=== PATIENT | female | born 1950 | race Caucasian/White ===

== ENCOUNTER 2018-10-02 23:02 | Emergency (ER) | payer BC, OTHER ==
[2018-10-03] MEDS ORDERED: FENTANYL CITR 100 MCG/2 ML ONE (00:34)
[2018-10-03 00:38] LABS: Urine Appearance CLEAR; Urine Bilirubin NEGATIVE (NEG); Urine Blood TRACE (NEG); Urine Color ORANGE; Urine Glucose NEGATIVE (NEG); Urine Protein NEGATIVE (NEG); Urine Specific Gravity <=1.005 (1.005-1.030); Urine pH 6.5 (5.0-7.0)
[2018-10-03 00:53] LABS: Urine Bacteria <20 /HPF (<20); Urine Culture Reflex Order NOT NEEDED; Urine RBC <5 /HPF (NONE SEEN)
[2018-10-03 04:09] LABS: Albumin 4.2 g/dL (3.4-5.0); Bilirubin Direct 0.1 mg/dL (0-0.2); Bilirubin Total 0.4 mg/dL (0.2-1.0); Protein, Total 7.3 g/dL (6.4-8.2)
[2018-10-03] MEDS ORDERED: NA CHLORIDE 0.9% 1,000 ML ONE (04:16)
[2018-10-03 04:46] LABS: Absolute Monocytes 0.4 K/uL (0.1-1.3); Absolute Neutrophil 3.1 K/uL (1.8-8.0); Basophils % 0.6 % (0-1.3); Eosinophils % 1.8 % (0-4.4); Lymphocytes % 35.2 % (15.3-44.8); MCH 31.5 pg (27.0-35.0); MCV 92.2 fL (80-100); MPV 10.3 fL (7.6-11.3); Monocytes % 7.4 % (3.3-12.3); RBC Red Blood Cell Count 4.44 M/uL (3.86-4.86)
[2018-10-03 04:48] LABS: Potassium 3.7 mmol/L (3.5-5.1)
[2018-10-03 05:07] LABS: Blood Morphology Comment NOT SEEN (NOT SEEN); Platelet Estimate ADEQ
--- NOTE | 2018-10-03 05:50 | ER ---
Nurse's Notes [facility] Name: Andreina Brock Age: 68 yrs Sex: Female : 1950 Arrival Date: 10/02/2018 Time: 23:09 Bed 4 Private MD: Diagnosis: Abdominal pain Presentation: 10/02 23:24 Presenting complaint: Patient states: Reports urinary frequency and pelvic pressure tl2 since 1500 today. States she feels like she has to go all the time but only a small amount comes out. Reports pain radiating to back. Transition of care: patient was not received from another setting of care. Onset of symptoms was October 02, 2018 at 15:00. Risk Assessment: Do you want to hurt yourself or someone else? Patient reports no desire to harm self or others. Initial Sepsis Screen: Does the patient meet any 2 criteria? No. Patient's initial sepsis screen is negative. Does the patient have a suspected source of infection? No. Patient's initial sepsis screen is negative. Care prior to arrival: None. 23:24 Method Of Arrival: Ambulatory tl2 23:24 Acuity: SILVANA 3 tl2 Triage Assessment: 23:26 General: Appears in no apparent distress. uncomfortable, Behavior is calm, cooperative, tl2 appropriate for age. Pain: Complains of pain in suprapubic area Pain radiates to left low back and right low back Pain currently is 10 out of 10 on a pain scale. Neuro: Level of Consciousness is awake, alert, obeys commands, Oriented to person, place, time, situation. Cardiovascular: Denies chest pain. Respiratory: Airway is patent Respiratory effort is even, unlabored, Respiratory pattern is regular, symmetrical. GI: No signs and/or symptoms were reported involving the gastrointestinal system. : Reports urgency, urinary frequency, Denies burning with urination. Derm: Skin is pink, warm \T\ dry. Historical: - Allergies: 23:26 PENICILLINS; tl2 - Home Meds: 23:26 ibuprofen 800 mg Oral tab 1 tab 3 times per day [Active]; tl2 - PMHx: 23:26 Arthritis; tl2 - PSHx: 23:26 Hysterectomy; tl2 - Immunization history:: Adult Immunizations up to date. - Social history:: Smoking status: Patient/guardian denies using tobacco, the patient reports quitting approximately 5 years ago. - Ebola Screening: : No symptoms or risks identified at this time. Screenin:29 Abuse screen: Denies threats or abuse. Nutritional screening: No deficits noted. tl2 Tuberculosis screening: No symptoms or risk factors identified. Fall Risk None identified. Assessment: 23:26 General: see triage assessment. tl2 10/03 01:30 Reassessment: Patient appears in no apparent distress at this time. Patient and/or rr5 family updated on plan of care and expected duration. Pain level reassessed. feeling relieved no complaints made. Patient states feeling better. Patient states symptoms have improved. 04:00 Reassessment: awaiting for CT report and review. rr5 06:00 Reassessment: Patient appears in no apparent distress at this time. Patient and/or rr5 family updated on plan of care and expected duration. Pain level reassessed. Patient is alert, oriented x 3, equal unlabored respirations, skin warm/dry/pink. discharged instruction explained and no complaint made. vitally stable. Patient states feeling better. Patient states symptoms have improved. Vital Signs: 10/02 23:26 BP 182 / 100; Pulse 76; Resp 18; Temp 97.8; Pulse Ox 98% on R/A; Weight 61.23 kg; tl2 Height 4 ft. 11 in. (149.86 cm); Pain 10; 10/03 00:02 BP 162 / 74; Pulse 63; Resp 18; Pulse Ox 100% on R/A; tl2 00:54 BP 141 / 72; Pulse 58; Resp 18; Pulse Ox 98% on R/A; tl2 01:46 BP 123 / 78; Pulse 52; Resp 18; Pulse Ox 98% on R/A; Pain 5/10; tl2 02:32 BP 162 / 67; Pulse 62; Resp 18; Pulse Ox 100% on R/A; tl2 04:22 BP 139 / 79; Pulse 54; Resp 18; Pulse Ox 97% on R/A; tl2 05:55 BP 135 / 75; Pulse 60; Resp 16; Pulse Ox 99% on R/A; Pain 0/10; rr5 10/02 23:26 Body Mass Index 27.27 (61.23 kg, 149.86 cm) tl2 ED Course: 10/02 23:09 Patient arrived in ED. ds1 23:24 Tena Ring, RN is Primary Nurse. tl2 23:24 Cat Shaw F[facility]-C [facility]. snw 23:24 Herman Acuña MD is Attending Physician. snw 23:25 Triage completed. tl2 23:26 Arm band placed on right wrist. tl2 23:26 Speci-cath kit inserted, using sterile technique, 12 Fr., specimen obtained. returned tl2 yakov urine. Patient tolerated well. 23:29 Patient has correct armband on for positive identification. Bed in low position. Call tl2 light in reach. Side rails up X 1. Adult w/ patient. 10/03 01:[address] via wheelchair. kw1 01:55 CT Stone Protocol In Process Unspecified. EDMS 01:57 CT completed. Patient tolerated procedure well. Patient moved back from CT. kw1 03:33 Inserted saline lock: 22 gauge in right upper arm, using aseptic technique. Blood tl2 collected. placed by alfredito Le. 05:52 Edison Stein MD is Referral Physician. pkl 05:55 No provider procedures requiring assistance completed. IV discontinued, intact, rr5 bleeding controlled, No redness/swelling at site. Pressure dressing applied. Administered Medications: Discontinued: NS 0.9% 1000 ml IV at 125 ml/hr continuous 00:28 Drug: fentaNYL (PF) 50 mcg Route: IM; Site: right deltoid; tl2 00:55 Follow up: Response: No adverse reaction; Pain is decreased tl2 04:12 Drug: NS 0.9% 1000 ml Route: IV; Rate: 125 ml/hr; Site: right upper arm; tl2 06:00 Follow up: Response: No adverse reaction; IV Status: Order to discontinue infusion; IV rr5 Intake: 250ml Intake: 06:00 IV: 250ml; Total: 250ml. rr5 Outcome: 05:49 Discharge ordered by . pkl 05:55 Discharged to home rr5 05:55 Condition: stable 05:55 Discharge instructions given to patient, Instructed on discharge instructions, follow up and referral plans. medication usage, Demonstrated understanding of instructions, follow-up care, medications, Prescriptions given X 1. 06:09 Patient left the ED. rr5 Signatures: Dispatcher [employer] EDNM Herman Acuña MD MD pkCat Hare FNP-C FNP-Angi Gurrola1 Tena Ring, RN RN tl2 Shira Salguero kw1 Ernesto Loaiza, RN RN rr5
--- NOTE | 2018-10-03 05:50 | EDPHYS ---
Physician Documentation [facility] Name: Andreina Brock Age: 68 yrs Sex: Female : 1950 Arrival Date: 10/02/2018 Time: 23:09 Bed 4 Private MD: ED Physician Herman Acuña HPI: 10/03 00:15 This 68 yrs old Female presents to ER via Ambulatory with complaints of snw Urinary Frequency, Urinary Problem. 00:15 The patient presents with urinary symptoms, dysuria, frequency, hesitancy, urgency. snw Onset: The symptoms/episode began/occurred suddenly, today. Modifying factors: The symptoms are alleviated by nothing. Associated signs and symptoms: Pertinent positives: dysuria, headache. Severity of symptoms: At their worst the symptoms were moderate. The patient has experienced similar episodes in the past. The patient has not recently seen a physician, the patient's primary care provider is Dr. Dr. Stein. Historical: - Allergies: 10/02 23:26 PENICILLINS; tl2 - Home Meds: 23:26 ibuprofen 800 mg Oral tab 1 tab 3 times per day [Active]; tl2 - PMHx: 23:26 Arthritis; tl2 - PSHx: 23:26 Hysterectomy; tl2 - Immunization history:: Adult Immunizations up to date. - Social history:: Smoking status: Patient/guardian denies using tobacco, the patient reports quitting approximately 5 years ago. - Ebola Screening: : No symptoms or risks identified at this time. ROS: 10/03 00:13 Constitutional: Negative for fever, chills, and weight loss, + fatigue x 2 days Eyes: snw Negative for injury, pain, redness, and discharge, ENT: Negative for injury, pain, and discharge, Neck: Negative for injury, pain, and swelling, Cardiovascular: Negative for chest pain, palpitations, and edema, Respiratory: Negative for shortness of breath, cough, wheezing, and pleuritic chest pain, MS/Extremity: Negative for injury and deformity, Skin: Negative for injury, rash, and discoloration, Neuro: Negative for weakness, numbness, tingling, and seizure, intermittent headache Abdomen/GI: Positive for abdominal pain, of the right lower quadrant and left lower quadrant. Back: Positive for radiated pain, of the low back area. : Positive for urinary symptoms, small amounts, burning with urination, difficulty urinating. Exam: 00:13 Constitutional: This is a well developed, well nourished patient who is awake, alert, snw and in no acute distress. Head/Face: Normocephalic, atraumatic. Eyes: Pupils equal round and reactive to light, extra-ocular motions intact. Lids and lashes normal. Conjunctiva and sclera are non-icteric and not injected. Cornea within normal limits. Periorbital areas with no swelling, redness, or edema. ENT: Nares patent. No nasal discharge, no septal abnormalities noted. Tympanic membranes are normal and external auditory canals are clear. Oropharynx with no redness, swelling, or masses, exudates, or evidence of obstruction, uvula midline. Mucous membranes moist. Neck: Trachea midline, no thyromegaly or masses palpated, and no cervical lymphadenopathy. Supple, full range of motion without nuchal rigidity, or vertebral point tenderness. No Meningismus. Chest/axilla: Normal chest wall appearance and motion. Nontender with no deformity. No lesions are appreciated. Cardiovascular: Regular rate and rhythm with a normal S1 and S2. No gallops, murmurs, or rubs. Normal PMI, no JVD. No pulse deficits. Respiratory: Lungs have equal breath sounds bilaterally, clear to auscultation and percussion. No rales, rhonchi or wheezes noted. No increased work of breathing, no retractions or nasal flaring. Skin: Warm, dry with normal turgor. Normal color with no rashes, no lesions, and no evidence of cellulitis. MS/ Extremity: Pulses equal, no cyanosis. Neurovascular intact. Full, normal range of motion. Neuro: Awake and alert, GCS 15, oriented to person, place, time, and situation. Cranial nerves II-XII grossly intact. Motor strength 5/5 in all extremities. Sensory grossly intact. Cerebellar exam normal. Normal gait. Psych: Awake, alert, with orientation to person, place and time. Behavior, mood, and affect are within normal limits. 00:13 Abdomen/GI: Inspection: abdomen appears normal, Bowel sounds: normal, Palpation: mild abdominal tenderness, in the right lower quadrant and left lower quadrant. 00:13 Back: pain, that is moderate, of the low back area, ROM is normal, normal spinal alignment noted. Vital Signs: 10/02 23:26 BP 182 / 100; Pulse 76; Resp 18; Temp 97.8; Pulse Ox 98% on R/A; Weight 61.23 kg; tl2 Height 4 ft. 11 in. (149.86 cm); Pain 10; 10/03 00:02 BP 162 / 74; Pulse 63; Resp 18; Pulse Ox 100% on R/A; tl2 00:54 BP 141 / 72; Pulse 58; Resp 18; Pulse Ox 98% on R/A; tl2 01:46 BP 123 / 78; Pulse 52; Resp 18; Pulse Ox 98% on R/A; Pain 5/10; tl2 02:32 BP 162 / 67; Pulse 62; Resp 18; Pulse Ox 100% on R/A; tl2 04:22 BP 139 / 79; Pulse 54; Resp 18; Pulse Ox 97% on R/A; tl2 05:55 BP 135 / 75; Pulse 60; Resp 16; Pulse Ox 99% on R/A; Pain 0/10; rr5 10/02 23:26 Body Mass Index 27.27 (61.23 kg, 149.86 cm) tl2 MDM: 10/02 23:28 Patient medically screened. snw 10/03 02:56 Data reviewed: vital signs, nurses notes. Data interpreted: Pulse oximetry: on room air snw is 100 %. Interpretation: normal. Counseling: I had a detailed discussion with the patient and/or guardian regarding: the historical points, exam findings, and any diagnostic results supporting the discharge/admit diagnosis, the presence of at least one elevated blood pressure reading (>120/80) during this emergency department visit, radiology results. Medication response: pain improved, pt states pressure remains, reassessment of abd with mild tenderness to left lower quad, moderate to severe tenderness to right lower quad. . 03:05 Transition of care: After a detail discussion of the patient's case, care is snw transferred to Herman Acuña MD. 10/02 23:27 Order name: Urine Culture [facility] 10/02 23:27 Order name: Urine Microscopic Only [facility] 10/02 23:28 Order name: Urine Culture EDCT 10/03 00:18 Order name: Urinalysis W/Microscopic; Complete Time: 00:59 EDCT 10/03 02:55 Order name: Creatinine for Radiology; Complete Time: 04:37 sn 10/03 01:00 Order name: CT Stone Protocol [facility] 10/03 02:55 Order name: Hepatic Function; Complete Time: 05:05 sn 10/03 02:55 Order name: Lipase; Complete Time: 05:05 sn 10/03 02:55 Order name: Blood Culture* [facility] 10/03 04:37 Order name: CBC with Manual Differential; Complete Time: 05:16 bb 10/03 04:39 Order name: Basic Metabolic Panel; Complete Time: 05:05 EDCT 10/02 23:27 Order name: Urine Dipstick-Ancillary (obtain specimen); Complete Time: 23:58 sn 10/02 23:27 Order name: Cath; Complete Time: 23:58 [facility] 10/03 02:55 Order name: IV Saline Lock; Complete Time: 03:33 snw 10/03 02:55 Order name: Labs collected and sent; Complete Time: 03:33 sn 10/03 02:55 Order name: NPO; Complete Time: 02:59 snw Administered Medications: Discontinued: NS 0.9% 1000 ml IV at 125 ml/hr continuous 00:28 Drug: fentaNYL (PF) 50 mcg Route: IM; Site: right deltoid; tl2 00:55 Follow up: Response: No adverse reaction; Pain is decreased tl2 04:12 Drug: NS 0.9% 1000 ml Route: IV; Rate: 125 ml/hr; Site: right upper arm; tl2 06:00 Follow up: Response: No adverse reaction; IV Status: Order to discontinue infusion; IV rr5 Intake: 250ml Disposition: 05:48 Co-signature as Attending Physician, Herman Acuña MD. [email or web address] Disposition: 10/03/18 05:49 Discharged to Home. Impression: Abdominal pain. - Condition is Stable. - Prescriptions for Ultram 50 mg Oral Tablet - take 1 tablet by ORAL route every 8 hours As needed; 20 tablet. - Medication Reconciliation Form, Thank You Letter, Antibiotic Education, Prescription Opioid Use form. - Follow up: Edison Stein MD; When: 1 - 2 days; Reason: Re-evaluation by your physician. - Problem is new. - Symptoms have improved. Signatures: Dispatcher [employer] Herman Hurst MD MD pkCat Hare, FI[employer]PARTMENT MARINE ENGINEER-C FI[employer] DEPARTMENT MARINE ENGINEER-Csnw Ring, Tena, RN RN tl2 Ernesto Loaiza, RN RN rr5 Corrections: (The following items were deleted from the chart) 00:18 10/02 23:28 Urine Microscopic Only ordered. EDCT EDMS 10/03 04:39 04:38 BASIC METABOLIC PANEL+[id number].LAB.BRZ ordered. [facility] EDMS 05:52 05:49 10/03/2018 05:49 Discharged to Home. Impression: Abdominal pain. Condition is pkl Stable. Forms are Medication Reconciliation Form, Thank You Letter, Antibiotic Education, Prescription Opioid Use. Problem is new. Symptoms have improved. pkl 06:09 05:52 10/03/2018 05:49 Discharged to Home. Impression: Abdominal pain. Condition is rr5 Stable. Prescriptions for Ultram 50 mg Oral Tablet - take 1 tablet by ORAL route every 8 hours As needed; 20 tablet. and Forms are Medication Reconciliation Form, Thank You Letter, Antibiotic Education, Prescription Opioid Use. Follow up: Edison Stein; When: 1 - 2 days; Reason: Re-evaluation by your physician. Problem is new. Symptoms have improved. pkl
[2018-10-03 06:22] VITALS: TEMP 97.8
[2018-10-03 06:28] VITALS: BP 139/79; O2SAT 97
--- NOTE | 2018-10-03 08:35 | RAD REPORT ---
EXAM DESCRIPTION: CT - Stone Protocol - 10/03/2018 5:53 am CLINICAL HISTORY: Flank pain. FLANK PAIN COMPARISON: CT ABD PELVIS W CONTRAST dated 04/04/2008 TECHNIQUE: Axial images were obtained without oral or IV contrast. Lack of contrast limits solid org an and vascular assessment. The [id number] spans the entirety of the system partially obscuring uppermost abdomen and lung bases. Coronal reformatted images were obtained and reviewed. All CT scans are performed using dose optimization technique as appropriate and may include automated exposure control or mA/KV adjustment according to patient size. FINDINGS: The lower lung dacosta are clear. Small axial hiatal hernia. No splenic abnormality seen.Small low-density liver lesions likely cysts. The pancreas and adrenal gl ands are normal. No pathologic lymphadenopathy in the abdomen or pelvis. 1 mm right UVJ stone is present without significant hydronephrosis. Punctate left nephrolithiasis is seen with minimal left hydronephrosis. No bowel obstruction, free air, free fluid or abscess. Mildly prominent appendiceal size without evid ence of acute appendicitis.Prominent sigmoid diverticulosis without diverticulitis. Moderate L4-5 spondylosis. IMPRESSION: Punctate calculus right UVJ without right-sided hydronephrosis. Left nephrolithiasis. L4-5 spondylosis. Prominent sigmoid diverticulosis without diverticulitis.
== END 2018-10-03 06:09 | disposition home or self-care (01) ==
LOC: ER 23:02
DX: R10.30 Lower abdominal pain, unspecified (principal); Z88.0 Allergy status to penicillin
CPT/HCPCS: 36415; 74176; 76377; 80048; 80076; 81001; 83690; 85025; 87040 ×2; 87088; 96360; 96361; 96372; 99284; J3010; J7030; 87086

== ENCOUNTER 2024-02-18 12:01 | Emergency (ER) | payer MEDICARE ==
--- OUTSIDE RECORDS SUMMARY | 2024-02-18 12:05 | XMS REPORT | Continuity of Care Document ---
Author Name Unknown Address [address] [facility] [place] [address] [facility] Address [address] [facility] [address] [place] [address] Care Team Providers Care Tower Equipment Repairer Name Role Phone David Parra Attending Clinician Unavailable Manjinder Chow Attending Clinician Unavailable [place] Attending Clinician Unavailable [place] Admitting Clinician Unavailable Payers Payer Name Policy Type Policy Number Effective Date Expirati on Date Source [facility] (MEDICARE REPLACEMENT HMO) [id number] 2023 00:00:00 Problems Condition Name Condition Details Condition Category Status Onset Date Resolution Date Last Treatment Date Treating Clinician Comments Source [id number] Gastro-eso phageal reflux disease with esophagiti s, without bleeding Problem [facility] [id number] Paresthesi a of skin Problem [facility] [id number] Pain, joint, knee, right Problem [facility] [id number] Ulcerative colitis with other complicati on, unspecifie d location Problem [facility] [id number] Gastric ulcer without hemorrhage or perforatio n, unspecifie d chronicity Problem [facility] [id number] Osteoarthr itis of multiple joints, unspecifie d osteoarthr itis type Problem [facility] Crohn's disease of large bowel Crohn's disease of colon with rectal bleeding Problem [facility] [id number] Gastro-eso phageal reflux disease without esophagiti s Problem [facility] [id number] 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 Problem [facility] [id number] Hypertrigl yceridemia Problem [facility] [id number] Unspecifie d internal derangemen t of right knee Problem [facility] [id number] Body mass index [BMI] 33.0-33.9, adult Problem [facility] [id number] Sleep apnea in adult Problem [facility] [id number] Other obesity due to excess calories Problem [facility] Allergies, Adverse Reactions, Alerts Allergy Name Allergy Type Status Severity Reaction(s) Onset Date Inactive Date Treating Clinician Comments Source codeine codeine Active Unknown [facility] 0 Drug allergy Active Unknown [facility] Social History Social Habit Start Date Stop Date Quantity Comments Source History of Tobacco Use [facility] Sex Assigned At [facility] Smoking Status Start Date Stop Date Source Former Smoker 2024-02-08 00:00:00 2024-02-08 00:00:00 [facility] Never Smoker [facility] Medications Ordered Medication Name Filled Medication Name Start Date Stop Date Current Medication? Ordering Clinician Indication Dosage Frequency Signature (SIG) Comments Components Source Ibuprofen Ibuprofen Yes [place] not defined [facility] PredniSONE PredniSONE Yes [place] not defined [facility] Azithromyci n Azithromyci n Yes [place] not defined [facility] Toprol XL 50 MG Toprol XL 50 MG No QD Toprol XL 50 MG Skyrizi 360 MG/2.4ML Skyrizi 360 MG/2.4ML No Skyrizi 360 MG/2.4ML Toprol XL 50 MG Toprol XL 50 MG No QD Toprol XL 50 MG Skyrizi 360 MG/2.4ML Skyrizi 360 MG/2.4ML No Skyrizi 360 MG/2.4ML Toprol XL 50 MG Toprol XL 50 MG No QD Toprol XL 50 MG Skyrizi 360 MG/2.4ML Skyrizi 360 MG/2.4ML No Skyrizi 360 MG/2.4ML Toprol XL 50 MG Toprol XL 50 MG No QD Toprol XL 50 MG Skyrizi 360 MG/2.4ML Skyrizi 360 MG/2.4ML No Skyrizi 360 MG/2.4ML Toprol XL 50 MG Toprol XL 50 MG No QD Toprol XL 50 MG Skyrizi 360 MG/2.4ML Skyrizi 360 MG/2.4ML No Skyrizi 360 MG/2.4ML Toprol XL 50 MG Toprol XL 50 MG No QD Toprol XL 50 MG Skyrizi 360 MG/2.4ML Skyrizi 360 MG/2.4ML No Skyrizi 360 MG/2.4ML Toprol XL 50 MG Toprol XL 50 MG No QD Toprol XL 50 MG Skyrizi 360 MG/2.4ML Skyrizi 360 MG/2.4ML No Skyrizi 360 MG/2.4ML Toprol XL 50 MG Toprol XL 50 MG No QD Toprol XL 50 MG Skyrizi 360 MG/2.4ML Skyrizi 360 MG/2.4ML No Skyrizi 360 MG/2.4ML Toprol XL 50 MG Toprol XL 50 MG No QD Toprol XL 50 MG Skyrizi 360 MG/2.4ML Skyrizi 360 MG/2.4ML No Skyrizi 360 MG/2.4ML Toprol XL 50 MG Toprol XL 50 MG No QD Toprol XL 50 MG Skyrizi 360 MG/2.4ML Skyrizi 360 MG/2.4ML No Skyrizi 360 MG/2.4ML Toprol XL 50 MG Toprol XL 50 MG No QD Toprol XL 50 MG Skyrizi 360 MG/2.4ML Skyrizi 360 MG/2.4ML No Skyrizi 360 MG/2.4ML Pantoprazol e Sodium 40 MG Pantoprazol e Sodium 40 MG No 1{table t} QD Pantoprazo le Sodium 40 MG Toprol XL 50 MG Toprol XL 50 MG No QD Toprol XL 50 MG Pantoprazol e Sodium 40 MG Pantoprazol e Sodium 40 MG No 1{table t} QD Pantoprazo le Sodium 40 MG Toprol XL 50 MG Toprol XL 50 MG No QD Toprol XL 50 MG Pantoprazol e Sodium 40 MG Pantoprazol e Sodium 40 MG No 1{table t} QD Pantoprazo le Sodium 40 MG Toprol XL 50 MG Toprol XL 50 MG No QD Toprol XL 50 MG Skyrizi 360 MG/2.4ML Skyrizi 360 MG/2.4ML No Skyrizi 360 MG/2.4ML Toprol XL 50 MG Toprol XL 50 MG No QD Toprol XL 50 MG Skyrizi 360 MG/2.4ML Skyrizi 360 MG/2.4ML No Skyrizi 360 MG/2.4ML Toprol XL 50 MG Toprol XL 50 MG No QD Toprol XL 50 MG Skyrizi 360 MG/2.4ML Skyrizi 360 MG/2.4ML No Skyrizi 360 MG/2.4ML Toprol XL 50 MG Toprol XL 50 MG No QD Toprol XL 50 MG Skyrizi 360 MG/2.4ML Skyrizi 360 MG/2.4ML No Skyrizi 360 MG/2.4ML Toprol XL 50 MG Toprol XL 50 MG No QD Toprol XL 50 MG Skyrizi 360 MG/2.4ML Skyrizi 360 MG/2.4ML No Skyrizi 360 MG/2.4ML Vital Signs Vital Name Observation Time Observation Value Comments S ource height 2024-02-08 09:40:00 58 [in_i] Commo n [facility] weight 2024-02-08 09:40:00 159.0 [lb_av] Co mmon [facility] temperature 2024-02-08 09:40:00 97.3 [degF] Com mon [facility] bmi 2024-02-08 09:40:00 33.23 kg/m2 Comm on [facility] oximetry 2024-02-08 09:40:00 96 % Commo n [facility] respiratory rate 2024-02-08 09:40:00 18 /min Common [facility] blood pressure systolic 2024-02-08 09:40:00 120 mm[Hg] [facility] blood pressure diastolic 2024-02-08 09:40:00 74 mm[Hg] [facility] height 2024-02-08 09:30:00 58 [in_i] Commo n [facility] weight 2024-02-08 09:30:00 159.0 [lb_av] Co mmon [facility] temperature 2024-02-08 09:30:00 97.3 [degF] Com mon [facility] bmi 2024-02-08 09:30:00 33.23 kg/m2 Comm on [facility] oximetry 2024-02-08 09:30:00 96 % Commo n [facility] respiratory rate 2024-02-08 09:30:00 18 /min Common [facility] blood pressure systolic 2024-02-08 09:30:00 120 mm[Hg] [facility] blood pressure diastolic 2024-02-08 09:30:00 74 mm[Hg] Common [facility] height 2023-10-14 16:00:00 58 [in_i] Commo n [facility] weight 2023-10-14 16:00:00 161.6 [lb_av] Co mmon [facility] temperature 2023-10-14 16:00:00 97.4 [degF] Com mon [facility] bmi 2023-10-14 16:00:00 33.77 kg/m2 Comm on [facility] oximetry 2023-10-14 16:00:00 98 % Commo n [facility] blood pressure systolic 2023-10-14 16:00:00 138 mm[Hg] [facility] blood pressure diastolic 2023-10-14 16:00:00 80 mm[Hg] Common [facility] height 2023-08-10 08:50:00 58 [in_i] Commo n [facility] weight 2023-08-10 08:50:00 162.6 [lb_av] Co [facility] temperature 2023-08-10 08:50:00 97.3 [degF] Com [facility] bmi 2023-08-10 08:50:00 33.98 kg/m2 Comm on [facility] oximetry 2023-08-10 08:50:00 97 % Commo n [facility] respiratory rate 2023-08-10 08:50:00 18 /min Common [facility] blood pressure systolic 2023-08-10 08:50:00 123 mm[Hg] Common [facility] blood pressure diastolic 2023-08-10 08:50:00 64 mm[Hg] Common [facility] height 2023-07-06 15:10:00 58 [in_i] Commo n [facility] weight 2023-07-06 15:10:00 160.0 [lb_av] Co [facility] temperature 2023-07-06 15:10:00 97.9 [degF] Com [facility] bmi 2023-07-06 15:10:00 33.44 kg/m2 Comm on [facility] oximetry 2023-07-06 15:10:00 97 % Commo n [facility] respiratory rate 2023-07-06 15:10:00 17 /min Common [facility] blood pressure systolic 2023-07-06 15:10:00 130 mm[Hg] Common [facility] blood pressure diastolic 2023-07-06 15:10:00 71 mm[Hg] Common [facility] height 2023-07-06 15:10:00 58 [in_i] Commo n [facility] weight 2023-07-06 15:10:00 160.0 [lb_av] Co mmon [facility] temperature 2023-07-06 15:10:00 97.9 [degF] Com mon [facility] bmi 2023-07-06 15:10:00 33.44 kg/m2 Comm on [facility] oximetry 2023-07-06 15:10:00 97 % Commo n [facility] respiratory rate 2023-07-06 15:10:00 17 /min Common [facility] blood pressure systolic 2023-07-06 15:10:00 130 mm[Hg] Common [facility] blood pressure diastolic 2023-07-06 15:10:00 71 mm[Hg] [facility] height 2023-06-14 08:40:00 58 [in_i] Commo n [facility] weight 2023-06-14 08:40:00 161.8 [lb_av] Co on [facility] temperature 2023-06-14 08:40:00 97.9 [degF] Com mon [facility] bmi 2023-06-14 08:40:00 33.81 kg/m2 Comm on [facility] oximetry 2023-06-14 08:40:00 98 % Commo n [facility] respiratory rate 2023-06-14 08:40:00 18 /min Common [facility] blood pressure systolic 2023-06-14 08:40:00 135 mm[Hg] [facility] blood pressure diastolic 2023-06-14 08:40:00 63 mm[Hg] Common [facility] height 2023-05-25 15:10:00 58 [in_i] Commo n [facility] weight 2023-05-25 15:10:00 157 [lb_av] Comm on [facility] bmi 2023-05-25 15:10:00 32.81 kg/m2 Comm on [facility] height 2023-04-01 08:40:00 58 [in_i] Commo n [facility] weight 2023-04-01 08:40:00 156.8 [lb_av] Co mmon [facility] temperature 2023-04-01 08:40:00 97.5 [degF] Com mon [facility] bmi 2023-04-01 08:40:00 32.77 kg/m2 Comm on [facility] oximetry 2023-04-01 08:40:00 96 % Commo n [facility] respiratory rate 2023-04-01 08:40:00 17 /min [facility] blood pressure systolic 2023-04-01 08:40:00 118 mm[Hg] [facility] blood pressure diastolic 2023-04-01 08:40:00 65 mm[Hg] [facility] Encounters Start Date/Time End Date/Time Encounter Type Admission Type Attending Clinicians Care Facility Care Department Encounter ID Source 2024-02-07 08:29:00 Outpatient Parra, David STLMLC ST[facility] [id number] [facility] 2023-08-06 08:55:00 Outpatient Parra, David STLMLC ST[facility] [id number] [facility] 2023-07-02 10:11:00 Outpatient Parra, David STLMLC ST[facility] [id number] [facility] 2023-06-29 16:22:00 Outpatient Parra, David STLMLC ST[facility] [id number] [facility] 2023-04-01 07:38:00 Outpatient ChowManjinder STLMLC STL[facility] [id number] [facility] 2023-03-09 13:55:00 Outpatient Manjinder Chow STLMLC STLML[facility] [id number] [facility] 2023-02-11 15:48:00 Outpatient STLMLC STLMLC [id number] [facility] 2023-02-09 13:29:00 Outpatient STLMLC STLMLC [id number] [facility] 2023-01-19 11:47:00 Outpatient STLMLC STLMLC [id number] [facility] 2024-02-08 00:00:00 2024-02-08 00:00:00 SUB ANNUAL [facility] VISIT STLMLC STLMLC [id number] [facility] 2024-02-08 00:00:00 2024-02-08 00:00:00 OFFICE VISIT ESTAB PT LEVEL 4 STLMLC STLMLC [id number] [facility] 2024-02-08 00:00:00 2024-02-08 00:00:00 (TEL) STLMLC STLMLC [id number] [facility] 2023-10-21 00:00:00 2023-10-21 00:00:00 (TEL) STLMLC STLMLC [id number] [facility] 2023-10-18 00:00:00 2023-10-18 00:00:00 (TEL) STLMLC STLMLC [id number] [facility] 2023-10-14 00:00:00 2023-10-14 00:00:00 OFFICE VISIT ESTAB PT LEVEL 3 STLMLC STLMLC [id number] [facility] 2023-10-14 00:00:00 2023-10-14 00:00:00 (TEL) STLMLC STLMLC [id number] [facility] 2023-08-24 00:00:00 2023-08-24 00:00:00 (TEL) STLMLC STLMLC [id number] [facility] 2023-08-10 00:00:00 2023-08-10 00:00:00 OFFICE VISIT ESTAB PT LEVEL 4 STLMLC STLMLC [id number] [facility] 2023-08-10 00:00:00 2023-08-10 00:00:00 (TEL) STLMLC STLMLC [id number] [facility] 2023-08-06 00:00:00 2023-08-06 00:00:00 (TEL) STLMLC STLMLC [id number] [facility] 2023-07-06 00:00:00 2023-07-06 00:00:00 SUB ANNUAL [facility] VISIT STLMLC STLMLC [id number] [facility] 2023-07-06 00:00:00 2023-07-06 00:00:00 OFFICE VISIT ESTAB PT LEVEL 4 STLMLC STLMLC [id number] [facility] 2023-06-14 00:00:00 2023-06-14 00:00:00 OFFICE VISIT ESTAB PT LEVEL 3 STLMLC STLMLC [id number] [facility] 2023-06-09 00:00:00 2023-06-09 00:00:00 (TEL) STLMLC STLMLC [id number] [facility] 2023-05-28 00:00:00 2023-05-28 00:00:00 (TEL) STLMLC STLMLC [id number] [facility] 2023-05-25 00:00:00 2023-05-25 00:00:00 OFFICE VISIT ESTAB PT LEVEL 3 STLMLC STLMLC [id number] [facility] 2023-05-25 00:00:00 2023-05-25 00:00:00 (TEL) STLMLC STLMLC [id number] [facility] 2023-05-19 00:00:00 2023-05-19 00:00:00 (TEL) STLMLC STLMLC [id number] [facility] 2023-04-01 00:00:00 2023-04-01 00:00:00 OFFICE VISIT NEW PT LEVEL 3 STLMLC STLMLC [id number] [facility] 2023-03-12 00:00:00 2023-03-12 00:00:00 [facility] [id number] [facility] 2023-02-12 00:00:00 2023-02-12 00:00:00 [facility] [id number] [facility] 2022-12-31 00:00:00 2022-12-31 00:00:00 Outpatient [facility] [id number] [facility] 2019-04-25 14:30:00 2019-04-25 14:30:00 Outpatient [facility] [id number] [facility] Results Test Description Test Time Test Comments Results Result Co mments Source HEMOGLOBIN [id number] 00:00:00* Test Item Value Reference Range Interpretation Comme nts HEMOGLOBIN A1c (test code = 4548-4) 6.1 % See_Comment H [Automated Project [employer]] The system which generated this result transmitted reference range: 4.2-5.6 %. The reference range was not used to interpret this result as normal/abnormal. TSH REFLEX TO FREE [id number] 00:00:00* Test Item Value Reference Range Interpretation Comme nts TSH REFLEX TO FREE T4 (test code = 24642-1) 2.580 UIU/ML See_Comment [Automated messa ge] The system which generated this result transmitted reference range: 0.400-4.100 UIU/ML. The reference range was not used to interpret this result as normal/abnormal. URINALYSIS (CULTURE IF INDICATED)2023-07-06 00:00:00* Test Item Value Reference Range Interpretation Comme nts APPEARANCE (test code = 5767-9) CLEAR CLEAR BILIRUBIN (test code = 5770-3) NEGATIVE NEGATIVE COLOR (test code = 5778-6) YELLOW YELLOW-STRAW GLUCOSE (test code = 5792-7) NEGATIVE NEGATIVE KETONES (test code = 5797-6) NEGATIVE NEGATIVE LEUKOCYTE ESTERASE (test code = 5799-2) NEGATIVE NEGATIVE NITRITE (test code = 5802-4) NEGATIVE NEGATIVE OCCULT BLOOD (test code = 08441-0) NEGATIVE NEGATIVE pH (test code = 5803-2) 5.0 5.0-9.0 PROTEIN (test code = 64900-5) NEGATIVE NEGATIVE SPECIFIC GRAVITY (test code = 5811-5) 1.030 1.005-1.035 UROBILINOGEN (test code = 30176-8) 0.2 MG/DL See_Comment [Automated messa ge] The system which generated this result transmitted reference range: <=2.0 MG/DL. The reference range was not used to interpret this result as normal/abnormal. LIPID PANEL WITH REFLEX DIRECT [id number] 00:00:00* Test Item Value Reference Range Interpretation Comme nts CALC LDL CHOL (test code = 36807-1) 77 MG/DL See_Comment [Automated messa ge] The system which generated this result transmitted reference range: <100 MG/DL. The reference range was not used to interpret this result as normal/abnormal. CHOLESTEROL (test code = 2093-3) 162 MG/DL See_Comment [Automated messa ge] The system which generated this result transmitted reference range: <200 MG/DL. The reference range was not used to interpret this result as normal/abnormal. HDL CHOLESTEROL (test code = 2085-9) 57 MG/DL See_Comment [Automated messa ge] The system which generated this result transmitted reference range: >39 MG/DL. The reference range was not used to interpret this result as normal/abnormal. RISK RATIO LDL/HDL (test code = 08199-3) 1.35 RATIO See_Comment [Automated message] The system which generated this result transmitted reference range: <3.22 RATIO. The reference range was not used to interpret this result as normal/abnormal. TRIGLYCERIDES (test code = 2571-8) 187 MG/DL See_Comment H [Automated messa ge] The system which generated this result transmitted reference range: <150 MG/DL. The reference range was not used to interpret this result as normal/abnormal. COMPREHENSIVE METABOLIC [id number] 00:00:00* Test Item Value Reference Range Interpretation Comme nts ALBUMIN (test code = 1751-7) 4.6 G/DL See_Comment [Automated messa ge] The system which generated this result transmitted reference range: 3.5-5.2 G/DL. The reference range was not used to interpret this result as normal/abnormal. ALKALINE PHOSPHATASE (test code = 6768-6) 61 U/L See_Comment [Automated message] The system which generated this result transmitted reference range: 40-142 U/L. The reference range was not used to interpret this result as normal/abnormal. BILIRUBIN, TOTAL (test code = 1975-2) 0.2 MG/DL See_Comment [Automated message] The system which generated this result transmitted reference range: <=1.2 MG/DL. The reference range was not used to interpret this result as normal/abnormal. BUN (test code = 3094-0) 14 MG/DL See_Comment [Automated messa ge] The system which generated this result transmitted reference range: 8-23 MG/DL. The reference range was not used to interpret this result as normal/abnormal. CALCIUM (test code = 10796-3) 9.2 MG/DL See_Comment [Automated messa ge] The system which generated this result transmitted reference range: 8.5-10.5 MG/DL. The reference range was not used to interpret this result as normal/abnormal. CALC A/G RATIO (test code = 1759-0) 2.4 RATIO See_Comment [Automated messa ge] The system which generated this result transmitted reference range: 1.0-2.6 RATIO. The reference range was not used to interpret this result as normal/abnormal. CALC BUN/CREAT (test code = 3097-3) 18 RATIO See_Comment [Automated messa ge] The system which generated this result transmitted reference range: 6-28 RATIO. The reference range was not used to interpret this result as normal/abnormal. CALC GLOBULIN (test code = 62725-3) 1.9 G/DL See_Comment [Automated messa ge] The system which generated this result transmitted reference range: 1.9-3.7 G/DL. The reference range was not used to interpret this result as normal/abnormal. CARBON DIOXIDE (test code = 1963-8) 26 MEQ/L See_Comment [Automated messa ge] The system which generated this result transmitted reference range: 19-31 MEQ/L. The reference range was not used to interpret this result as normal/abnormal. CHLORIDE (test code = 2075-0) 105 MEQ/L See_Comment [Automated messa ge] The system which generated this result transmitted reference range: 95-107 MEQ/L. The reference range was not used to interpret this result as normal/abnormal. CREATININE (test code = 2160-0) 0.77 MG/DL See_Comment [Automated messa ge] The system which generated this result transmitted reference range: 0.60-1.30 MG/DL. The reference range was not used to interpret this result as normal/abnormal. eGFR (2020 CKD-EPI) (test code = 26903-0) 82 ML/MIN/1.73 See_Comment [Automated messa ge] The system which generated this result transmitted reference range: >60 ML/MIN/1.73. The reference range was not used to interpret this result as normal/abnormal. GLUCOSE (test code = 1558-6) 121 MG/DL See_Comment H [Automated messa ge] The system which generated this result transmitted reference range: 70-99 MG/DL. The reference range was not used to interpret this result as normal/abnormal. POTASSIUM (test code = 2823-3) 3.9 MEQ/L See_Comment [Automated messa ge] The system which generated this result transmitted reference range: 3.5-5.4 MEQ/L. The reference range was not used to interpret this result as normal/abnormal. PROTEIN, TOTAL (test code = 2885-2) 6.5 G/DL See_Comment [Automated messa ge] The system which generated this result transmitted reference range: 6.1-8.3 G/DL. The reference range was not used to interpret this result as normal/abnormal. AST (test code = 1920-8) 23 U/L See_Comment [Automated messa ge] The system which generated this result transmitted reference range: 9-40 U/L. The reference range was not used to interpret this result as normal/abnormal. ALT (test code = 1742-6) 25 U/L See_Comment [Automated messa ge] The system which generated this result transmitted reference range: 5-40 U/L. The reference range was not used to interpret this result as normal/abnormal. SODIUM (test code = 2951-2) 144 MEQ/L See_Comment [Automated messa ge] The system which generated this result transmitted reference range: 133-146 MEQ/L. The reference range was not used to interpret this result as normal/abnormal.
[2024-02-18 12:56] LABS: Hemoglobin 12.8 g/dL (12.0-15.0); MCH 30.4 pg (27.0-35.0); MCHC 32.9 g/dL (32.0-36.0); MCV 92.4 fL (80-100); MPV 8.7 fL (7.6-11.3); Neutrophils % 72.4 % (41.7-73.7); Platelets 333 thou/uL (152-406); RBC Red Blood Cell Count 4.23 M/uL (3.86-4.86); Red Cell Distribution Width 14.8 % (12.1-15.2)
[2024-02-18 12:57] LABS: Absolute Basophils 0.1 K/uL (0-0.5); Absolute Eosinophils 0.1 K/uL (0-0.5); Absolute Monocytes 0.7 K/uL (0.1-1.3); Basophils % 0.7 % (0-1.3); Eosinophils % 1.2 % (0-4.4); Lymphocytes % 15.1 % (15.3-44.8); Monocytes % 10.6 % (3.3-12.3)
[2024-02-18 13:15] LABS: Albumin 3.1 g/dL (3.4-5.0); Albumin/Globulin Ratio 0.8 (1.1-1.8); Anion Gap 10.3 mEq/L (5.0-15.0); Bilirubin Total 0.4 mg/dL (0.2-1.0); Globulin 3.8 g/dL (2.3-3.5); Potassium 3.3 mEq/L (3.5-5.1); Protein, Total 6.9 g/dL (6.4-8.2)
[2024-02-18 13:19] LABS: Specific Gravity 1.024 (1.005-1.030); Urine Bacteria None Seen /HPF (<20); Urine Bilirubin NEGATIVE (Negative); Urine Blood 1+ (Negative); Urine Clarity Extremely Turbid (Clear); Urine Color Yellow (Yellow); Urine Culture Reflex Order NOT NEEDED; Urine Glucose TRACE (Negative); Urine Ketones 1+ (Negative); Urine Microscopic Reflex YN ORDER UMIC; Urine Mucus 2+ /HPF (None Seen); Urine Nitrite NEGATIVE (Negative); Urine Protein TRACE (Negative); Urine Urobilinogen Normal (Normal); Urine WBC <5 /HPF (<5); Urine WBC Clump Rare /HPF (None Seen)
[2024-02-18] MEDS ORDERED: CIPROFLOXACIN 400mg IV 400 MG/200 ML BAG IV ONE (14:54)
--- NOTE | 2024-02-18 15:01 | RAD REPORT ---
EXAM DESCRIPTION: CT - Abdomen Pelvis W Contrast - 02/18/2024 1:32 pm CLINICAL HISTORY: urinary retention COMPARISON: Abdomen Pelvis W Contrast dated 10/25/2023; CT ABD PELVIS W CONTRAST dated 04/04/2008 TECHNIQUE: Thin cut axial CT imaging of the abdomen and pelvis was performed following intravenous a dministration of 100 mL Isovue 300. Multiplanar reformats were generated and reviewed. All CT scans are performed using dose optimization technique as appropriate and may include automated exposure control or mA/KV adjustment according to patient size. FINDINGS: No suspicious findings in the lung bases. The liver shows diffuse parenchymal hypoattenuation suggesting steatosis. Numerous small hypoattenuat ing lesions, Edit largest along the right lobe anteriorly measuring 1.1 cm, not well characterized, b ut may represent small cysts Spleen, and adrenal glands, and pancreas show no suspicious findings. Ga llbladder and biliary tree are also without suspicious finding. Symmetric renal function is seen with no hydronephrosis or suspicious renal mass. No dilated bowel loops. Colonic diverticulosis. Mid sigmoid segment of mild wall thickening, improved since the prior exam, suggesting sequelae of prior diverticulitis. No evidence of acute diverticulit is. Left pelvic sidewall lobulated cystic lesions largest measuring 3.3 x 3.4 cm, likely of adnexal o rigin. No free air, free fluid or inflammatory stranding. No hernia, mass or bulky lymphadenopathy. T he urinary bladder is without significant finding. No suspicious bony findings. IMPRESSION: No acute intra-abdominal process. Short segment of mild mid sigmoid wall thickening, improved exam, suggesting sequelae of prior divert iculitis. Left adnexal complex cyst measuring 3.4 cm. If felt to relate to the patient's symptoms, this can be further evaluated by dedicated pelvic ultrasound. Colonic diverticulosis and numerous hepatic hypoattenuating lesions suggesting cysts, stable.
[2024-02-18] MEDS ORDERED: Levofloxacin500mg IV 500 MG/100 ML BAG IV ONE (15:19)
--- NOTE | 2024-02-18 15:54 | EDPHYS ---
Physician Documentation [facility] Name: Andreina Brock Age: 73 yrs Sex: Female : 1950 Arrival Date: 02/18/2024 Time: 12:01 Bed 11 Private MD: ED Physician Vijay Hills HPI: 02/17 13:35 This 73 yrs old Female presents to ER via Ambulatory with complaints of Urinary rn Problem, Vomiting. 13:35 The patient presents with urinary symptoms, urinary retention. Onset: The rn symptoms/episode began/occurred this morning. Modifying factors: The symptoms are alleviated by nothing, the symptoms are aggravated by nothing. Associated signs and symptoms: Pertinent positives: nausea, Pertinent negatives: fever, hematuria, vaginal bleeding, vaginal discharge. Severity of symptoms: At their worst the symptoms were mild, in the emergency department the symptoms are unchanged. The patient has not experienced similar symptoms in the past. The patient has not recently seen a physician. Patient reports difficulty urinating that began this morning. Patient reports has the urge to urinate but then just drips. No hematuria. Does report urine appeared darker today. No history of liver problems. No trauma. Has never had urinary problems before.. Historical: - Allergies: 12:29 Codeine; ap3 12:29 PENICILLINS; ap3 - Home Meds: 12:29 Skyrizi subcutaneous [Active]; ap3 - PMHx: 12:29 Arthritis; Diverticulitis; Crohn's disease; ap3 - Immunization history:: Client reports having NOT received the Covid vaccine. Flu vaccine is not up to date. - Infectious Disease History:: Denies. - Social history:: Smoking status: Patient denies any tobacco usage or history of. - Family history:: not pertinent. - Hospitalizations: : No recent hospitalization is reported. ROS: 13:35 Constitutional: Negative for fever, chills, and weight loss, Eyes: Negative for injury, rn pain, redness, and discharge, Neck: Negative for injury, pain, and swelling, Cardiovascular: Negative for chest pain, palpitations, and edema, Respiratory: Negative for shortness of breath, cough, wheezing, and pleuritic chest pain, Abdomen/GI: Negative for abdominal pain, nausea, vomiting, diarrhea, and constipation, Back: Negative for injury and pain, : Positive for difficulty urinating MS/Extremity: Negative for injury and deformity, Skin: Negative for injury, rash, and discoloration, Neuro: Negative for headache, weakness, numbness, tingling, and seizure, Exam: 13:35 Constitutional: This is a well developed, well nourished patient who is awake, alert, rn and in no acute distress. Head/Face: Normocephalic, atraumatic. Cardiovascular: Regular rate and rhythm. No pulse deficits. Respiratory: No increased work of breathing, no retractions or nasal flaring. Abdomen/GI: Soft, non-tender Back: No spinal tenderness. No costovertebral tenderness. Full range of motion. Skin: Warm, dry with normal turgor. Normal color with no rashes, no lesions, and no evidence of cellulitis. MS/ Extremity: Pulses equal, no cyanosis. Neuro: Awake and alert, GCS 15 Vital Signs: 12:27 BP 175 / 97; Pulse 74; Resp 17; Temp 98.6(O); Pulse Ox 100% ; Weight 71.21 kg; Height 4 ap3 ft. 11 in. ; 14:36 BP 143 / 77; Pulse 62; Resp 18; Pulse Ox 99% ; ap3 16:30 BP 140 / 71; Pulse 60; Resp 17; Temp 98.5; Pulse Ox 100% ; ap3 12:27 Body Mass Index 31.71 (71.21 kg, 149.86 cm) ap3 MDM: 12:08 Patient medically screened. rn 15:53 Differential diagnosis: urinary tract infection, Urinary tract infection, urinary rn retention. Data reviewed: vital signs, nurses notes, lab test result(s), radiologic studies, CT scan, and as a result, I will discharge patient. Counseling: I had a detailed discussion with the patient and/or guardian regarding the historical points, exam findings, and any diagnostic results supporting the discharge/admit diagnosis, lab results, radiology results, the need for outpatient follow up, to return to the emergency department if symptoms worsen or persist or if there are any questions or concerns that arise at home. Special discussion: I discussed with the patient/guardian in detail that at this point there is no indication for admission to the hospital. It is understood, however, that if the symptoms persist or worsen the patient needs to return immediately for re-evaluation. ED course: Postvoid residual very minimal. No evidence of bladder outlet obstruction or hydronephrosis. No stone. Given symptoms of dysuria and dribbling will treat as urinary tract infection and have patient follow-up with PCP.. 02/17 12:29 Order name: CBC with Diff; Complete Time: 13:29 rn 02/17 12:29 Order name: CMP; Complete Time: 13:29 rn 02/17 12:29 Order name: Lipase; Complete Time: 13:29 rn 02/17 12:29 Order name: Urinalysis w/ reflexes; Complete Time: 13:29 rn 02/17 12:29 Order name: CT Abd/Pelvis - IV Contrast Only; Complete Time: 15:03 rn 02/17 12:29 Order name: IV Saline Lock; Complete Time: 12:49 rn 02/17 12:29 Order name: Labs collected and sent; Complete Time: 12:49 rn 02/17 12:29 Order name: Bladder Scanner; Complete Time: 12:59 rn Administered Medications: 15:00 Not Given (Patient Refused): [id number] mg 200 ml IVPB once over 60 mins rn 15:20 Drug: levofloxacin IVPB 500 mg 100 ml IVPB once over 60 mins Volume: 100 ml; Route: ap3 IVPB; Infused Over: 60 mins; Site: right antecubital; 16:22 Follow up: IV Status: Completed infusion ap3 16:31 Drug: Ondansetron PO 4 mg PO once Route: PO; ap3 16:31 Follow up: Response: Medication administered at discharge. ap3 Disposition Summary: 02/18/24 15:54 Discharge Ordered Notes: Location: Home rn Problem: new rn Symptoms: have improved rn Condition: Stable rn Diagnosis - UTI/ Urinary tract infection, site not specified rn Followup: rn - With: Private Physician - When: As needed - Reason: Recheck today's complaints, Re-evaluation by your physician Discharge Instructions: - Discharge Summary Sheet rn - Urinary Tract Infection, Adult rn Forms: - Medication Reconciliation Form rn - Thank You Letter rn - Antibiotic morning news producer - Prescription Opioid Use rn - Patient Portal Instructions rn - Leadership Thank You Letter rn Prescriptions: - ondansetron 4 mg Oral Tablet,disintegrating - take 1 tablet ORAL route every 8 hours As needed; 10 tablet; Refills: 0, rn Product Selection Permitted - levofloxacin 500 mg Oral tablet - take 1 tablet ORAL route once daily for 7 days; 7 tablet; Refills: 0, Product rn Selection Permitted Signatures: Dispatcher [employer] EDMS Vijay Hills MD MD rn Prokisch, Amanda, RN RN ap3 Corrections: (The following items were deleted from the chart) 12: 12:29 CBC+H.LAB.BRZ ordered. EDMS EDMS 12: 12:29 COMPREHENSIVE METABOLIC PANEL+C.LAB.BRZ ordered. EDMS EDMS : 12:29 LIPASE+C.LAB.BRZ ordered. EDMS EDMS : 12:29 Urinalysis+U.LAB.BRZ ordered. EDMS EDMS 12: 12:29 Abdomen Pelvis W Con+CT.RAD.BRZ ordered. EDMS EDMS
--- NOTE | 2024-02-18 15:54 | ER ---
Nurse's Notes [facility] Name: Andreina Brock Age: 73 yrs Sex: Female : 1950 Arrival Date: 02/18/2024 Time: 12:01 Bed 11 Private MD: Diagnosis: UTI/ Urinary tract infection, site not specified Presentation: 02/17 12:27 Chief complaint: Patient states: she woke up this morning urinating brown urine and ap3 difficulty urinating. patient also reports nausea on ambulating that began this morning as well. Coronavirus screen: At this time, the client does not indicate any symptoms associated with coronavirus-19. Ebola Screen: No symptoms or risks identified at this time. Initial Sepsis Screen: Does the patient meet any 2 criteria? No. Patient's initial sepsis screen is negative. Does the patient have a suspected source of infection? No. Patient's initial sepsis screen is negative. Risk Assessment: Do you want to hurt yourself or someone else? Patient reports no desire to harm self or others. Onset of symptoms was February 18, 2024. 12:27 Method Of Arrival: Ambulatory ap3 12:27 Acuity: SILVANA 3 ap3 Triage Assessment: 12:30 General: Appears in no apparent distress. Behavior is calm, cooperative, appropriate ap3 for age. Pain: Denies pain. Neuro: Level of Consciousness is awake, alert, obeys commands, Oriented to person, place, time, situation. Cardiovascular: Patient's skin is warm and dry. Respiratory: Airway is patent Respiratory effort is even, unlabored, Respiratory pattern is regular, symmetrical. GI: Reports nausea. : Reports inability to void, brown urine. Historical: - Allergies: 12:29 Codeine; ap3 12:29 PENICILLINS; ap3 - Home Meds: 12:29 Skyrizi subcutaneous [Active]; ap3 - PMHx: 12:29 Arthritis; Diverticulitis; Crohn's disease; ap3 - Immunization history:: Client reports having NOT received the Covid vaccine. Flu vaccine is not up to date. - Infectious Disease History:: Denies. - Social history:: Smoking status: Patient denies any tobacco usage or history of. - Family history:: not pertinent. - Hospitalizations: : No recent hospitalization is reported. Screenin:30 Abuse screen: Denies threats or abuse. Nutritional screening: No deficits noted. ap3 Tuberculosis screening: No symptoms or risk factors identified. 16:14 [facility] ED Fall Risk Assessment (Adult) History of falling in the last 3 months, ap3 including since admission No falls in past 3 months (0 pts) Confusion or Disorientation No (0 pts) Intoxicated or Sedated No (0 pts) Impaired Gait No (0 pts) Mobility Assist Device Used No (0 pt) Altered Elimination No (0 pt) Score/Fall Risk Level 0 - 2 = Low Risk Oriented to surroundings, Maintained a safe environment, Educated pt \T\ family on fall prevention, incl call for assistance when getting out of bed, Assessed \T\ reinforced patient's understanding of fall precautions, Provided non-skid footwear, Hourly rounding (assess needs \T\ fall precautionary measures) done, Used ambulatory aids as needed (educated on \T\ assisted with), Used gait belt as appropriate. Assessment: 16:13 Reassessment: awaiting completion of antibiotics prior to discharge. ap3 Vital Signs: 12:27 BP 175 / 97; Pulse 74; Resp 17; Temp 98.6(O); Pulse Ox 100% ; Weight 71.21 kg; Height 4 ap3 ft. 11 in. ; 14:36 BP 143 / 77; Pulse 62; Resp 18; Pulse Ox 99% ; ap3 16:30 BP 140 / 71; Pulse 60; Resp 17; Temp 98.5; Pulse Ox 100% ; ap3 12:27 Body Mass Index 31.71 (71.21 kg, 149.86 cm) ap3 ED Course: 12:05 Patient arrived in ED. mg5 12:08 Vijay Hills MD is Attending Physician. rn 12:27 Kiana Villafana RN is Primary Nurse. ap3 12:29 Triage completed. ap3 12:31 Arm band placed on right wrist. ap3 12:31 Patient has correct armband on for positive identification. Bed in low position. Call ap3 light in reach. Side rails up X 1. Pulse ox on. NIBP on. 12:49 CBC with Diff Sent. bc6 12:49 CMP Sent. bc6 12:49 Lipase Sent. bc6 12:49 Urinalysis w/ reflexes Sent. bc6 12:50 Initial lab(s) drawn, by nm, sent to lab. Urine collected: clean catch specimen. bc6 Inserted saline lock: 22 gauge in right antecubital area, using aseptic technique. Blood collected. 13:00 Bladder scan completed. 22ml. Provider notified. ap3 13:33 CT Abd/Pelvis - IV Contrast Only In Process Unspecified. EDMS 16:13 No provider procedures requiring assistance completed. ap3 16:30 Provided Education on: discharge instructions. ap3 16:30 IV discontinued, intact, bleeding controlled, No redness/swelling at site. ap3 Administered Medications: 15:00 Not Given (Patient Refused): [id number] mg 200 ml IVPB once over 60 mins rn 15:20 Drug: levofloxacin IVPB 500 mg 100 ml IVPB once over 60 mins Volume: 100 ml; Route: ap3 IVPB; Infused Over: 60 mins; Site: right antecubital; 16:22 Follow up: IV Status: Completed infusion ap3 16:31 Drug: Ondansetron PO 4 mg PO once Route: PO; ap3 16:31 Follow up: Response: Medication administered at discharge. ap3 Medication: 16:14 VIS not applicable for this client. ap3 Outcome: 15:54 Discharge ordered by . rn 16:30 Discharged to home ambulatory, with family, ap3 16:30 Condition: good 16:30 Discharge instructions given to patient, Instructed on discharge instructions, follow up and referral plans. medication usage, Demonstrated understanding of instructions, follow-up care, medications, Prescriptions given X 2, 16:35 Patient left the ED. ap3 Signatures: Dispatcher [employer] EDMS Vijay Hills MD MD rn Prokisch, Amanda, RN RN ap3 [facility] Mims mg5
[2024-02-18] MEDS ORDERED: ONDANSETRON 4 MG (ODT) TAB ONE (16:25)
[2024-02-18 19:37] VITALS: BP 140/71; TEMP 98.5; O2SAT 100
== END 2024-02-18 16:35 | disposition home or self-care (01) ==
LOC: ER 12:01
DX: N39.0 Urinary tract infection, site not specified (principal); Z88.0 Allergy status to penicillin; Z88.5 Allergy status to narcotic agent; Z28.310 Unvaccinated for COVID-19
CPT/HCPCS: 96365; 85025; 81001; 36415; 83690; 80053; 74177; 99284; Q9967; Q0162; J0744

== ENCOUNTER 2024-04-07 18:47 | Emergency (ER) | payer MEDICARE ==
--- OUTSIDE RECORDS SUMMARY | 2024-04-07 18:53 | XMS REPORT | Continuity of Care Document ---
Author Name Unknown Address [address] [facility] [place] [address] [facility] Address [address] [facility] [place] [address] Care Team Providers Care Law Examiner Name Role Phone David Parra Attending Clinician Unavailable Manjinder Chow Attending Clinician Unavailable Basia Santillan Attending Clinician Jamil Johns Attending Clinician [place] Attending Clinician Unavailable Milagros Cintron Attending Clinician [phone] [place] Admitting Clinician Unavailable Payers Payer Name Policy Type Policy Number Effective Date Expirati on Date Source FORMERLY [facility] (MEDICARE REPLACEMENT HMO) [id number] 2023 00:00:00 Problems Condition Name Condition Details Condition Category Status Onset Date Resolution Date Last Treatment Date Treating Clinician Comments Source [id number] Gastro-eso phageal reflux disease with esophagiti s, without bleeding Problem [facility] [id number] Paresthesi a of skin Problem [facility] [id number] Pain, joint, knee, right Problem [facility] [id number] Ulcerative colitis with other complicati on, unspecifie d location Problem [facility] [id number] Gastric ulcer without hemorrhage or perforatio n, unspecifie d chronicity Problem [facility] [id number] Osteoarthr itis of multiple joints, unspecifie d osteoarthr itis type Problem [facility] Crohn's disease of large bowel Crohn's disease of colon with rectal bleeding Problem [facility] [id number] Gastro-eso phageal reflux disease without esophagiti s Problem [facility] [id number] 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 Problem [facility] [id number] Hypertrigl yceridemia Problem [facility] [id number] Unspecifie d internal derangemen t of right knee Problem [facility] [id number] Adnexal cyst Problem [facility] [id number] Body mass index [BMI] 33.0-33.9, adult Problem [facility] [id number] Sleep apnea in adult Problem [facility] [id number] Other obesity due to excess calories Problem [facility] Allergies, Adverse Reactions, Alerts Allergy Name Allergy Type Status Severity Reaction(s) Onset Date Inactive Date Treating Clinician Comments Source codeine codeine Active hives [facility] [id number] Drug allergy Active anaphylaxis [facility] Social History Social Habit Start Date Stop Date Quantity Comments Source History of Tobacco Use [facility] Sex Assigned At [facility] Smoking Status Start Date Stop Date Source Former Smoker 2024-02-28 00:00:00 2024-02-28 00:00:00 [facility] Never Smoker [facility] Medications Ordered Medication Name Filled Medication Name Start Date Stop Date Current Medication? Ordering Clinician Indication Dosage Frequency Signature (SIG) Comments Components Source Fluconazole 150 MG Fluconazole 150 MG 02-27 00:00: 00 No 2{table ts} Fluconazol e 150 MG Ibuprofen Ibuprofen Yes [place] not defined [facility] PredniSONE PredniSONE Yes [place] not defined [facility] Azithromyci n Azithromyci n Yes [place] not defined [facility] Toprol XL 50 MG Toprol XL [...] t} QD Pantoprazo le Sodium 40 MG levoFLOXaci n 500 MG levoFLOXaci n 500 MG No 1{table t} QD levoFLOXac in 500 MG Ondansetron 4 MG Ondansetron 4 MG No 1{table t_on_ e_tongu e_and_a llow_to _dissol ve} QD Ondansetro n 4 MG traMADol HCl 50 MG traMADol HCl 50 MG No 1{table t_as_ne eded} QD traMADol HCl 50 MG Toprol XL 50 MG Toprol XL [...] Name Observation Time Observation Value Comments S casie height 2024-02-28 13:00:00 58 [in_i] Commo n [facility] weight 2024-02-28 13:00:00 157.4 [lb_av] Co mmon [facility] temperature 2024-02-28 13:00:00 97.2 [degF] Com [facility] bmi 2024-02-28 13:00:00 32.89 kg/m2 Comm on [facility] oximetry 2024-02-28 13:00:00 97 % Commo n [facility] respiratory rate 2024-02-28 13:00:00 18 /min [facility] blood pressure systolic 2024-02-28 13:00:00 125 mm[Hg] [facility] blood pressure diastolic 2024-02-28 13:00:00 67 mm[Hg] [facility] height 2024-02-08 09:40:00 58 [in_i] Commo n [facility] weight 2024-02-08 09:40:00 159.0 [lb_av] Co mmon [facility] temperature 2024-02-08 09:40:00 97.3 [degF] Com [facility] bmi 2024-02-08 09:40:00 33.23 kg/m2 Comm on [facility] oximetry 2024-02-08 09:40:00 96 % Commo n [facility] respiratory rate 2024-02-08 09:40:00 18 /min [facility] blood pressure systolic 2024-02-08 09:40:00 120 mm[Hg] [facility] diastolic 2024-02-08 09:40:00 74 mm[Hg] Common [facility] height 2024-02-08 09:30:00 58 [in_i] Commo n [facility] weight 2024-02-08 09:30:00 159.0 [lb_av] Co on [facility] temperature 2024-02-08 09:30:00 97.3 [degF] Com [facility] bmi 2024-02-08 09:30:00 33.23 kg/m2 Comm on [facility] oximetry 2024-02-08 09:30:00 96 % Commo n [facility] respiratory rate 2024-02-08 09:30:00 18 /min Common [facility] blood pressure systolic 2024-02-08 09:30:00 120 mm[Hg] Common [facility] blood pressure diastolic 2024-02-08 09:30:00 74 mm[Hg] Common [facility] height 2023-10-14 16:00:00 58 [in_i] Commo n [facility] weight 2023-10-14 16:00:00 161.6 [lb_av] Co [facility] temperature 2023-10-14 16:00:00 97.4 [degF] Com [facility] bmi 2023-10-14 16:00:00 33.77 kg/m2 Comm on [facility] oximetry 2023-10-14 16:00:00 98 % Commo n [facility] blood pressure systolic 2023-10-14 16:00:00 138 mm[Hg] [facility] blood pressure diastolic 2023-10-14 16:00:00 80 mm[Hg] Common [facility] height 2023-08-10 08:50:00 58 [in_i] Commo n [facility] weight 2023-08-10 08:50:00 162.6 [lb_av] Co [facility] temperature 2023-08-10 08:50:00 97.3 [degF] Com mon [facility] bmi 2023-08-10 08:50:00 33.98 kg/m2 Comm on [facility] oximetry 2023-08-10 08:50:00 97 % Commo n [facility] respiratory rate 2023-08-10 08:50:00 18 /min Common [facility] blood pressure systolic 2023-08-10 08:50:00 123 mm[Hg] [facility] blood pressure diastolic 2023-08-10 08:50:00 64 mm[Hg] [facility] height 2023-07-06 15:10:00 58 [in_i] Commo n [facility] weight 2023-07-06 15:10:00 160.0 [lb_av] Co mmon [facility] temperature 2023-07-06 15:10:00 97.9 [degF] Com [facility] bmi 2023-07-06 15:10:00 33.44 kg/m2 Comm on [facility] oximetry 2023-07-06 15:10:00 97 % Commo n [facility] respiratory rate 2023-07-06 15:10:00 17 /min [facility] blood pressure systolic 2023-07-06 15:10:00 130 mm[Hg] [facility] blood pressure diastolic 2023-07-06 15:10:00 71 mm[Hg] [facility] height 2023-07-06 15:10:00 58 [in_i] Commo n [facility] weight 2023-07-06 15:10:00 160.0 [lb_av] Co mmon [facility] temperature 2023-07-06 15:10:00 97.9 [degF] Com [facility] bmi 2023-07-06 15:10:00 33.44 kg/m2 Comm on [facility] oximetry 2023-07-06 15:10:00 97 % Commo n [facility] respiratory rate 2023-07-06 15:10:00 17 /min [facility] blood pressure systolic 2023-07-06 15:10:00 130 mm[Hg] [facility] blood pressure diastolic 2023-07-06 15:10:00 71 mm[Hg] [facility] height 2023-06-14 08:40:00 58 [in_i] Commo n [facility] weight 2023-06-14 08:40:00 161.8 [lb_av] Co [facility] temperature 2023-06-14 08:40:00 97.9 [degF] Com mon [facility] bmi 2023-06-14 08:40:00 33.81 kg/m2 Comm on [facility] oximetry 2023-06-14 08:40:00 98 % Commo n [facility] respiratory rate 2023-06-14 08:40:00 18 /min [facility] blood pressure systolic 2023-06-14 08:40:00 135 mm[Hg] Common [facility] blood pressure diastolic 2023-06-14 08:40:00 63 mm[Hg] Common [facility] height 2023-05-25 15:10:00 58 [in_i] Commo n [facility] weight 2023-05-25 15:10:00 157 [lb_av] Comm on [facility] bmi 2023-05-25 15:10:00 32.81 kg/m2 Comm on [facility] height 2023-04-01 08:40:00 58 [in_i] Commo n [facility] weight 2023-04-01 08:40:00 156.8 [lb_av] Co mmon [facility] temperature 2023-04-01 08:40:00 97.5 [degF] Com mon [facility] bmi 2023-04-01 08:40:00 32.77 kg/m2 Comm on [facility] oximetry 2023-04-01 08:40:00 96 % Commo n [facility] respiratory rate 2023-04-01 08:40:00 17 /min [facility] blood pressure systolic 2023-04-01 08:40:00 118 mm[Hg] [facility] blood pressure diastolic 2023-04-01 08:40:00 65 mm[Hg] [facility] Encounters Start Date/Time End Date/Time Encounter Type Admission Type Attending [facility] Facility Care Department Encounter ID Source 2024-04-07 11:20:00 Outpatient Parra, David STLC STLC [id number] [facility] 2024-02-24 15:58:00 Outpatient Parra, David STLC STLMLC [id number] [facility] 2024-02-07 08:29:00 Outpatient Parra, David STLC STLMLC [id number] [facility] 2023-08-06 08:55:00 Outpatient Parra, David STLC STLMLC [id number] [facility] 2023-07-02 10:11:00 Outpatient Parra, David STLC STLMLC [id number] [facility] 2023-06-29 16:22:00 Outpatient Parra, David STLMLC STLMLC [id number] [facility] 2023-04-01 07:38:00 Outpatient Chow Avwillise STLC STLC [id number] [facility] 2023-03-09 13:55:00 Outpatient ChowWooe STLC STLC [id number] [facility] 2023-02-11 15:48:00 Outpatient STLMLC STLMLC [id number] [facility] 2023-02-09 13:29:00 Outpatient STLMLC STLMLC [id number] [facility] 2023-01-19 11:47:00 Outpatient STLMLC STLMLC [id number] [facility] 2024-03-03 14:00:00 2024-03-03 14:30:00 Annual D2Me Basia Tyrell [id number] [facility] 2024-02-29 00:00:00 2024-02-29 00:00:00 (TEL) STLMLC STLMLC [id number] [facility] 2024-02-28 00:00:00 2024-02-28 00:00:00 (TEL) STLMLC STLMLC [id number] [facility] 2024-02-28 00:00:00 2024-02-28 00:00:00 OFFICE VISIT ESTAB PT LEVEL 4 STLMLC STLMLC [id number] [facility] 2024-02-22 00:00:00 2024-02-22 00:00:00 (TEL) STLMLC STLMLC [id number] [facility] 2024-02-08 00:00:00 2024-02-08 00:00:00 SUB ANNUAL [facility] VISIT STLMLC STLMLC [id number] [facility] 2024-02-08 00:00:00 2024-02-08 00:00:00 OFFICE VISIT ESTAB PT LEVEL 4 STLMLC STLMLC [id number] [facility] 2024-02-08 00:00:00 2024-02-08 00:00:00 (TEL) STLMLC STLMLC [id number] [facility] 2023-10-21 00:00:00 2023-10-21 00:00:00 (TEL) STLMLC STLMLC [id number] [facility] 2023-10-18 00:00:00 2023-10-18 00:00:00 (TEL) STLMLC STLMLC [id number] [facility] 2023-10-14 00:00:00 2023-10-14 00:00:00 OFFICE VISIT ESTAB PT LEVEL 3 STLMLC STLMLC [id number] [facility] 2023-10-14 00:00:00 2023-10-14 00:00:00 (TEL) STLMLC STLMLC [id number] [facility] 2023-08-24 00:00:00 2023-08-24 00:00:00 (TEL) STLMLC STLMLC [id number] [facility] 2023-08-10 00:00:00 2023-08-10 00:00:00 OFFICE VISIT ESTAB PT LEVEL 4 STLMLC STLMLC [id number] [facility] 2023-08-10 00:00:00 2023-08-10 00:00:00 (TEL) STLMLC STLMLC [id number] [facility] 2023-08-06 00:00:00 2023-08-06 00:00:00 (TEL) STLMLC STLMLC [id number] [facility] 2023-07-06 00:00:00 2023-07-06 00:00:00 SUB ANNUAL [facility] VISIT STLMLC STLMLC [id number] [facility] 2023-07-06 00:00:00 2023-07-06 00:00:00 OFFICE VISIT ESTAB PT LEVEL 4 STLMLC STLMLC [id number] [facility] 2023-06-14 00:00:00 2023-06-14 00:00:00 OFFICE VISIT ESTAB PT LEVEL 3 STLMLC STLMLC [id number] [facility] 2023-06-09 00:00:00 2023-06-09 00:00:00 (TEL) STLMLC STLMLC [id number] [facility] 2023-05-28 00:00:00 2023-05-28 00:00:00 (TEL) STLMLC STLMLC [id number] [facility] 2023-05-25 00:00:00 2023-05-25 00:00:00 OFFICE VISIT ESTAB PT LEVEL 3 STLMLC STLMLC [id number] [facility] 2023-05-25 00:00:00 2023-05-25 00:00:00 (TEL) STLMLC STLMLC [id number] [facility] 2023-05-19 00:00:00 2023-05-19 00:00:00 (TEL) STLMLC STLMLC [id number] [facility] 2023-04-01 00:00:00 2023-04-01 00:00:00 OFFICE VISIT NEW PT LEVEL 3 STLMLC STLMLC [id number] [facility] 2023-03-19 11:30:00 2023-03-19 12:00:00 Care Coordinati on Non Billable Jamil Nat [id number]. [id number]. [id number] CAF [facility] 2023-03-12 00:00:00 2023-03-12 00:00:00 Outpatient V_Abdulaziz [facility] [id number] [facility] 2023-02-12 20:00:00 2023-02-12 21:00:00 CAV Milagros Cintron 2.16.840. [id number]. [id number] HYZ [facility] 2023-02-12 00:00:00 2023-02-12 00:00:00 Outpatient V_Valzulma [facility] [id number] [facility] 2022-12-31 00:00:00 2022-12-31 00:00:00 Outpatient DMG DMG [id number] [facility] 2019-04-25 14:30:00 2019-04-25 14:30:00 Outpatient [facility] [id number] [facility] Results Test Description Test Time Test Comments Results Result Co mments Source HEMOGLOBIN [id number] 00:00:00* Test Item Value Reference Range Interpretation Comme nts HEMOGLOBIN A1c (test code = 4548-4) 6.1 % See_Comment H [Automated [employer]] The system which generated this result transmitted reference range: 4.2-5.6 %. The reference range was not used to interpret this result as normal/abnormal. TSH REFLEX TO FREE [id number] 00:00:00* Test Item Value Reference Range Interpretation Comme nts TSH REFLEX TO FREE T4 (test code = 82100-1) 2.580 UIU/ML See_Comment [Automated [employer]] The system which generated this result transmitted [...] NEGATIVE NEGATIVE OCCULT BLOOD (test code = 28114-7) NEGATIVE NEGATIVE pH (test code = 5803-2) 5.0 5.0-9.0 PROTEIN (test code = 72412-4) NEGATIVE NEGATIVE SPECIFIC GRAVITY (test code = 5811-5) 1.030 1.005-1.035 UROBILINOGEN (test code = 68533-0) 0.2 MG/DL See_Comment [Automated [employer]] The system which generated this result transmitted reference range: <=2.0 MG/DL. The reference range was not used to interpret this result as normal/abnormal. LIPID PANEL WITH REFLEX DIRECT [id number] 00:00:00* Test Item Value Reference Range Interpretation Comme nts CALC LDL CHOL (test code = 18516-9) 77 MG/DL See_Comment [Automated messa ge] The [...] normal/abnormal. RISK RATIO LDL/HDL (test code = 54892-9) 1.35 RATIO See_Comment [Automated message] The system [...] interpret this result as normal/abnormal. COMPREHENSIVE METABOLIC [id number] 00:00:00* Test Item Value Reference Range Interpretation [...] result as normal/abnormal. CALCIUM (test code = 83868-8) 9.2 MG/DL See_Comment [Automated messa ge] The [...] as normal/abnormal. CALC GLOBULIN (test code = 33335-4) 1.9 G/DL See_Comment [Automated messa ge] The [...] normal/abnormal. eGFR (2020 CKD-EPI) (test code = 69150-6) 82 ML/MIN/1.73 See_Comment [Automated messa ge] The [...]
[2024-04-07 19:56] LABS: Absolute Eosinophils 0.2 K/uL (0-0.5); Absolute Monocytes 0.8 K/uL (0.1-1.3); Absolute Neutrophil 6.9 K/uL (1.8-8.0); Basophils % 0.5 % (0-1.3); Eosinophils % 1.9 % (0-4.4); Hematocrit 37.8 % (36.0-45.0); Hemoglobin 12.4 g/dL (12.0-15.0); Lymphocytes % 10.7 % (15.3-44.8); MCH 29.8 pg (27.0-35.0); MCHC 32.9 g/dL (32.0-36.0); MCV 90.7 fL (80-100); MPV 8.5 fL (7.6-11.3); Monocytes % 9.1 % (3.3-12.3); Neutrophils % 77.8 % (41.7-73.7); Platelets 248 thou/uL (152-406); RBC Red Blood Cell Count 4.17 M/uL (3.86-4.86); Red Cell Distribution Width 14.2 % (12.1-15.2)
[2024-04-07] MEDS ORDERED: ONDANSETRON 4 MG/2 ML VIAL ONE (20:06)
[2024-04-07] MEDS ORDERED: KETOROLAC 30 MG/ML INJ ONE (20:07)
[2024-04-07] MEDS ORDERED: NA CHLORIDE 0.9% 500 ML ONE (20:07)
[2024-04-07 20:17] LABS: Albumin 2.7 g/dL (3.4-5.0); Albumin/Globulin Ratio 0.7 (1.1-1.8); Anion Gap 7.8 mEq/L (5.0-15.0); Bilirubin Total 0.9 mg/dL (0.2-1.0); Globulin 4.1 g/dL (2.3-3.5); Potassium 3.8 mEq/L (3.5-5.1); Protein, Total 6.8 g/dL (6.4-8.2)
--- NOTE | 2024-04-07 21:27 | RAD REPORT ---
EXAM DESCRIPTION: CT - [facility] Protocol - 04/07/2024 8:47 pm CLINICAL HISTORY: back pain COMPARISON: Abdomen Pelvis W Contrast dated 02/18/2024; Abdomen Pelvis W Contrast dated 3; [facility] Protocol dated 10/03/2018; CT ABD PELVIS W CONTRAST dated 04/04/2008bdomen Pelvis W Contra st dated 02/18/2024; Abdomen Pelvis W Contrast dated 10/25/2023; [facility] Protocol dated 10/03/2018; CT ABD PELVIS W CONTRAST dated 04/04/2008 TECHNIQUE: Thin cut axial CT imaging of the abdomen and pelvis was performed without IV contrast. Mu ltiplanar reformats were generated and reviewed. All CT scans are performed using dose optimization technique as appropriate and may include automated exposure control or mA/KV adjustment according to patient size. FINDINGS: No suspicious findings in the lung bases. The liver, spleen, adrenal glands, and pancreas show no suspicious findings. Gallbladder and biliary tree are also without suspicious finding. Mildly hyperdense layering sludge in the gallbladder. Symmetric renal contour, without suspicious parenchymal findings within limits of noncontrast techniq ue. No evidence of radiopaque calculi or hydroureteronephrosis. No dilated bowel loops. Distal colonic diverticulosis. Progressive inflammatory fat stranding and davina rt segment wall thickening along the mid sigmoid colon, with trace fluid along the left pelvic sidewa ll. The fat stranding extends to the prominent left adnexal region which contains a dominant 3.6 cm c yst patient, likely stable limits of noncontrast evaluation. No appreciable extra colonic collection. Status post hysterectomy. Small umbilical hernia containing fat No suspicious mass or bulky lymphade nopathy. The urinary bladder is without significant finding. No suspicious bony findings. IMPRESSION: Progressive inflammatory fat stranding and short segment wall thickening of the mid sigm oid colon, progressive since the prior exam, suggesting worsening or current diverticulitis. No extra luminal gas or fluid collections to suggest an abscess. Fat stranding extends to the left adnexal structures, with a stable sized dominant cyst, that could p otentially be complicated.
[2024-04-07 22:02] LABS: Specific Gravity 1.024 (1.005-1.030); Sqamous Epithelial <5 /HPF (None Seen); Urine Bacteria <20 /HPF (<20); Urine Bilirubin NEGATIVE (Negative); Urine Blood 1+ (Negative); Urine Clarity Turbid (Clear); Urine Color Yellow (Yellow); Urine Culture Reflex Order NOT NEEDED; Urine Glucose NEGATIVE (Negative); Urine Ketones NEGATIVE (Negative); Urine Micro Reflex YN NO BILL MICROSCOPIC; Urine Mucus 3+ /HPF (None Seen); Urine Nitrite NEGATIVE (Negative); Urine Protein TRACE (Negative); Urine RBC <5 /HPF (None Seen); Urine Urobilinogen 1+ (Normal); Urine WBC <5 /HPF (<5); Urine pH 5.5 (5.0-7.0)
[2024-04-07] MEDS ORDERED: METRONIDAZOLE 500mg IVPB 500 MG/100 ML BAG IV ONE (22:03)
[2024-04-07] MEDS ORDERED: CEFTRIAXONE 2000 MG/VIAL ONE (22:39)
--- NOTE | 2024-04-07 22:44 | ER ---
Nurse's Notes [facility] Name: Andreina Brock Age: 73 yrs Sex: Female : 1950 Arrival Date: 04/07/2024 Time: 18:47 Bed 13 Private MD: David Parra Diagnosis: Diverticulitis of large intestine without perforation or abscess without bleeding Presentation: 04/07 18:57 Chief complaint: Patient states: lower back pain and burning/difficulty urinating. as6 Coronavirus screen: At this time, the client does not indicate any symptoms associated with coronavirus-19. Ebola Screen: No symptoms or risks identified at this time. Initial Sepsis Screen: Does the patient meet any 2 criteria? No. Patient's initial sepsis screen is negative. Does the patient have a suspected source of infection? No. Patient's initial sepsis screen is negative. Risk Assessment: Do you want to hurt yourself or someone else? Patient reports no desire to harm self or others. Onset of symptoms was April 04, 2024. 18:57 Method Of Arrival: Ambulatory as6 18:57 Acuity: SILVANA 3 as6 Historical: - Allergies: 19:00 Codeine; as6 19:00 PENICILLINS; as6 19:00 Cipro; as6 19:00 Metoprolol Tartrate; as6 - PMHx: 19:00 Arthritis; Crohn's Disease; Diverticulitis; as6 - PSHx: 19:00 Lithotripsy; Total abdominal hysterectomy; as6 - Immunization history:: Adult Immunizations up to date. - Infectious Disease History:: Denies. - Social history:: Smoking status: Patient/guardian denies using tobacco, the patient reports quitting approximately 13 years ago. Screenin:10 [facility] ED Fall Risk Assessment (Adult) History of falling in the last 3 months, lg3 including since admission No falls in past 3 months (0 pts) Confusion or Disorientation No (0 pts) Intoxicated or Sedated No (0 pts) Impaired Gait No (0 pts) Mobility Assist Device Used No (0 pt) Altered Elimination No (0 pt) Score/Fall Risk Level 0 - 2 = Low Risk Oriented to surroundings, Maintained a safe environment, Educated pt \T\ family on fall prevention, incl call for assistance when getting out of bed, Assessed \T\ reinforced patient's understanding of fall precautions. Abuse screen: Denies threats or abuse. Denies injuries from another. Nutritional screening: No deficits noted. Tuberculosis screening: No symptoms or risk factors identified. Assessment: 19:10 General: Appears in no apparent distress. uncomfortable, Behavior is calm, cooperative. lg3 Pain: Complains of pain in low back area. Neuro: No deficits noted. Chou Agitation-Sedation Scale (RASS): 0 - Alert and Calm Level of Consciousness is awake, alert, obeys commands, Oriented to person, place, time, situation. Cardiovascular: No deficits noted. Denies chest pain, shortness of breath, Capillary refill < 3 seconds Clubbing of nail beds is absent JVD is absent Patient's skin is warm and dry. Respiratory: No deficits noted. Airway is patent Respiratory effort is even, unlabored, Respiratory pattern is regular, symmetrical. GI: No deficits noted. Abdomen is round non-distended, obese, Bowel sounds present X 4 quads. Abd is soft and non tender X 4 quads. : Reports burning with urination, inability to void. EENT: No deficits noted. No signs and/or symptoms were reported regarding the EENT system. Derm: No deficits noted. No signs and/or symptoms reported regarding the dermatologic system. Skin is intact, is healthy with good turgor, Skin is dry, Skin is normal, Skin temperature is warm. Musculoskeletal: No deficits noted. Circulation, motion, and sensation intact. Range of motion: intact in all extremities, Reports pain in low back area. 21:53 Reassessment: Patient appears in no apparent distress at this time. No changes from lg3 previously documented assessment. Patient and/or family updated on plan of care and expected duration. Pain level reassessed. Patient is alert, oriented x 3, equal unlabored respirations, skin warm/dry/pink. Vital Signs: 18:57 BP 136 / 90; Pulse 88; Resp 18 S; Temp 99.3(TE); Pulse Ox 99% on R/A; Weight 68.95 kg as6 (R); Height 4 ft. 11 in. (R); Pain 10/10; 21:54 BP 134 / 86; Pulse 82; Resp 18 S; Pulse Ox 99% on R/A; lg3 18:57 Body Mass Index 30.70 (68.95 kg, 149.86 cm) as6 18:57 Pain Scale: Adult as6 ED Course: 18:51 Patient arrived in ED. rg4 18:51 David Parra DO is Private Physician. rg4 18:52 [facility] cp 18:52 Yuniel Jean MD is Attending Physician. cp 19:00 Triage completed. as6 19:01 Arm band placed on. as6 19:10 Patient has correct armband on for positive identification. Placed in gown. Bed in low lg3 position. Call light in reach. Side rails up X 1. Client placed on continuous cardiac and pulse oximetry monitoring. NIBP monitoring applied. Door closed. Noise minimized. Warm blanket given. Pillow given. Family accompanied patient. 19:23 Ebony Lau, RN is Primary Nurse. lg3 19:51 Inserted saline lock: 22 gauge in left wrist, using aseptic technique. Blood collected. lg3 19:51 Lipase Sent. lg3 19:51 CMP Sent. lg3 19:51 CBC with Diff Sent. lg3 19:51 Lactate w/ 2H reflex if indic. Sent. lg3 20:49 CT Stone Protocol In Process Unspecified. EDMS 21:54 Urinalysis W/Microscopic Sent. rv1 22:42 Gustavo Vega MD is Referral Physician. cp 22:59 No provider procedures requiring assistance completed. IV discontinued, intact, lg3 bleeding controlled, No redness/swelling at site. Pressure dressing applied. Administered Medications: 20:11 Drug: TORadol - Ketorolac IVP 15 mg IVP once Route: IVP; Site: left wrist; lg3 22:59 Follow up: Response: No adverse reaction lg3 20:11 Drug: Ondansetron IVP 4 mg IVP once; over 2 minutes Route: IVP; Site: left wrist; lg3 22:59 Follow up: Response: No adverse reaction lg3 20:11 Drug: NS 0.9% IV 500 ml IV at 500 ml/hr continuous Route: IV; Rate: 500 ml/hr; Site: lg3 left wrist; 22:59 Follow up: Response: No adverse reaction; IV Status: Completed infusion; IV Intake: lg3 500ml 22:19 Drug: metroNIDAZOLE IVPB 500 mg 100 ml IVPB once over 30 mins Volume: 100 ml; Route: lg3 IVPB; Infused Over: 30 mins; Site: left wrist; 22:58 Follow up: Response: No adverse reaction; IV Status: Completed infusion; IV Intake: lg3 100ml 22:48 Drug: Rocephin - Rocephin (cefTRIAXone) IVPB 2 grams IVPB once over 30 mins; (mix in lg3 100 mL NS) Route: IVPB; Infused Over: 30 mins; Site: left wrist; 22:58 Follow up: Response: No adverse reaction; IV Status: Completed infusion; IV Intake: [id number] Medication: 22:59 VIS not applicable for this client. lg3 Intake: 22:58 IV: 50ml; Total: 50ml. lg3 22:58 IV: 100ml; Total: 150ml. lg3 22:59 IV: 500ml; Total: 650ml. lg3 Outcome: 22:43 Discharge ordered by MD. cp 22:59 Discharged to home ambulatory, lg3 22:59 Condition: stable 22:59 Discharge instructions given to patient, Instructed on discharge instructions, follow up and referral plans. medication usage, Demonstrated understanding of instructions, follow-up care, medications, Prescriptions given X 1, 23:00 Patient left the ED. lg3 Signatures: Dispatcher [employer] EDMS Yuniel Edmond PA PA cp Garcia, Rubi rg4 Ebony Lau, RN RN lg3 Billy Bosch RN RN as6 Basia Abdi rv1
--- NOTE | 2024-04-07 22:44 | EDPHYS ---
Physician Documentation [facility] Name: Andreina Brock Age: 73 yrs Sex: Female : 1950 Arrival Date: 04/07/2024 Time: 18:47 Bed 13 Private MD: Fidel [facility] ED Physician Yuniel Jean HPI: 04/07 19:30 This 73 yrs old Female presents to ER via Ambulatory with complaints of Back Pain, cp Urinary Problem. 19:30 The patient presents with pain that is acute, with no known mechanism of injury. The cp symptoms are located in the low back. 19:30 Onset: The symptoms/episode began/occurred 3 day(s) ago. cp 19:30 Associated signs and symptoms: Pertinent positives: dysuria, urinary frequency, small cp amount urine. Severity of symptoms: in the emergency department the symptoms are unchanged, despite home interventions. Historical: - Allergies: 19:00 Codeine; as6 19:00 PENICILLINS; as6 19:00 Cipro; as6 19:00 Metoprolol Tartrate; as6 - PMHx: 19:00 Arthritis; Crohn's Disease; Diverticulitis; as6 - PSHx: 19:00 Lithotripsy; Total abdominal hysterectomy; as6 - Immunization history:: Adult Immunizations up to date. - Infectious Disease History:: Denies. - Social history:: Smoking status: Patient/guardian denies using tobacco, the patient reports quitting approximately 13 years ago. ROS: 19:35 Constitutional: Negative for body aches, chills, fever, poor PO intake, cp 19:35 Eyes: Negative for injury, pain, redness, and discharge, cp 19:35 Cardiovascular: Negative for chest pain, palpitations, 19:35 Respiratory: Negative for cough, shortness of breath, wheezing, 19:35 Abdomen/GI: Negative for vomiting, diarrhea, constipation, 19:35 Back: Positive for pain at rest, pain with movement, 19:35 : Positive for urinary symptoms, 19:35 Neuro: Positive for weakness, Negative for altered mental status, dizziness, headache, 19:35 All other systems are negative, Exam: 19:40 Constitutional: The patient appears in no acute distress, alert, awake, non-toxic, well cp developed, well nourished, uncomfortable, 19:40 Head/Face: Normocephalic, atraumatic. cp 19:40 Eyes: Periorbital structures: appear normal, Conjunctiva: normal, no exudate, no injection, Sclera: no appreciated abnormality, Lids and lashes: appear normal, bilaterally, 19:40 ENT: External ear(s): are unremarkable, Nose: is normal, Mouth: Lips: moist, Oral mucosa: pink and intact, moist, Posterior pharynx: is normal, airway is patent, no erythema, no exudate, 19:40 Chest/axilla: Inspection: normal, 19:40 Cardiovascular: Rate: normal, Rhythm: regular, 19:40 Respiratory: the patient does not display signs of respiratory distress, Respirations: normal, no use of accessory muscles, no retractions, Breath sounds: are clear throughout, no decreased breath sounds, no stridor, no wheezing, 19:40 Abdomen/GI: Inspection: abdomen appears normal, Bowel sounds: active, all quadrants, Palpation: soft, in all quadrants, mild abdominal tenderness, in the right lower quadrant and left lower quadrant, 19:40 Back: pain, that is moderate, of the low back area and mid back area, ROM is painful, with all movement, 19:40 Neuro: Orientation: to person, place \T\ time. Mentation: is normal, Motor: moves all fours, strength is normal, Sensation: is normal, Vital Signs: 18:57 BP 136 / 90; Pulse 88; Resp 18 S; Temp 99.3(TE); Pulse Ox 99% on R/A; Weight 68.95 kg as6 (R); Height 4 ft. 11 in. (R); Pain 10/10; 21:54 BP 134 / 86; Pulse 82; Resp 18 S; Pulse Ox 99% on R/A; lg3 18:57 Body Mass Index 30.70 (68.95 kg, 149.86 cm) as6 18:57 Pain Scale: Adult as6 MDM: 19:03 Patient medically screened. 22:42 Data reviewed: vital signs, nurses notes, lab test result(s), radiologic studies, CT cp scan, and as a result, I will discharge patient. 22:42 I considered the following discharge prescriptions or medication management in the emergency department Medications were administered in the Emergency Department. See MAR. Counseling: I had a detailed discussion with the patient and/or guardian regarding the historical points, exam findings, and any diagnostic results supporting the discharge/admit diagnosis, lab results, radiology results, the need for outpatient follow up, a general surgeon, a training specialist, to return to the emergency department if symptoms worsen or persist or if there are any questions or concerns that arise at home. Response to treatment: the patient's symptoms have markedly improved after treatment. ED course: VSS. Patient reports HX of persistent diverticulitis, has RX for Levaquin she wants to resume taking and to f/u with DR Jhaveri. 04/07 19:04 Order name: Urinalysis W/Microscopic; Complete Time: 22:10 cp 04/07 19:17 Order name: CBC with Diff; Complete Time: 20:16 cp 04/07 20:17 Interpretation: Normal except: SHYLA% 77.8; LYM% 10.7. cp 04/07 19:17 Order name: CMP; Complete Time: 20:29 cp 04/07 19:17 Order name: Lipase; Complete Time: 20:29 cp 04/07 19:17 Order name: Lactate w/ 2H reflex if indic.; Complete Time: 20:16 cp 04/07 20:30 Order name: CT Stone Protocol; Complete Time: 21:58 cp 04/07 19:17 Order name: IV Saline Lock; Complete Time: 19:51 cp 04/07 19:17 Order name: Labs collected and sent; Complete Time: 19:51 cp Administered Medications: 20:11 Drug: TORadol - Ketorolac IVP 15 mg IVP once Route: IVP; Site: left wrist; lg3 22:59 Follow up: Response: No adverse reaction lg3 20:11 Drug: Ondansetron IVP 4 mg IVP once; over 2 minutes Route: IVP; Site: left wrist; lg3 22:59 Follow up: Response: No adverse reaction lg3 20:11 Drug: NS 0.9% IV 500 ml IV at 500 ml/hr continuous Route: IV; Rate: 500 ml/hr; Site: lg3 left wrist; 22:59 Follow up: Response: No adverse reaction; IV Status: Completed infusion; IV Intake: lg3 500ml 22:19 Drug: metroNIDAZOLE IVPB 500 mg 100 ml IVPB once over 30 mins Volume: 100 ml; Route: lg3 IVPB; Infused Over: 30 mins; Site: left wrist; 22:58 Follow up: Response: No adverse reaction; IV Status: Completed infusion; IV Intake: lg3 100ml 22:48 Drug: Rocephin - Rocephin (cefTRIAXone) IVPB 2 grams IVPB once over 30 mins; (mix in lg3 100 mL NS) Route: IVPB; Infused Over: 30 mins; Site: left wrist; 22:58 Follow up: Response: No adverse reaction; IV Status: Completed infusion; IV Intake: [id number] Disposition Summary: 04/07/24 22:43 Discharge Ordered Notes: Location: Home cp Problem: an acute exacerbation cp Symptoms: have improved cp Condition: Stable cp Diagnosis - Diverticulitis of large intestine without perforation or abscess without bleeding cp Followup: cp - With: Gustavo Vega MD - When: 2 - 3 days - Reason: Recheck today's complaints Discharge Instructions: - Discharge Summary Sheet cp - High-Fiber Eating Plan cp - Diverticulitis cp Forms: - Medication Reconciliation Form cp - Antibiotic Education cp - Prescription Opioid Use cp - Patient Portal Instructions cp - Leadership Thank You Letter cp Prescriptions: - dicyclomine 20 mg Oral tablet - take 1 tablet ORAL route 4 times per day; 30 tablet; Refills: 0, Product cp Selection Permitted Signatures: Dispatcher [employer] EDNC Yuniel Edmond PA PA cp Able, Lacie RN RN lg3 Billy Bosch RN RN as6 Corrections: (The following items were deleted from the chart) 19:04 19:04 Urinalysis W/Microscopic+U.LAB.BRZ ordered. EDNC EDNC 04/08 22:59 22:57 Constitutional: The patient appears in no acute distress, alert, awake, cp non-toxic, well developed, well nourished, uncomfortable, cp
[2024-04-07 23:16] VITALS: BP 134/86; TEMP 99.3; O2SAT 99
== END 2024-04-07 23:00 | disposition home or self-care (01) ==
LOC: ER 18:47
DX: K57.32 Diverticulitis of large intestine without perforation or abscess without bleeding (principal)
CPT/HCPCS: 96365; 96361; 85025; 81001; 36415; 83605; 83690; 80053; 76377; 74176; 96375; 99284; J2405; J0696; J7040

== ENCOUNTER 2024-04-10 02:58 | Inpatient (IN) | payer MEDICARE ==
--- OUTSIDE RECORDS SUMMARY | 2024-04-10 03:02 | XMS REPORT | Continuity of Care Document ---
Author Name Unknown Address [address] [facility] [address] [place] [address] [facility] Address [address] [facility] [address] [place] [address] Care Team Providers Care Dolly Driver Name Role Phone David Parra Attending Clinician Unavailable Manjinder Chow Attending Clinician Unavailable Basia Santillan Attending Clinician Jamil Johns Attending Clinician [place] Attending Clinician Unavailable Milagros Cintron Attending Clinician [place] Admitting Clinician Unavailable Payers Payer Name Policy Type Policy Number Effective Date Expirati on Date Source [facility] (MEDICARE REPLACEMENT HMO) [id number] 2023 00:00:00 Problems Condition Name Condition Details Condition Category Status Onset Date Resolution Date Last Treatment Date Treating Clinician Comments Source [id number] Gastro-eso phageal reflux disease with esophagiti s, without bleeding Problem [facility] [id number] Paresthesi a of skin Problem [facility] [id number] Pain, joint, knee, right Problem [facility] [id number] Ulcerative colitis with other complicati on, unspecifie d location Problem [facility] [id number] Gastric ulcer without hemorrhage or perforatio n, unspecifie d chronicity Problem [facility] [id number] Osteoarthr itis of multiple joints, unspecifie d osteoarthr itis type Problem [facility] Crohn's disease of large bowel Crohn's disease of colon with rectal bleeding Problem [facility] [id number] Gastro-eso phageal reflux disease without esophagiti s Problem [facility] [id number] 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 Problem [facility] [id number] Hypertrigl yceridemia Problem [facility] [id number] Unspecifie d internal derangemen t of right knee Problem [facility] [id number] Adnexal cyst Problem [facility] [id number] Body mass index [BMI] 33.0-33.9, adult Problem [facility] [id number] Sleep apnea in adult Problem [facility] [id number] Other obesity due to excess calories Problem [facility] Allergies, Adverse Reactions, Alerts Allergy Name Allergy Type Status Severity Reaction(s) Onset Date Inactive Date Treating Clinician Comments Source codeine codeine Active hives [facility] [id number] Drug allergy Active anaphylaxis [facility] Social History Social Habit Start Date Stop Date Quantity Comments Source History of Tobacco Use [facility] Sex Assigned At [facility] Smoking Status Start Date Stop Date Source Former Smoker 2024-02-28 00:00:00 2024-02-28 00:00:00 [facility] Never Smoker [facility] Medications Ordered Medication Name Filled Medication Name Start Date Stop Date Current Medication? Ordering Clinician Indication Dosage Frequency Signature (SIG) Comments Components Source Fluconazole 150 MG Fluconazole 150 MG 02-27 00:00: 00 No 2{table ts} Fluconazol e 150 MG Toprol XL 50 MG Toprol XL [...] 4 MG Ondansetron 4 MG No 1{table t_ e_davidu e_and_a llow_to _dissol ve} QD Ondansetro n 4 MG traMADol HCl 50 MG traMADol HCl 50 MG No 1{table t_as_ne eded} QD traMADol HCl 50 MG Vital Signs Vital Name Observation Time Observation Value Comments S casie height 2024-02-28 13:00:00 58 [in_i] Commo n [facility] weight 2024-02-28 13:00:00 157.4 [lb_av] Co [facility] temperature 2024-02-28 13:00:00 97.2 [degF] Com [facility] bmi 2024-02-28 13:00:00 32.89 kg/m2 Comm on [facility] oximetry 2024-02-28 13:00:00 97 % Commo n [facility] respiratory rate 2024-02-28 13:00:00 18 /min [facility] blood pressure systolic 2024-02-28 13:00:00 125 mm[Hg] [facility] blood pressure diastolic 2024-02-28 13:00:00 67 mm[Hg] [facility] height 2024-02-08 09:40:00 58 [in_i] Commo n [facility] weight 2024-02-08 09:40:00 159.0 [lb_av] Co [facility] temperature 2024-02-08 09:40:00 97.3 [degF] Com [facility] bmi 2024-02-08 09:40:00 33.23 kg/m2 Comm on [facility] oximetry 2024-02-08 09:40:00 96 % Commo n [facility] respiratory rate 2024-02-08 09:40:00 18 /min Common [facility] blood pressure systolic 2024-02-08 09:40:00 120 mm[Hg[facility] blood pressure diastolic 2024-02-08 09:40:00 74 mm[Hg] [facility] height 2024-02-08 09:30:00 58 [in_i] Commo n [facility] weight 2024-02-08 09:30:00 159.0 [lb_av] Co [facility] temperature 2024-02-08 09:30:00 97.3 [degF] Com [facility] bmi 2024-02-08 09:30:00 33.23 kg/m2 Comm on [facility] oximetry 2024-02-08 09:30:00 96 % Commo n [facility] respiratory rate 2024-02-08 09:30:00 18 /min [facility] blood pressure systolic 2024-02-08 09:30:00 120 mm[Hg] [facility] blood pressure diastolic 2024-02-08 09:30:00 74 mm[Hg] Common [facility] height 2023-10-14 16:00:00 58 [in_i] Commo n [facility] weight 2023-10-14 16:00:00 161.6 [lb_av] Co on [facility] temperature 2023-10-14 16:00:00 97.4 [degF] Com mon [facility] bmi 2023-10-14 16:00:00 33.77 kg/m2 Comm on [facility] oximetry 2023-10-14 16:00:00 98 % Commo n [facility] blood pressure systolic 2023-10-14 16:00:00 138 mm[Hg] [facility] blood pressure diastolic 2023-10-14 16:00:00 80 mm[Hg] Common [facility] height 2023-08-10 08:50:00 58 [in_i] Commo n [facility] weight 2023-08-10 08:50:00 162.6 [lb_av] Co [facility] temperature 2023-08-10 08:50:00 97.3 [degF] Com [facility] bmi 2023-08-10 08:50:00 33.98 kg/m2 Comm on [facility] oximetry 2023-08-10 08:50:00 97 % Commo n [facility] respiratory rate 2023-08-10 08:50:00 18 /min [facility] blood pressure systolic 2023-08-10 08:50:00 123 mm[Hg] Common [facility] blood pressure diastolic 2023-08-10 08:50:00 64 mm[Hg] [facility] height 2023-07-06 15:10:00 58 [in_i] Commo n [facility] weight 2023-07-06 15:10:00 160.0 [lb_av] Co [facility] temperature 2023-07-06 15:10:00 97.9 [degF] Com [facility] bmi 2023-07-06 15:10:00 33.44 kg/m2 Comm on [facility] oximetry 2023-07-06 15:10:00 97 % Commo n [facility] respiratory rate 2023-07-06 15:10:00 17 /min [facility] blood pressure systolic 2023-07-06 15:10:00 130 mm[Hg] [facility] blood pressure diastolic 2023-07-06 15:10:00 71 mm[Hg] Common [facility] height 2023-07-06 15:10:00 58 [in_i] Commo n [facility] weight 2023-07-06 15:10:00 160.0 [lb_av] Co mmon [facility] temperature 2023-07-06 15:10:00 97.9 [degF] Com [facility] bmi 2023-07-06 15:10:00 33.44 kg/m2 Comm on [facility] oximetry 2023-07-06 15:10:00 97 % Commo n [facility] respiratory rate 2023-07-06 15:10:00 17 /min Common [facility] blood pressure systolic 2023-07-06 15:10:00 130 mm[Hg] Common [facility] blood pressure diastolic 2023-07-06 15:10:00 71 mm[Hg] Common [facility] height 2023-06-14 08:40:00 58 [in_i] Commo n [facility] weight 2023-06-14 08:40:00 161.8 [lb_av] Co on [facility] temperature 2023-06-14 08:40:00 97.9 [degF] Com [facility] bmi 2023-06-14 08:40:00 33.81 kg/m2 Comm on [facility] oximetry 2023-06-14 08:40:00 98 % Commo n [facility] respiratory rate 2023-06-14 08:40:00 18 /min Common [facility] blood pressure systolic 2023-06-14 08:40:00 135 mm[Hg] Common Spiri t [facility] blood pressure diastolic 2023-06-14 08:40:00 63 mm[Hg] [facility] height 2023-05-25 15:10:00 58 [in_i] Commo n [facility] weight 2023-05-25 15:10:00 157 [lb_av] Comm on [facility] bmi 2023-05-25 15:10:00 32.81 kg/m2 Comm on [facility] height 2023-04-01 08:40:00 58 [in_i] Commo n [facility] weight 2023-04-01 08:40:00 156.8 [lb_av] Co mmon [facility] temperature 2023-04-01 08:40:00 97.5 [degF] Com mon [facility] bmi 2023-04-01 08:40:00 32.77 kg/m2 Comm on [facility] oximetry 2023-04-01 08:40:00 96 % Commo n [facility] respiratory rate 2023-04-01 08:40:00 17 /min [facility] blood pressure systolic 2023-04-01 08:40:00 118 mm[Hg] [facility] blood pressure diastolic 2023-04-01 08:40:00 65 mm[Hg] [facility] Encounters Start Date/Time End Date/Time Encounter Type Admission Type Attending Clinicians Care Facility Care Department Encounter ID Source 2024-04-07 11:20:00 Outpatient Parra, [facility] [id number] [facility] 2024-02-24 15:58:00 Outpatient Parra, [facility] [id number] [facility] 2024-02-07 08:29:00 [facility] [id number] [facility] 2023-08-06 08:55:00 [facility] [id number] [facility] 2023-07-02 10:11:00 [facility] [id number] [facility] 2023-06-29 16:22:00 [facility] [id number] [facility] 2023-04-01 07:38:00 Outpatient Manjinder Chow [facility] [id number] [facility] 2023-03-09 13:55:00 Outpatient Manjinder Chow [facility] [id number] [facility] 2023-02-11 15:48:00 Outpatient [facility] [id number] [facility] 2023-02-09 13:29:00 Outpatient [facility] [id number] [facility] 2023-01-19 11:47:00 Outpatient [facility] [id number] [facility] 2024-04-07 00:00:00 2024-04-07 00:00:00 (TEL) [facility] [id number] [facility] 2024-03-03 14:00:00 2024-03-03 14:30:00 Annual D2Me Basia Santillan [id number] [facility] 2024-02-29 00:00:00 2024-02-29 00:00:00 (TEL) [facility] [id number] [facility] 2024-02-28 00:00:00 2024-02-28 00:00:00 (TEL) [facility] [id number] [facility] 2024-02-28 00:00:00 2024-02-28 00:00:00 OFFICE VISIT ESTAB PT LEVEL 4 [facility] [id number] [facility] 2024-02-22 00:00:00 2024-02-22 00:00:00 (TEL) [facility] [id number] [facility] 2024-02-08 00:00:00 2024-02-08 00:00:00 SUB ANNUAL MCR WELLNESS VISIT [facility] [id number] [facility] 2024-02-08 00:00:00 2024-02-08 00:00:00 OFFICE VISIT ESTAB PT LEVEL 4 [facility] [id number] [facility] 2024-02-08 00:00:00 2024-02-08 00:00:00 (TEL) [facility] [id number] [facility] 2023-10-21 00:00:00 2023-10-21 00:00:00 (TEL) [facility]C [facility] [id number] [facility] 2023-10-18 00:00:00 2023-10-18 00:00:00 (TEL) [facility] [id number] [facility] 2023-10-14 00:00:00 2023-10-14 00:00:00 OFFICE VISIT ESTAB PT LEVEL 3 [facility] [id number] [facility] 2023-10-14 00:00:00 2023-10-14 00:00:00 (TEL) [facility]C [facility] [id number] [facility] 2023-08-24 00:00:00 2023-08-24 00:00:00 (TEL) [facility] [id number] [facility] 2023-08-10 00:00:00 2023-08-10 00:00:00 OFFICE VISIT ESTAB PT LEVEL 4 [facility] [id number] [facility] 2023-08-10 00:00:00 2023-08-10 00:00:00 (TEL) [facility]C [facility] [id number] [facility] 2023-08-06 00:00:00 2023-08-06 00:00:00 (TEL) [facility] [id number] [facility] 2023-07-06 00:00:00 2023-07-06 00:00:00 SUB ANNUAL MCR WELLNESS VISIT [facility] [id number] [facility] 2023-07-06 00:00:00 2023-07-06 00:00:00 OFFICE VISIT ESTAB PT LEVEL 4 [facility] [id number] [facility] 2023-06-14 00:00:00 2023-06-14 00:00:00 OFFICE VISIT ESTAB PT LEVEL 3 [facility] [id number] [facility] 2023-06-09 00:00:00 2023-06-09 00:00:00 (TEL) [facility] [id number] [facility] 2023-05-28 00:00:00 2023-05-28 00:00:00 (TEL) [facility] [id number] [facility] 2023-05-25 00:00:00 2023-05-25 00:00:00 OFFICE VISIT ESTAB PT LEVEL 3 [facility] [id number] [facility] 2023-05-25 00:00:00 2023-05-25 00:00:00 (TEL) [facility] [id number] [facility] 2023-05-19 00:00:00 2023-05-19 00:00:00 (TEL) [facility] [id number] [facility] 2023-04-01 00:00:00 2023-04-01 00:00:00 OFFICE VISIT NEW PT LEVEL 3 [facility] [id number] [facility] 2023-03-19 11:30:00 2023-03-19 12:00:00 Care Coordinati on Non Billable Jamil Johns [id number]. [id number]. [id number] [facility] 2023-03-12 00:00:00 2023-03-12 00:00:00 Outpatient Paloma HENRIQUEZ DM [id number] [facility] 2023-02-12 20:00:00 2023-02-12 21:00:00 CAV Milagros Cintron [id number]. [id number]. [id number] [id number] [facility] 2023-02-12 00:00:00 2023-02-12 00:00:00 Outpatient V_Abdulaziz [facility] [id number] [facility] 2022-12-31 00:00:00 2022-12-31 00:00:00 Outpatient [facility] [id number] [facility] 2019-04-25 14:30:00 2019-04-25 14:30:00 Outpatient [facility] [id number] [facility] Results Test Description Test Time Test Comments Results Result Co mments Source HEMOGLOBIN [id number] 00:00:00* Test Item Value Reference Range Interpretation Comme nts HEMOGLOBIN A1c (test code = 4548-4) 6.1 % See_Comment H [Automated [employer]] The system which generated this result transmitted reference range: 4.2-5.6 %. The reference range was not used to interpret this result as normal/abnormal. TSH REFLEX TO FREE [id number] 00:00:00* Test Item Value Reference Range Interpretation Comme nts TSH REFLEX TO FREE T4 (test code = 20546-1) 2.580 UIU/ML See_Comment [Automated [employer]] The system which generated this result transmitted [...] NEGATIVE NEGATIVE OCCULT BLOOD (test code = 48679-5) NEGATIVE NEGATIVE pH (test code = 5803-2) 5.0 5.0-9.0 PROTEIN (test code = 29948-4) NEGATIVE NEGATIVE SPECIFIC GRAVITY (test code = 5811-5) 1.030 1.005-1.035 UROBILINOGEN (test code = 88317-2) 0.2 MG/DL See_Comment [Automated messa ge] The system which generated this result transmitted reference range: <=2.0 MG/DL. The reference range was not used to interpret this result as normal/abnormal. LIPID PANEL WITH REFLEX DIRECT [id number] 00:00:00* Test Item Value Reference Range Interpretation Comme nts CALC LDL CHOL (test code = 85985-7) 77 MG/DL See_Comment [Automated messa ge] The [...] code = 2085-9) 57 MG/DL See_Comment [Automated Fanboutsa ge] The system which generated this result transmitted reference range: >39 MG/DL. The reference range was not used to interpret this result as normal/abnormal. RISK RATIO LDL/HDL (test code = 28061-8) 1.35 RATIO See_Comment [Automated message] The system [...] interpret this result as normal/abnormal. COMPREHENSIVE METABOLIC [id number] 00:00:00* Test Item Value Reference Range Interpretation [...] result as normal/abnormal. CALCIUM (test code = 54653-0) 9.2 MG/DL See_Comment [Automated messa ge] The [...] as normal/abnormal. CALC GLOBULIN (test code = 66911-6) 1.9 G/DL See_Comment [Automated messa ge] The [...] normal/abnormal. eGFR (2020 CKD-EPI) (test code = 91058-4) 82 ML/MIN/1.73 See_Comment [Automated messa ge] The [...]
[2024-04-10 05:16] LABS: Absolute Eosinophils 0.1 K/uL (0-0.5); Absolute Lymphocytes (CBC) 0.5 K/uL (0.7-4.9); Absolute Monocytes 0.5 K/uL (0.1-1.3); Absolute Neutrophil 9.6 K/uL (1.8-8.0); Basophils % 0.2 % (0-1.3); Eosinophils % 0.5 % (0-4.4); Hematocrit 36.6 % (36.0-45.0); Hemoglobin 12.5 g/dL (12.0-15.0); Lymphocytes % 4.6 % (15.3-44.8); MCH 30.7 pg (27.0-35.0); MCHC 34.1 g/dL (32.0-36.0); MCV 89.9 fL (80-100); MPV 8.3 fL (7.6-11.3); Monocytes % 4.7 % (3.3-12.3); Nucleated Red Blood Cells % 0.1 % (0-0); Platelets 252 thou/uL (152-406); RBC Red Blood Cell Count 4.08 M/uL (3.86-4.86); Red Cell Distribution Width 13.8 % (12.1-15.2)
[2024-04-10 05:28] LABS: Albumin 2.7 g/dL (3.4-5.0); Albumin/Globulin Ratio 0.6 (1.1-1.8); Anion Gap 11.3 mEq/L (5.0-15.0); Bilirubin Total 0.9 mg/dL (0.2-1.0); Globulin 4.3 g/dL (2.3-3.5); Potassium 3.3 mEq/L (3.5-5.1)
[2024-04-10] MEDS ORDERED: ONDANSETRON 4 MG/2 ML VIAL ONE (05:28)
[2024-04-10] MEDS ORDERED: NA CHLORIDE 0.9% 50 ML ONE (05:28)
[2024-04-10] MEDS ORDERED: CEFTRIAXONE 2000 MG/VIAL ONE (05:28)
[2024-04-10] MEDS ORDERED: MORPHINE 4 MG/ML SYR ONE (05:28)
[2024-04-10] MEDS ORDERED: METRONIDAZOLE 500mg IVPB 500 MG/100 ML BAG IV ONE (05:29)
[2024-04-10] MEDS ORDERED: NA CHLORIDE 0.9% 1,000 ML ONE (05:29)
[2024-04-10 05:57] LABS: Band Neutrophils 35 % (0-1); Blood Morphology Comment NOT SEEN (NOT SEEN); Differential Total Cells Count 100; Eosinophils 2 % (0-3); Lymphocytes 8 % (15-42); Monocytes 1 % (0-10); Platelet Estimate ADEQ; Reactive Lymphocytes 5 %; Segmented Neutrophils 49 % (40-80)
[2024-04-10 07:02] LABS: PT Prothrombin Time 14.9 SECONDS (9.5-12.5); PTT, Activated Partial Thromb 27.9 SECONDS (24.3-36.9); Protime INR 1.37
--- NOTE | 2024-04-10 07:47 | RAD REPORT ---
EXAM DESCRIPTION: CTAbdomen Pelvis W Contrast - 04/10/2024 6:56 am CLINICAL HISTORY: Abdominal pain. ABD PAIN COMPARISON: Abdomen Pelvis W Contrast dated 02/18/2024; Abdomen Pelvis W Contrast dated 3; CT ABD PELVIS W CONTRAST dated 04/04/2008 TECHNIQUE: CT imaging of the abdomen and pelvis was performed with 100 ml non-ionic IV contrast. All CT scans are performed using dose optimization technique as appropriate and may include automated exposure control or mA/KV adjustment according to patient size. FINDINGS: The lung bases are clear.Small hiatal hernia. Mild fatty liver is present. Multiple small low-density lesions are present, too small to fully randee cterize but favored to be benign. The spleen, pancreas, adrenal glands kidneys are within normal limi ts. Irregular thickening of the sigmoid colon again seen were multiple diverticular present. Several roun ded left adnexal cystic appearing lesions are again seen appearing increased in size since comparativ e study. The left ovary appears enlarged measuring 6.0 x 5.2 cm. There is ruba-qx-iikjhomw inflammati on seen in the left lower quadrant of the pelvis. Small fat containing umbilical hernia. Prominent ap pendix, unchanged. No evidence of significant lymphadenopathy. No suspicious bony findings. IMPRESSION: Multiple cystic lesions are present in the left adnexa/ left ovary with size increase si nce 02/18/2024. Mild surrounding inflammation is also seen in the left adnexal region as well as ginger cent sigmoid colon where numerous diverticula are present. The findings would raise concern for possi ble left ovarian cystic mass or neoplasia. Consider direct visualization with laparoscopy for followu p.
--- NOTE | 2024-04-10 09:04 | RAD REPORT ---
EXAM DESCRIPTION: US - Transvaginal Study Probe - 04/10/2024 8:55 am CLINICAL HISTORY: abd bolton, L ovarian mass, cysts Pelvic pain. COMPARISON: Abdomen Pelvis W Contrast dated 04/10/2024 FINDINGS: Uterus is absent. Right ovary not visualized due to atrophy or superimposed bowel gas. Left ovary is enlarged measuring 3.5 x 3.1 cm with multiple cystic irregular-shaped lesions noted. No rmal arterial and venous flow is seen. No significant pelvic ascites. IMPRESSION: Enlarged left ovary with multiple irregularly-shaped cystic lesions present. No evidence of ovarian torsion.In this age group, ovarian neoplasia would be the diagnosis of concern.
--- NOTE | 2024-04-10 09:12 | EDPHYS ---
Physician Documentation [facility] Name: Andreina Brock Age: 73 yrs Sex: Female : 1950 Arrival Date: 04/10/2024 Time: 02:58 Bed 6 Private MD: ED Physician Yovanny Stovall HPI: 04/10 05:42 This 73 yrs old Female presents to ER via Wheelchair with complaints of Fever, rt Nausea/Vomiting. 05:42 Patient was seen in the ED on Wednesday, diagnosed with diverticulitis, admission was rt recommended at that time, but, the patient stated that she wanted to go home. The patient states that her symptoms have worsened, she is unable to tolerate food by mouth. Denies other acute complaints at this time, symptoms are moderate in severity, no other aggravating or alleviating factors.. Historical: - Allergies: 03:23 Cipro; vc1 03:23 Codeine; vc1 03:23 Metoprolol Tartrate; vc1 03:23 PENICILLINS; vc1 - PMHx: 03:23 Arthritis; Crohn's Disease; Diverticulitis; ulcerative colitis (Diverticulitis); vc1 - PSHx: 03:23 Lithotripsy; Total abdominal hysterectomy; vc1 - Immunization history:: Client reports having NOT received the Covid vaccine. Pneumococcal vaccine is not up to date. - Infectious Disease History:: Denies. - Social history:: Smoking status: Patient/guardian denies using tobacco, but has a distant history of tobacco abuse. - Family history:: not pertinent. ROS: 05:42 Constitutional: Negative for fever, chills, and weight loss, Cardiovascular: Negative rt for chest pain, palpitations, and edema, Respiratory: Negative for shortness of breath, cough, wheezing, and pleuritic chest pain, MS/Extremity: Negative for injury and deformity, Skin: Negative for injury, rash, and discoloration, Neuro: Negative for headache, weakness, numbness, tingling, and seizure, Psych: Negative for depression, anxiety, suicide ideation, homicidal ideation, and hallucinations, 05:42 Abdomen/GI: Positive for abdominal pain, nausea and vomiting, Exam: 05:42 Constitutional: This is a well developed, well nourished patient who is awake, alert, rt and in no acute distress. Head/Face: Normocephalic, atraumatic. Chest/axilla: Normal chest wall appearance and motion. Nontender with no deformity. No lesions are appreciated. Cardiovascular: Regular rate and rhythm with a normal S1 and S2. No gallops, murmurs, or rubs. Normal PMI, no JVD. No pulse deficits. Respiratory: Lungs have equal breath sounds bilaterally, clear to auscultation and percussion. No rales, rhonchi or wheezes noted. No increased work of breathing, no retractions or nasal flaring. Skin: Warm, dry with normal turgor. Normal color with no rashes, no lesions, and no evidence of cellulitis. MS/ Extremity: Pulses equal, no cyanosis. Neurovascular intact. Full, normal range of motion. Neuro: Awake and alert, GCS 15, oriented to person, place, time, and situation. Cranial nerves II-XII grossly intact. Motor strength 5/5 in all extremities. Sensory grossly intact. Cerebellar exam normal. Normal gait. 05:42 Abdomen/GI: Tenderness to the left lower quadrant with guarding, no rebound, distention, 06:47 ECG was reviewed by the Attending Physician. rt Vital Signs: 03:21 Weight 68.95 kg; Height 4 ft. 11 in. ; Pain 10/10; vc1 03:28 BP 104 / 58; Pulse 83; Resp 15; Temp 98.4; Pulse Ox 94% on R/A; vc1 06:10 BP 94 / 60; Pulse 73; Resp 16; Pulse Ox 95% on R/A; lg3 08:01 BP 114 / 66; Pulse 75; Resp 16; Pulse Ox 95% ; ko1 03:21 Body Mass Index 30.70 (68.95 kg, 149.86 cm) vc1 03:21 Pain Scale: Adult vc1 MDM: 04:35 Patient medically screened. rt 07:21 Data reviewed: vital signs. ED course: Patient signed out to me by previous physician, zoe in brief patient arrives today for present abdominal pain in the setting of recent diverticulitis diagnosis. Patient was given ceftriaxone and Rocephin. Lab work independently reviewed and interpreted by me, shows reassuring CBC without marked leukocytosis, lactic that is within normal ranges, metabolic profile shows slight hypokalemia with potassium of 3.3. Lipase is within appropriate ranges. CT abdomen pelvis pending. . ED course: Plan is follow-up CT imaging and admit the patient for failed outpatient therapy.. 07:58 ED course: CT of the abdomen pelvis shows cystic lesions in the left adnexa that were ec2 previously present in February however increased. Also noted to have diverticulosis as well as surrounding inflammation. Will obtain dedicated ultrasound . 08:00 ED course: External records reviewed by me, shows patient with a recent CT abdomen ec2 pelvis that showed diverticulitis along with fat stranding around the left adnexa with a large ovarian cyst. . 09:10 ED course: Ultrasound shows multiple cystic lesions on the ovary, no evidence of ec2 torsion, concern for possible neoplasm. Patient to follow-up outpatient expectantly with gynecology for this. Patient does not require emergent transfer for this. CT imaging with diverticulosis as well as surrounding inflammation, suspect diverticulitis that has not improved with outpatient therapy. Will admit for IV antibiotics for . 16:56 ED course: MDM: Differential diagnosis as documented above in ED course; All lab tests ec2 ordered and reviewed as documented above; Parenteral controlled substances: Yes; External records reviewed: Previous ED visit and associated lab work; I discussed the case with: Hospitalist . 04/10 04:43 Order name: CBC with Diff; Complete Time: 05:58 rt 04/10 04:43 Order name: CMP; Complete Time: 05:58 rt 04/10 04:43 Order name: Lipase; Complete Time: 05:58 rt 04/10 05:20 Order name: Manual Differential; Complete Time: 05:58 EDMS 04/10 05:59 Order name: Blood Culture Adult (2) rt 04/10 05:59 Order name: Lactate w/ 2H reflex if indic.; Complete Time: 07:20 rt 04/10 05:59 Order name: Protime (+inr); Complete Time: 07:06 rt 04/10 05:59 Order name: Ptt, Activated; Complete Time: 07:06 rt 04/10 09:37 Order name: Thyroid Stimulating Hormone EDMS 04/10 09:37 Order name: Urinalysis w/ reflexes EDMS 04/10 09:37 Order name: CBC with Automated Diff EDMS 04/10 09:37 Order name: CBC with Automated Diff EDMS 04/10 09:37 Order name: CBC with Automated Diff EDMS 04/10 09:37 Order name: CBC with Automated Diff EDMS 04/10 09:37 Order name: Comprehensive Metabolic Panel EDMS 04/10 09:37 Order name: Comprehensive Metabolic Panel EDMS 04/10 09:37 Order name: Comprehensive Metabolic Panel EDMS 04/10 09:37 Order name: Comprehensive Metabolic Panel EDMS 04/10 09:37 Order name: Lipid Profile EDMS 04/10 09:37 Order name: Lipid Profile EDMS 04/10 09:37 Order name: Magnesium EDMS 04/10 09:37 Order name: Magnesium EDMS 04/10 09:37 Order name: Magnesium EDMS 04/10 09:37 Order name: Magnesium EDMS 04/10 09:37 Order name: Phosphorus EDMS 04/10 09:37 Order name: Phosphorus EDMS 04/10 09:37 Order name: Phosphorus EDMS 04/10 09:37 Order name: Phosphorus EDMS 04/10 04:43 Order name: CT Abd/Pelvis - IV Contrast Only; Complete Time: 07:56 rt 04/10 08:05 Order name: Transvaginal Study Probe; Complete Time: 09:09 EDMS 04/10 04:43 Order name: IV Saline Lock; Complete Time: 05:25 rt 04/10 04:43 Order name: Labs collected and sent; Complete Time: 05:25 rt 03 05:59 Order name: Accucheck; Complete Time: 06:47 rt 03 05:59 Order name: Cardiac monitoring; Complete Time: 06:47 rt 04/10 05:59 Order name: EKG - Nurse/Tech; Complete Time: 06:47 rt 03 05:59 Order name: IV Saline Lock - Large Bore; Complete Time: 06:47 rt 04/10 05:59 Order name: O2 Per Protocol; Complete Time: 06:47 rt 04/10 05:59 Order name: O2 Sat Monitoring; Complete Time: 06:47 rt 04/10 05:59 Order name: Vital Signs; Complete Time: 06:14 rt EC:47 Rate is 72 beats/min. Rhythm is regular, Normal Sinus Rhythm with No ectopy. QRS [place] rt is Normal. [place] interval is normal. QRS interval is normal. QT interval is normal. No Q waves. T waves are Normal. No ST changes noted. Interpreted by me. Administered Medications: 05:48 Drug: Rocephin IV 2 grams IV at calculated rate once; Given slow IV push per pharmarcy vc1 instructions Route: IV; Rate: calculated rate; Site: right upper arm; 05:48 Drug: metroNIDAZOLE IVPB 500 mg 100 ml IVPB at 200 ml/hr once over 30 mins Volume: 100 vc1 ml; Route: IVPB; Rate: 200 ml/hr; Infused Over: 30 mins; Site: right upper arm; 05:49 Drug: NS 0.9% IV 1000 ml IV at 1 bolus Per protocol; 1000 mL bolus Route: IV; Rate: 1 vc1 bolus; Site: right upper arm; 05:49 Drug: Ondansetron IVP 4 mg IVP once; over 2 minutes Route: IVP; Site: right upper arm; vc1 05:49 Drug: morphine IVP or IV 4 mg IVP once over 4 mins Route: IVP; Infused Over: 4 mins; vc1 Site: right upper arm; Disposition Summary: 04/10/24 09:11 Hospitalization Ordered Notes: Hospitalization Status: Inpatient Admission ec2 Provider: Thien Samuel ec2 Location: Telemetry/[facility] (Inpatient) ec2 Condition: Stable ec2 Problem: an ongoing problem ec2 Symptoms: have improved ec2 Bed/Room Type: Standard ec2 Room Assignment: 409(04/10/24 10:12) ja Diagnosis - Diverticulitis of intestine, part unspecified, without perforation or abscess ec2 without bleeding Forms: - Medication Reconciliation Form ec2 - SBAR form ec2 - Leadership Thank You Letter ec2 Signatures: Dispatcher [employer] EDMS Yarely Maciel Jose, RN RN ja1 Milagros Aragon RN RN vc1 Harlan Chan MD MD rt Yovanny Stovall MD MD ec2 Corrections: (The following items were deleted from the chart) 05:59 05:59 BLOOD CULTURE*+BA.LAB.BRZ ordered. EDMS EDMS 05:59 05:59 LACTATE+C.LAB.BRZ ordered. EDMS EDMS 05:59 05:59 PROTIME (+INR)+COAG.LAB.BRZ ordered. EDMS EDMS 05:59 05:59 PTT, ACTIVATED+COAG.LAB.BRZ ordered. EDMS EDMS 08:05 07:59 Pelvis Complete+US.RAD.BRZ ordered. EDMS EDMS 09:46 09:11 ec2 bd 10:12 09:46 431 bd ja1
--- NOTE | 2024-04-10 09:12 | ER ---
Nurse's Notes [facility] Name: Andreina Brock Age: 73 yrs Sex: Female : 1950 Arrival Date: 04/10/2024 Time: 02:58 Bed 6 Private MD: Diagnosis: Diverticulitis of intestine, part unspecified, without perforation or abscess without bleeding Presentation: 04/10 03:21 Chief complaint: Patient states: in here Wednesday for diverticulitis, im dry heaving, vc1 vomiting, and lower left abdominal pain. Coronavirus screen: Client denies travel out of the [place] in the last 14 days. At this time, the client does not indicate any symptoms associated with coronavirus-19. Ebola Screen: Patient negative for fever greater than or equal to 101.5 degrees Fahrenheit, and additional compatible Ebola Virus Disease symptoms Patient denies exposure to infectious person. Patient denies travel to an Ebola-affected area in the 21 days before illness onset. No symptoms or risks identified at this time. Initial Sepsis Screen: Does the patient meet any 2 criteria? No. Patient's initial sepsis screen is negative. Does the patient have a suspected source of infection? No. Patient's initial sepsis screen is negative. Risk Assessment: Do you want to hurt yourself or someone else? Patient reports no desire to harm self or others. Onset of symptoms is unknown. 03:21 Method Of Arrival: Wheelchair vc1 03:21 Acuity: SILVANA 3 vc1 Historical: - Allergies: 03:23 Cipro; vc1 03:23 Codeine; vc1 03:23 Metoprolol Tartrate; vc1 03:23 PENICILLINS; vc1 - PMHx: 03:23 Arthritis; Crohn's Disease; Diverticulitis; ulcerative colitis (Diverticulitis); vc1 - PSHx: 03:23 Lithotripsy; Total abdominal hysterectomy; vc1 - Immunization history:: Client reports having NOT received the Covid vaccine. Pneumococcal vaccine is not up to date. - Infectious Disease History:: Denies. - Social history:: Smoking status: Patient/guardian denies using tobacco, but has a distant history of tobacco abuse. - Family history:: not pertinent. Screenin:24 Abuse screen: Denies threats or abuse. Nutritional screening: No deficits noted. vc1 Tuberculosis screening: No symptoms or risk factors identified. 06:10 [facility] ED Fall Risk Assessment (Adult) History of falling in the last 3 months, lg3 including since admission No falls in past 3 months (0 pts) Confusion or Disorientation No (0 pts) Intoxicated or Sedated No (0 pts) Impaired Gait No (0 pts) Mobility Assist Device Used No (0 pt) Altered Elimination No (0 pt) Score/Fall Risk Level 0 - 2 = Low Risk Oriented to surroundings, Maintained a safe environment, Educated pt \T\ family on fall prevention, incl call for assistance when getting out of bed, Assessed \T\ reinforced patient's understanding of fall precautions. Assessment: 06:10 General: Appears in no apparent distress. comfortable, Behavior is calm, cooperative. lg3 Pain: Complains of pain in abdomen. Neuro: No deficits noted. Chou Agitation-Sedation Scale (RASS): 0 - Alert and Calm Level of Consciousness is awake, alert, obeys commands, Oriented to person, place, time, situation. Cardiovascular: No deficits noted. Denies chest pain, shortness of breath, Capillary refill < 3 seconds Clubbing of nail beds is absent JVD is absent Patient's skin is warm and dry. Respiratory: No deficits noted. Airway is patent Respiratory effort is even, unlabored, Respiratory pattern is regular, symmetrical. GI: Abdomen is round non-distended, obese, Bowel sounds present X 4 quads. Reports lower abdominal pain, cramping, nausea, vomiting. : No deficits noted. No signs and/or symptoms were reported regarding the genitourinary system. EENT: No deficits noted. No signs and/or symptoms were reported regarding the EENT system. Derm: No deficits noted. No signs and/or symptoms reported regarding the dermatologic system. Skin is intact, is healthy with good turgor, Skin is dry, Skin is normal, Skin temperature is warm. Musculoskeletal: No deficits noted. No signs and/or symptoms reported regarding the musculoskeletal system. Circulation, motion, and sensation intact. Range of motion: intact in all extremities. 07:11 Reassessment: Patient and/or family updated on plan of care and expected duration. Pain rs5 level reassessed. Patient is alert, oriented x 3, equal unlabored respirations, skin warm/dry/pink. Patient denies pain at this time. GI: Patient currently denies nausea. 08:28 Reassessment: No changes from previously documented assessment. rs5 Vital Signs: 03:21 Weight 68.95 kg; Height 4 ft. 11 in. ; Pain 10/10; vc1 03:28 BP 104 / 58; Pulse 83; Resp 15; Temp 98.4; Pulse Ox 94% on R/A; vc1 06:10 BP 94 / 60; Pulse 73; Resp 16; Pulse Ox 95% on R/A; lg3 08:01 BP 114 / 66; Pulse 75; Resp 16; Pulse Ox 95% ; ko1 03:21 Body Mass Index 30.70 (68.95 kg, 149.86 cm) vc1 03:21 Pain Scale: Adult vc1 ED Course: 03:03 Patient arrived in ED. jj6 03:23 Triage completed. vc1 03:23 Arm band placed on right wrist. vc1 03:24 Harlan Chan MD is Attending Physician. rt 05:04 Initial lab(s) drawn, by me, sent to lab. Inserted saline lock: 22 gauge in right upper ty arm, using aseptic technique. Blood collected. 06:09 Ebony Lau, RN is Primary Nurse. lg3 06:10 Patient has correct armband on for positive identification. Placed in gown. Bed in low lg3 position. Call light in reach. Side rails up X 1. Client placed on continuous cardiac and pulse oximetry monitoring. NIBP monitoring applied. Door closed. Noise minimized. Warm blanket given. Family accompanied patient. 06:10 First set of blood cultures drawn by me. km8 06:37 Second set of blood cultures drawn by me. km8 06:47 Blood Culture Adult (2) Sent. km8 06:47 Lactate w/ 2H reflex if indic. Sent. km8 06:47 Protime (+inr) Sent. km8 06:47 Ptt, Activated Sent. km8 06:48 EKG done, by ED staff. km8 06:57 CT Abd/Pelvis - IV Contrast Only In Process Unspecified. EDMS 07:06 Attending Physician role handed off by Harlan Chan MD ec2 07:06 Yovanny Stovall MD is Attending Physician. ec2 08:01 Provided Education on: call light. ko1 08:57 Transvaginal Study Probe In Process Unspecified. EDMS 09:11 Thien Samuel MD is Hospitalizing Provider. ec2 11:01 No provider procedures requiring assistance completed. Patient admitted, IV remains in ko1 place. Administered Medications: 05:48 Drug: Rocephin IV 2 grams IV at calculated rate once; Given slow IV push per pharmarcy vc1 instructions Route: IV; Rate: calculated rate; Site: right upper arm; 05:48 Drug: metroNIDAZOLE IVPB 500 mg 100 ml IVPB at 200 ml/hr once over 30 mins Volume: 100 vc1 ml; Route: IVPB; Rate: 200 ml/hr; Infused Over: 30 mins; Site: right upper arm; 05:49 Drug: NS 0.9% IV 1000 ml IV at 1 bolus Per protocol; 1000 mL bolus Route: IV; Rate: 1 vc1 bolus; Site: right upper arm; 05:49 Drug: Ondansetron IVP 4 mg IVP once; over 2 minutes Route: IVP; Site: right upper arm; vc1 05:49 Drug: morphine IVP or IV 4 mg IVP once over 4 mins Route: IVP; Infused Over: 4 mins; vc1 Site: right upper arm; Medication: 03:24 VIS not applicable for this client. vc1 Outcome: 09:11 Decision to Hospitalize by Provider. ec2 11:01 Admitted to Med/surg accompanied by tech, via wheelchair, room 409, with chart, ko1 11:01 Condition: stable 11:01 Instructed on the need for admit, 11:14 Patient left the ED. ko1 Signatures: Dispatcher [employer] EDMS Ebony Lau RN RN lg3 Myrna Wilson jj6 Milagros Aragon RN RN vc1 Edna Asencio, RN RN ko1 Harlan Chan MD MD rt Dequan Ortiz RN RN rs5 Yovanny Stovall MD MD ec2 Virgen Buchanan, RN RN km8 Alexis Waldrop
--- NOTE | 2024-04-10 09:32 | P.HP ---
Certification for Inpatient Patient admitted to: Inpatient With expected LOS: >2 Midnights Patient will require the following post-hospital care: None Practitioner: I am a practitioner with admitting privileges, knowledge of patient current condition, hospital course, and medical plan of care. Services: Services provided to patient in accordance with Admission requirements found in Title 42 Section 412.3 of the Code of Federal Regulations <Cat Camilo - Last Filed: 04/10/24 10:14> Patient History Date of Service: 04/10/24 Primary Care Provider: Fidel Reason for admission: Diverticulitis/ulcerative colitis History of Present Illness: Mrs. Rod is a 73-year-old with a past medical history of ulcerative colitis, diverticulitis, and a heart murmur with arrhythmia. She presented to the emergency department several days ago with dark urine. At that time she was diagnosed with a urinary tract infection and it was recommended she stay in the hospital. She declined thinking she would follow-up with Dr. Thurston. However, over the weekend, she had worsening nausea, vomiting, and dry heaving. She presented to the emergency department once again this morning around 0530 with abdominal pain and fever, denies current bloody stools. On laboratory evaluation, CBC concerning only for left shift of 90% neutrophils with 35% bandemia, Chem-7 with a sodium of 135, potassium 3.3, chloride 101, bicarb 26, glucose 112, BUN 10, creatinine 0.89 with a GFR of 69, lipase 12. On imaging, impression "multiple cystic lesions are present in the left adnexa/left ovary with size increase since 02/18/2024. Mild surrounding inflammation is also seen in the left adnexal region as well as adjacent sigmoid colon where numerous diverticula are present. The findings would raise concern for possible left ovarian cystic mass or neoplasia. Consider direct visualization with laparoscopic for follow-up." On exam she is mildly pale, dry appearing, but relieved with no symptoms after medication with morphine, Zofran, Flagyl, and Rocephin. She states she has recently seen Dr. Thurston. She was treated with antibiotics and steroids for worsening ulcerative colitis symptoms and was found to have a urinary tract infection. 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 Mrs. Rod states she was told repeated exacerbation of colitis may require surgical intervention. She will be admitted to the hospital for treatment of her diverticulitis/colitis with bowel rest, hydration, antibiotics, and consult to Dr. Thurston. Home medications list reviewed: Yes (Takes only Toprol XL daily, will check on Skyrezi) - Past Medical/Surgical History Has patient received pneumonia vaccine in the past: No Diabetic: No -: Diverticulitis -: Ulcerative colitis -: Arrhythmia -: Heart murmur -: Kidney stone -: hyst -: kidney sx Psychosocial/ Personal History: Lives at home with her , daughter, and sometimes granddaughter - Family History Mother -: Heart disease - Social History Smoking Status: Former smoker Alcohol use: No CD- Drugs: No Caffeine use: Yes Place of Residence: Home <CamiloCatefe Downey - Last Filed: 04/10/24 10:14> Date of Service: 04/10/24 <Thien Samuel - Last Filed: 04/10/24 15:17> Allergies Penicillins Allergy (Severe, Verified 04/10/24 11:24) Anaphylaxis ciprofloxacin [From Cipro] Allergy (Verified 04/10/24 11:24) Nausea/Vomiting codeine Allergy (Verified 04/10/24 11:24) Itching metoprolol [From Toprol XL] Allergy (Verified 04/10/24 11:25) Itching No Known Allergies Allergy (Uncoded 02/16/16 23:23) Unknown Home Medications: Metoprolol Succinate [Toprol Xl*] 50 mg PO DAILY 04/10/24 Review of Systems 10-point ROS is otherwise unremarkable General: Fever, Weakness, Malaise Gastrointestinal: Nausea, Vomiting, Abdominal Pain <TonCat Shayan - Last Filed: 04/10/24 10:14> Physical Examination - Physical Exam General: Alert, In no apparent distress, Oriented x3 HEENT: Atraumatic, Normocephalic Neck: Supple Respiratory: Normal air movement Cardiovascular: Normal pulses, Regular rate/rhythm, Other (Newly bradycardic at 58, mildly hypotensive at 95/57 status post morphine, currently asymptomatic) Capillary refill: <2 Seconds Gastrointestinal: Hypoactive, Tenderness (LLQ) Musculoskeletal: No clubbing, No swelling Integumentary: No rashes Neurological: Normal speech, Normal tone Lymphatics: No axilla or inguinal lymphadenopathy External genitalia: Deferred Rectal: Deferred - Studies Laboratory Data (last 24 hrs) 04/10/24 04/10/24 04/10/24 06:37 05:02 05:02 WBC 10.70 Hgb 12.5 Hct 36.6 Plt Count 252 PT 14.9 H INR 1.37 APTT 27.9 Sodium 135 L Potassium 3.3 L BUN 10 Creatinine 0.89 Glucose 112 H Total Bilirubin 0.9 AST 13 L ALT 20 Alkaline Phosphatase 61 Lipase 12 L <Cat Camilo - Last Filed: 04/10/24 10:14> - Studies Laboratory Data (last 24 hrs) 04/10/24 04/10/24 04/10/24 06:37 05:02 05:02 WBC 10.70 Hgb 12.5 Hct 36.6 Plt Count 252 PT 14.9 H INR 1.37 APTT 27.9 Sodium 135 L Potassium 3.3 L BUN 10 Creatinine 0.89 Glucose 112 H Total Bilirubin 0.9 AST 13 L ALT 20 Alkaline Phosphatase 61 Lipase 12 L <Thien Samuel - Last Filed: 04/10/24 15:17> Assessment and Plan - Plan Diverticulitis Aggressive IV hydration IV antibiotic antipyretics Outpatient colonoscopy Pain control Monitor for perforation consult Dr. Thurston Arrhythmia Rhythm control with Toprol XL 50mg po daily as tolerated (hold for SBP < 110, HR < 60 Ovarian cyst/mass Outpatient follow-up with gynecology VRE/GI prophylaxis SCDs second to GI bleeding history Protonix - Advance Directives Does patient have a Living Will: No Does patient have a Durable POA for Healthcare: No <Cat Camilo - Last Filed: 04/10/24 10:14> - Plan Pt seen and examined. I agree with the note by the [employer] CONSULTANT. Pt is a 73yo female with past medical history of ulcerative colitis, diverticulitis, and a heart murmur with arrhythmia who presents with worsening nausea, vomiting, and dry heaving. Of note, pt was recently treated in the ER for UTI. Pt presented today with worsening abdominal pain and fever. On admission, lab studies show wbc 10.7, Hgb 12.5, glucose 252, K 3.3, Cr 0.89. CT abd shows diverticulitis and multiple cystic lesions in the left adnexa/left ovary with size increase since 02/18/2024. The findings would raise concern for possible left ovarian cystic mass or neoplasia. At bedide, pt is in NAD. A/P: Diverticulitis: Will continue ivf, rocephin and flagyl and f/u blood cx. Consulted GI. Ovarian cysts: Per CT abd. Will f/u with Corporate Tax Preparer in clinic. Arrhythmia: Will continue metoprolol. Code: full <Thien Samuel - Last Filed: 04/10/24 15:17>
[2024-04-10 11:32] VITALS: BMI 30.7
[2024-04-10] MEDS: PANTOPRAZOLE 40 MG INJ IVP SCH (12:07)
[2024-04-10] MEDS: NA CHLORIDE 0.9% 1,000 ML IV SCH (12:07)
[2024-04-10] MEDS: METRONIDAZOLE 500mg IVPB 500 MG/100 ML BAG IV SCH (14:04)
--- NOTE | 2024-04-10 14:05 | EKG ---
Test Date: 2024-04-10 Test Time: 06:43:48 Rivet Catcher: AMA MEASUREMENT RESULTS: Intervals: Rate: 72 OK: 160 QRSD: 80 QT: 432 QTc: 473 [place]: P: 58 OK: 160 QRS: 43 T: 30 INTERPRETIVE STATEMENTS: Normal sinus rhythm Normal ECG Compared to ECG 10/25/2023 19:01:58 No significant changes Electronically Signed On 04-10-24 14:04:29 CDT by Felton Mercer
[2024-04-10] MEDS: HYDROCODONE/APAP 7.5/325 MG TAB PO PRN (14:34)
[2024-04-10] MEDS: MORPHINE 4 MG/ML SYR IV PRN (15:14)
[2024-04-10] MEDS: ONDANSETRON 4 MG/2 ML VIAL IV PRN (15:14)
[2024-04-10] MEDS: CEFTRIAXONE 1,000 MG in NA CHLORIDE 0.9% 50 ML IVPB SCH (17:20)
[2024-04-10] MEDS: PROMETHAZINE INJ 25 MG/ML AMP IV ONE (20:55)
[2024-04-10] MEDS: MESALAMINE 500 MG CAPSULE.ER PO SCH (21:00)
[2024-04-10] MEDS: SODIUM CHLORIDE 0.9% 10ML INJ IV PRN (21:02)
[2024-04-11] MEDS: METOPROLOL XL 50 MG TAB PO SCH (05:36)
[2024-04-11 08:02] LABS: Albumin 2.3 g/dL (3.4-5.0); Albumin/Globulin Ratio 0.7 (1.1-1.8); Anion Gap 13.8 mEq/L (5.0-15.0); Bilirubin Total 0.4 mg/dL (0.2-1.0); Globulin 3.5 g/dL (2.3-3.5); Magnesium 2.2 mg/dL (1.6-2.4); Potassium 3.8 mEq/L (3.5-5.1); Protein, Total 5.8 g/dL (6.4-8.2)
[2024-04-11] MEDS ORDERED: PROMETHAZINE INJ 25 MG/ML AMP IV PRN (08:52)
[2024-04-11 10:08] LABS: Absolute Eosinophils 0.1 K/uL (0-0.5); Absolute Lymphocytes (CBC) 0.6 K/uL (0.7-4.9); Absolute Monocytes 0.6 K/uL (0.1-1.3); Absolute Neutrophil 5.2 K/uL (1.8-8.0); Basophils % 0.3 % (0-1.3); Eosinophils % 1.4 % (0-4.4); Hemoglobin 11.4 g/dL (12.0-15.0); Lymphocytes % 8.8 % (15.3-44.8); MCH 30.4 pg (27.0-35.0); MCHC 33.4 g/dL (32.0-36.0); MCV 90.9 fL (80-100); Monocytes % 8.9 % (3.3-12.3); Neutrophils % 80.6 % (41.7-73.7); Platelets 278 thou/uL (152-406); RBC Red Blood Cell Count 3.74 M/uL (3.86-4.86); Red Cell Distribution Width 14.3 % (12.1-15.2)
[2024-04-11] MEDS ORDERED: POTASSIUM CL SA 10 MEQ TAB PO ONE (11:00)
[2024-04-11] MEDS ORDERED: POTASS/SODIUM PHOSPHATE 1 PKT POWD.PACK PO SCH (11:00)
[2024-04-11 11:35] VITALS: O2SAT 97
[2024-04-11] MEDS: POTASSIUM PHOS IN 0.9 % NACL 15 MMOL/250 ML BAG IV ONE (11:50)
[2024-04-11 12:18] LABS: Specific Gravity 1.018 (1.005-1.030); Sqamous Epithelial <5 /HPF (None Seen); Urine Bacteria None Seen /HPF (<20); Urine Bilirubin NEGATIVE (Negative); Urine Blood 1+ (Negative); Urine Clarity Extremely Turbid (Clear); Urine Color Light-Yellow (Yellow); Urine Culture Reflex Order REFLEXED; Urine Glucose NEGATIVE (Negative); Urine Ketones 4+ (Over) (Negative); Urine Microscopic Reflex YN ORDER UMIC; Urine Nitrite NEGATIVE (Negative); Urine Protein TRACE (Negative); Urine Urobilinogen Normal (Normal); Urine WBC >50 /HPF (<5); Urine WBC Clump Rare /HPF (None Seen); Urine pH 5.5 (5.0-7.0)
--- NOTE | 2024-04-11 12:21 | P.PN ---
Subjective Date of Service: 04/11/24 Primary Care Provider: Fidel Chief Complaint: Diverticulitis/ulcerative colitis Subjective: No new changes (slept overnight 2nd to phenergan) <Cat Camilo - Last Filed: 04/11/24 12:22> Date of Service: 04/11/24 <Thien Samuel - Last Filed: 04/11/24 14:34> Review of Systems 10-point ROS is otherwise unremarkable General: As per HPI Gastrointestinal: Nausea, Abdominal Pain, As per HPI <Cat Camilo - Last Filed: 04/11/24 12:22> Physical Examination - Vital Signs Temperature: 97.2 F Blood Pressure: 152/69 Pulse: 76 Respirations: 18 Pulse Ox (%): 97 - Physical Exam General: Alert, In no apparent distress, Oriented x3 HEENT: Atraumatic, Normocephalic Neck: Supple Respiratory: Normal air movement Cardiovascular: Normal pulses, Regular rate/rhythm Capillary refill: <2 Seconds Gastrointestinal: Hypoactive, Tenderness (LLQ) Musculoskeletal: No clubbing Integumentary: No rashes Neurological: Normal speech, Normal tone, Normal affect Lymphatics: No axilla or inguinal lymphadenopathy External genitalia: Deferred Rectal: Deferred <Cat Camilo - Last Filed: 04/11/24 12:22> Assessment And Plan - Plan Diverticulitis Aggressive IV hydration IV antibiotic antipyretics Outpatient colonoscopy Pain control Monitor for perforation consult Dr. Thurston Arrhythmia Rhythm control with Toprol XL 50mg po daily as tolerated (hold for SBP < 110, HR < 60 Ovarian cyst/mass Outpatient follow-up with gynecology VRE/GI prophylaxis SCDs second to GI bleeding history Protonix <Cat Camilo - Last Filed: 04/11/24 12:22> - Plan Pt ebony nd examined. I agree with the note by the COSTING ANALYST. Will continue iv abx and f/u blood cx. She complains of bloody BM. Consulted GI. Monitor H/H. <Thien Samuel - Last Filed: 04/11/24 14:34>
[2024-04-11] MEDS: predniSONE 10 MG TAB PO SCH (16:35)
[2024-04-11] MEDS: MESALAMINE 500 MG CAPSULE.ER PO SCH (21:55)
[2024-04-12 08:38] LABS: Albumin 2.3 g/dL (3.4-5.0); Albumin/Globulin Ratio 0.6 (1.1-1.8); Anion Gap 10.4 mEq/L (5.0-15.0); Bilirubin Total 0.3 mg/dL (0.2-1.0); Globulin 3.8 g/dL (2.3-3.5); Magnesium 2.2 mg/dL (1.6-2.4); Phosphorus 1.6 mg/dL (2.5-4.9); Potassium 3.4 mEq/L (3.5-5.1); Protein, Total 6.1 g/dL (6.4-8.2)
[2024-04-12] MEDS: METOPROLOL XL 25 MG TAB PO SCH ×2 (09:00→15:57)
[2024-04-12] MEDS: POTASSIUM PHOS 44 MEQ in NA CHLORIDE 0.9% 500 ML IV ONE (10:44)
--- NOTE | 2024-04-12 14:39 | P.PN ---
Subjective Date of Service: 04/12/24 Primary Care Provider: Fidel Chief Complaint: Diverticulitis/ulcerative colitis Pt is resting comfortably in bed. She resports a little blood in her stool this am. Hgb is 11.4. GI is following. Will continue iv abx. No other complaints. Review of Systems General: Unremarkable Eyes: Unremarkable ENT: Unremarkable Respiratory: Unremarkable Cardiovascular: Unremarkable Gastrointestinal: Unremarkable Genitourinary: Unremarkable Musculoskeletal: Unremarkable Integumentary: Unremarkable Neurological: Unremarkable Lymphatics: Unremarkable Physical Examination - Vital Signs Temperature: 98.4 F Blood Pressure: 143/78 Pulse: 67 Respirations: 18 Pulse Ox (%): 98 - Physical Exam General: Alert, In no apparent distress, Oriented x3 HEENT: Atraumatic, Normocephalic, PERRLA Neck: Supple, 2+ carotid pulse no bruit, JVD not distended Respiratory: Clear to auscultation bilaterally, Normal air movement Cardiovascular: No edema, Normal pulses, Regular rate/rhythm, Normal S1 S2 Capillary refill: <2 Seconds Gastrointestinal: Normal bowel sounds, Soft and benign, Non-distended, Tenderness Musculoskeletal: No clubbing, No swelling Integumentary: No rashes, No breakdown Neurological: Normal speech, Normal strength at 5/5 x4 extr, Normal tone Lymphatics: No axilla or inguinal lymphadenopathy Assessment And Plan - Plan Diverticulitis: Will continue IVF, abx and prn pain med. GI is following. GI bleed: Hgb is 11.4. Likley diverticular bleed. Will monitor H/H. GI is following. Arrhythmia: Will continue Toprol XL 50mg po daily as tolerated (hold for SBP < 110, HR < 60 Ovarian cyst/mass: will f/u with [facility] [employer]ctor on outpatient DVT ppx SCD Dispo: Pending hospital course.
[2024-04-12] MEDS: HYDRALAZINE HCL 20 MG/ML VIAL IV PRN (16:15)
[2024-04-12] MEDS: METOPROLOL 50 MG PO SCH (17:13)
[2024-04-13] MEDS: POTASSIUM PHOS 30 MM in NA CHLORIDE 0.9% 500 ML IV ONE (06:12)
[2024-04-13] MEDS: ACETAMINOPHEN 325 MG TABLET PO PRN (06:31)
[2024-04-13 07:07] LABS: Absolute Eosinophils 0.1 K/uL (0-0.5); Absolute Monocytes 0.4 K/uL (0.1-1.3); Absolute Neutrophil 3.6 K/uL (1.8-8.0); Basophils % 0.4 % (0-1.3); Eosinophils % 1.8 % (0-4.4); Hematocrit 36.1 % (36.0-45.0); Hemoglobin 12.2 g/dL (12.0-15.0); Lymphocytes % 19.3 % (15.3-44.8); MCH 30.4 pg (27.0-35.0); MCHC 33.9 g/dL (32.0-36.0); MCV 89.6 fL (80-100); MPV 8.1 fL (7.6-11.3); Monocytes % 8.5 % (3.3-12.3); Nucleated Red Blood Cells % 0.2 % (0-0); Platelets 407 thou/uL (152-406); RBC Red Blood Cell Count 4.03 M/uL (3.86-4.86); Red Cell Distribution Width 14.2 % (12.1-15.2)
[2024-04-13 07:40] LABS: Albumin 2.5 g/dL (3.4-5.0); Albumin/Globulin Ratio 0.7 (1.1-1.8); Anion Gap 7.8 mEq/L (5.0-15.0); Bilirubin Total 0.2 mg/dL (0.2-1.0); Globulin 3.6 g/dL (2.3-3.5); Magnesium 1.8 mg/dL (1.6-2.4); Potassium 2.8 mEq/L (3.5-5.1); Protein, Total 6.1 g/dL (6.4-8.2)
[2024-04-13 07:45] LABS: Phosphorus 1.5 mg/dL (2.5-4.9)
[2024-04-13] MEDS: POTASSIUM 25 MEQ EFFERV TAB PO ONE (08:33)
[2024-04-13] MEDS ORDERED: METOPROLOL 25 MG PO SCH (09:00)
[2024-04-13] MEDS: POTASSIUM PHOS IN 0.9 % NACL 15 MMOL/250 ML BAG IV ONE (09:34)
--- NOTE | 2024-04-13 10:23 | P.PN ---
Subjective Date of Service: 04/13/24 Primary Care Provider: Fidel Chief Complaint: Diverticulitis/ulcerative colitis Subjective: Improving (tolerating full liquid, headache but tylenol helped, will advance diet today. Will ambulate with assist today, probable dc tomorrow) <Sarah Camiloy Shayan - Last Filed: 04/13/24 10:17> Date of Service: 04/14/24 <Thien Samuel Nancy - Last Filed: 04/14/24 15:06> Review of Systems 10-point ROS is otherwise unremarkable <Sarah Camiloy Shayan - Last Filed: 04/13/24 10:17> Physical Examination - Vital Signs Temperature: 96.8 F Blood Pressure: 173/86 Pulse: 70 Respirations: 16 Pulse Ox (%): 100 - Physical Exam General: Alert, In no apparent distress, Oriented x3, Other (headache) HEENT: Atraumatic, Normocephalic Neck: Supple Respiratory: Normal air movement Cardiovascular: No edema Capillary refill: <2 Seconds Gastrointestinal: Soft and benign Musculoskeletal: No clubbing Integumentary: No rashes Neurological: Normal tone, Normal affect Lymphatics: No axilla or inguinal lymphadenopathy External genitalia: Deferred Rectal: Deferred <Sarah Camiloy Shayan - Last Filed: 04/13/24 10:17> Assessment And Plan - Plan Diverticulitis Aggressive IV hydration 04/13 IV antibiotic - will follow uc sensitivities antipyretics - no fever Pain control - 04/[address] Thurston following - would like pt to f/u with Dr. Tessa Thompson post discharge 04/13 UTI - uc with 2+ gram neg rods - prelim Arrhythmia Rhythm control with Toprol XL 50mg po daily as tolerated (hold for SBP < 110, HR < 60) 04/11 Electrolyte derangement trend and replete 04/13 advance diet, tolerated clear liquids, moved to full last pm. Will give full liquids breakfast and lunch today, soft diet tonight Ambulate with PT today, probable dc tomorrow Ovarian cyst/mass Outpatient follow-up with gynecology VRE/GI prophylaxis SCDs second to GI bleeding history Protonix <CamiloCat Downey - Last Filed: 04/13/24 10:17> - Plan Pt seen and examined. I agree with the note by the BOBBIN WINDER TENDER. Will continue iv abx for diverticulitis. Will f/u with a specialist in [place] for further evaluation. Continue metoprolol. <Thien Samuel - Last Filed: 04/14/24 15:06>
[2024-04-13] MEDS: MAGNESIUM SULFATE 1 gm IVPB 1 GM/100 ML BAG IV ONE (10:55)
[2024-04-13 16:21] LABS: Phosphorus 2.2 mg/dL (2.5-4.9); Potassium 3.6 mEq/L (3.5-5.1)
[2024-04-13] MEDS: POTASSIUM CL SA 10 MEQ TAB PO ONE (16:57)
[2024-04-13] MEDS: POTASS/SODIUM PHOSPHATE 1 PKT POWD.PACK PO SCH (16:57)
[2024-04-13] MEDS ORDERED: POTASSIUM 25 MEQ EFFERV TAB PO ONE (17:00)
[2024-04-13] MEDS: TRAMADOL HCL 50 MG TAB PO ONE (21:31)
[2024-04-14 06:02] LABS: Anion Gap 6.1 mEq/L (5.0-15.0); Bicarbonate 29 mEq/L (21-32); Glomerular Filtration Rate 97 ml/min (=/>90); Glucose Level 124 mg/dL (74-106); Magnesium 1.8 mg/dL (1.6-2.4); Phosphorus 2.4 mg/dL (2.5-4.9); Potassium 3.1 mEq/L (3.5-5.1); Sodium Level 140 mEq/L (136-145)
[2024-04-14 06:05] LABS: BUN Blood Urea Nitrogen < 3 mg/dL (7-18)
--- NOTE | 2024-04-14 06:32 | P.DS ---
Admission Date: 04/10/24 Discharge Date: 04/14/24 Primary Care Provider: Fidel Reason for Admission: Diverticulitis/ulcerative colitis Consultations: Dr. Thurston Procedures: None Brief History of Present Illness: Mrs. Rod is a 73-year-old with a past medical history of ulcerative colitis, diverticulitis, and a heart murmur with arrhythmia. She presented to the emergency department several days ago with dark urine. At that time she was diagnosed with a urinary tract infection and it was recommended she stay in the hospital. She declined thinking she would follow-up with Dr. Thurston. However , over the weekend, she had worsening nausea, vomiting, and dry heaving. She presented to the emergency department once again this morning around 0530 with abdominal pain and fever, denies current bloody stools. On laboratory evaluation, CBC concerning only for left shift of 90% neutrophils with 35% bandemia, Chem-7 with a sodium of 135, potassium 3.3, chloride 101, bicarb 26, glucose 112, BUN 10, creatinine 0.89 with a GFR of 69, lipase 12. On imaging, impression "multiple cystic lesions are present in the left adnexa/left ovary with size increase since 02/18/2024. Mild surrounding inflammation is also seen in the left adnexal region as well as adjacent sigmoid colon where numerous diverticula are present. The findings would raise concern for possible left ovarian cystic mass or neoplasia. Consider direct visualization with laparoscopic for follow-up." On exam she is mildly pale, dry appearing, but relieved with no symptoms after medication with morphine, Zofran, Flagyl, and Rocephin. She states she has recently seen Dr. Thurston. She was treated with antibiotics and steroids for worsening ulcerative colitis symptoms and was found to have a urinary tract infection. 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 Mrs. Rod states she was told repeated exacerbation of colitis may require surgical intervention. She will be admitted to the hospital for treatment of her diverticulitis/colitis with bowel rest, hydration, antibiotics, and consult to Dr. Thurston. Hospital Course: Ms. Rod did really well over the course of her hospitalization. Her diet was slowly advanced. She is tolerating soft bite-size foods. She has had no further fever, pain, or rectal bleeding. Dr. Barrientos would like her to follow-up with Dr. Thompson regarding her Crohn's/diverticulitis. We will discharge her on Invanz 1 gm daily for 13 days and Pentasa. Her blood pressure has been more elevated than what is normal for her during this admission. She is allergic to generic metoprolol and has been taking her Toprol XL. We will add lisinopril 2.5 mg p.o. daily. Please continue to monitor and record blood pressure readings. <Cat Camilo - Last Filed: 04/14/24 14:16> Admission Date: 04/10/24 Discharge Date: 04/14/24 Hospital Course: Pt seen and examined. I agree with the note by the PHLEBOTOMIST ASSOCIATE. Urine cx is growing ESBL E. coli. Will dc pt with invanz. We ordered PICC placement. Follow up with PCP and ID in clinic. Ok to discharge pt. <Thien Samuel - Last Filed: 04/14/24 15:06> Disposition: ROUTINE DISCHARGE Discharge Condition: GOOD Vital Signs/Physical Exam: Temp Pulse Resp BP Pulse Ox 96.9 F 71 16 187/93 H 99 04/14/24 04:00 04/14/24 04:00 04/14/24 04:00 04/14/24 04:00 04/14/24 04:00 General: Alert, In no apparent distress, Oriented x3 HEENT: Atraumatic, Normocephalic Respiratory: Normal air movement Cardiovascular: Normal pulses, Regular rate/rhythm, Normal S1 S2 Capillary refill: <2 Seconds Gastrointestinal: Soft and benign, No tenderness Musculoskeletal: No clubbing Integumentary: No rashes Neurological: Normal speech, Normal tone, Normal affect Lymphatics: No axilla or inguinal lymphadenopathy External genitalia: Deferred Rectal: Deferred Laboratory Data at Discharge: WBC 5.20 thou/uL (4.3-10.9) 04/13/24 06:35 Hgb 12.2 g/dL (12.0-15.0) 04/13/24 06:35 Hct 36.1 % (36.0-45.0) 04/13/24 06:35 Plt Count 407 thou/uL (152-406) H 04/13/24 06:35 PT 14.9 SECONDS (9.5-12.5) H 04/10/24 06:37 INR 1.37 04/10/24 06:37 APTT 27.9 SECONDS (24.3-36.9) 04/10/24 06:37 Sodium 140 mEq/L (136-145) 04/14/24 05:30 Potassium 3.1 mEq/L (3.5-5.1) L D 04/14/24 05:30 BUN < 3 mg/dL (7-18) L 04/14/24 05:30 Creatinine 0.57 mg/dL (0.55-1.02) 04/14/24 05:30 Glucose 124 mg/dL (74-106) H 04/14/24 05:30 Phosphorus 2.4 mg/dL (2.5-4.9) L 04/14/24 05:30 Magnesium 1.8 mg/dL (1.6-2.4) 04/14/24 05:30 Total Bilirubin 0.2 mg/dL (0.2-1.0) 04/13/24 06:35 AST 11 U/L (15-37) L 04/13/24 06:35 ALT 16 U/L (13-56) 04/13/24 06:35 Alkaline Phosphatase 45 U/L (45-117) 04/13/24 06:35 Triglycerides 61 mg/dL (<150) 04/11/24 07:16 Cholesterol 114 mg/dL (<200) 04/11/24 07:16 HDL Cholesterol 41 mg/dL (40-60) 04/11/24 07:16 Cholesterol/HDL Ratio 2.78 04/11/24 07:16 Lipase 12 U/L (13-75) L 04/10/24 05:02 <Camilo,Cat Shayan - Last Filed: 04/14/24 14:16> Vital Signs/Physical Exam: Temp Pulse Resp BP Pulse Ox 97.1 F 73 20 139/76 97 04/14/24 08:00 04/14/24 09:50 04/14/24 08:00 04/14/24 09:50 04/14/24 08:00 Laboratory Data at Discharge: WBC 5.20 thou/uL (4.3-10.9) 04/13/24 06:35 Hgb 12.2 g/dL (12.0-15.0) 04/13/24 06:35 Hct 36.1 % (36.0-45.0) 04/13/24 06:35 Plt Count 407 thou/uL (152-406) H 04/13/24 06:35 PT 14.9 SECONDS (9.5-12.5) H 04/10/24 06:37 INR 1.37 04/10/24 06:37 APTT 27.9 SECONDS (24.3-36.9) 04/10/24 06:37 Sodium 140 mEq/L (136-145) 04/14/24 05:30 Potassium 3.1 mEq/L (3.5-5.1) L D 04/14/24 05:30 BUN < 3 mg/dL (7-18) L 04/14/24 05:30 Creatinine 0.57 mg/dL (0.55-1.02) 04/14/24 05:30 Glucose 124 mg/dL (74-106) H 04/14/24 05:30 Phosphorus 2.4 mg/dL (2.5-4.9) L 04/14/24 05:30 Magnesium 1.8 mg/dL (1.6-2.4) 04/14/24 05:30 Total Bilirubin 0.2 mg/dL (0.2-1.0) 04/13/24 06:35 AST 11 U/L (15-37) L 04/13/24 06:35 ALT 16 U/L (13-56) 04/13/24 06:35 Alkaline Phosphatase 45 U/L (45-117) 04/13/24 06:35 Triglycerides 61 mg/dL (<150) 04/11/24 07:16 Cholesterol 114 mg/dL (<200) 04/11/24 07:16 HDL Cholesterol 41 mg/dL (40-60) 04/11/24 07:16 Cholesterol/HDL Ratio 2.78 04/11/24 07:16 Lipase 12 U/L (13-75) L 04/10/24 05:02 <Thien Samuel - Last Filed: 04/14/24 15:06> Diet: [facility] Activity: Ad kathryn <Camilo,Cat Shayan - Last Filed: 04/14/24 14:16> <Thien Samuel - Last Filed: 04/14/24 15:06> Home Medications: Metoprolol Succinate [Toprol Xl*] 50 mg PO DAILY 04/10/24 Pantoprazole [Protonix Tab*] 40 mg PO DAILY 04/13/24 Tramadol HCl [Ultram] 50 mg PO TIDP PRN 04/13/24 Lisinopril [Zestril] 5 mg PO DAILY #60 tab 04/14/24 Mesalamine [Pentasa*] 500 mg PO BID #60 cap 04/14/24 Potassium Chloride 20 meq PO DAILY 5 Days #5 tab 04/14/24 predniSONE [Deltasone*] 10 mg PO DAILY 7 Days #7 tab 04/14/24 New Medications: predniSONE [Deltasone*] 10 mg PO DAILY 7 Days #7 tab Mesalamine [Pentasa*] 500 mg PO BID #60 cap Potassium Chloride 20 meq PO DAILY 5 Days #5 tab Lisinopril [Zestril] 5 mg PO DAILY #60 tab Physician Discharge Instructions: Ms. Rod did really well over the course of her hospitalization. Her diet was slowly advanced. She is tolerating soft bite-size foods. She has had no further fever, pain, or rectal bleeding. Dr. Barrientos would like her to follow-up with Dr. Thompson regarding her Crohn's/diverticulitis. We will discharge her on Invanz 1 gm IVPB via PICC x 13 days and Pentasa. Her blood pressure has been more elevated than what is normal for her during this admission. She is allergic to generic metoprolol and has been taking her Toprol XL. We will add lisinopril 2.5 mg p.o. daily. Please continue to monitor and record blood pressure readings. Please follow-up with Dr. Parra in 1 [address] Barrientos next to verify specialist Dr. Thompson. [facility]) [place] P:[phone] F:[phone] [place] [address], [place] [address] P/ Stephanie: [phone] F Patient has a new patient appt with Dr. Castrejon on 04/19/24. She will follow IV antibiotic course. Okay to DC IV and DC home Please call the inpatient unit for any questions or concerns regarding hospital stay Return to the ER for worsening symptoms Followup: David Parra, [Primary Care Provider] - Toro Thurston MD [ACTIVE - CAN ADMIT] -
[2024-04-14] MEDS: MAGNESIUM SULFATE 1 gm IVPB 1 GM/100 ML BAG IV ONE (07:55)
[2024-04-14] MEDS: POTASS/SODIUM PHOSPHATE 1 PKT POWD.PACK PO SCH (07:55)
[2024-04-14] MEDS: lisinopriL 5 MG TAB PO ONE (09:50)
[2024-04-14 09:52] VITALS: BP 139/76
[2024-04-14] MEDS: POTASSIUM CL SA 10 MEQ TAB PO ONE (10:28)
[2024-04-14 10:49] VITALS: TEMP 97.1
[2024-04-14] MEDS ORDERED: ERTAPENEM SODIUM 1 GM VIAL IVPB ONE (14:19)
[2024-04-14] MEDS: ERTAPENEM NA 1 GM in NA CHLORIDE 0.9% 100 ML IVPB ONE (15:14)
== END 2024-04-14 17:46 | disposition home health service (06) | DRG 378 ==
LOC: ER 02:58 → 4TH 09:33
PROVIDERS: ADMIT Hospitalist; ATTEND Hospitalist
PROC: 02HV33Z Insertion of Infusion Device into Superior Vena Cava, Percutaneous Approach (ICD-10-PCS; principal; 2024-04-10)
DX: K57.33 Diverticulitis of large intestine without perforation or abscess with bleeding (principal); K51.90 Ulcerative colitis, unspecified, without complications; Z16.12 Extended spectrum beta lactamase (ESBL) resistance; E87.6 Hypokalemia; M19.90 Unspecified osteoarthritis, unspecified site; I49.9 Cardiac arrhythmia, unspecified; N83.202 Unspecified ovarian cyst, left side; Z88.1 Allergy status to other antibiotic agents; B96.20 Unspecified Escherichia coli [E. coli] as the cause of diseases classified elsewhere; Z88.0 Allergy status to penicillin; Z88.5 Allergy status to narcotic agent; Z88.8 Allergy status to other drugs, medicaments and biological substances; Z79.52 Long term (current) use of systemic steroids; Z28.310 Unvaccinated for COVID-19; Z79.899 Other long term (current) drug therapy; Z90.710 Acquired absence of both cervix and uterus; Z87.891 Personal history of nicotine dependence
CPT/HCPCS: 36415; 74177; 76830; 80048; 80053; 80061; 81001; 83605; 83690; 83735; 84100; 84132; 84443; 85025; 85610; 85730; 87040; 87077; 87086; 87088; 87186; 93005; 96374; 96375; 99285; A4216; C9113; J0360; J0696; J1335; J2405; J2550; J3475; J7030; J7040; J7512; Q9967

== ENCOUNTER 2024-04-21 16:43 | Emergency (ER) | payer MEDICARE ==
--- OUTSIDE RECORDS SUMMARY | 2024-04-21 16:46 | XMS REPORT | Continuity of Care Document ---
Author Name Unknown Address [address] [facility]. [address] [place] [address] [facility] Address [address] [facility] [address] [place] [address] Care Team Providers Care Truck Loader And Unloader Name Role Phone Kaylie Castrejon Attending Clinician Unavail able David Parra Attending Clinician Unavailable Manjinder Chow Attending Clinician Unavailable Basia Santillan Attending Clinician Jamil Johns Attending Clinician [place] Attending Clinician Unavailable Milagros Cintron Attending Clinician [phone] [place] Admitting Clinician Unavailable Payers Payer Name Policy Type Policy Number Effective Date Expirati on Date Source [facility] (MEDICARE REPLACEMENT O) [id number] 2023 00:00:00 Problems Condition Name Condition Details Condition Category Status Onset Date Resolution Date Last Treatment Date Treating Clinician Comments Source [id number] Gastro-eso phageal reflux disease with esophagiti s, without bleeding Problem [facility] [id number] Paresthesi a of skin Problem [facility] [id number] Pain, joint, knee, right Problem [facility] [id number] Ulcerative colitis with other complicati on, unspecifie d location Problem [facility] [id number] Gastric ulcer without hemorrhage or perforatio n, unspecifie d chronicity Problem [facility] [id number] Osteoarthr itis of multiple joints, unspecifie d osteoarthr itis type Problem [facility] Crohn's disease of large bowel Crohn's disease of colon with rectal bleeding Problem [facility] [id number] Gastro-eso phageal reflux disease without esophagiti s Problem [facility] [id number] 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 Problem [facility] [id number] Hypertrigl yceridemia Problem [facility] [id number] Unspecifie d internal derangemen t of right knee Problem [facility] [id number] Adnexal cyst Problem [facility] [id number] BMI 32.0-32.9, adult Problem [facility] [id number] Sleep apnea in adult Problem [facility] [id number] Other obesity due to excess calories Problem [facility] 527194177 Acute diverticul itis Problem [facility] [id number] Hepatic cyst Problem [facility] [id number] Ulcerative pancolitis with complicati on Problem [facility] [id number] Adrenal cyst Problem [facility] [id number] Essential hypertensi on Problem [facility] 8402080 Hypophosph atemia Problem [facility] Allergies, Adverse Reactions, Alerts Allergy Name Allergy Type Status Severity Reaction(s) Onset Date Inactive Date Treating Clinician Comments Source codeine codeine Active hives [facility] [id number] Drug allergy Active anaphylaxis [facility] Social History Social Habit Start Date Stop Date Quantity Comments Source History of Tobacco Use [facility] Sex Assigned At [facility] Smoking Status Start Date Stop Date Source Former Smoker 2024-04-19 00:00:00 2024-04-19 00:00:00 [facility] Never Smoker [facility] Medications Ordered Medication Name Filled Medication Name Start Date Stop Date Current Medication? Ordering Clinician Indication Dosage Frequency Signature (SIG) Comments Components Source Pentasa 500 MG Pentasa 500 MG 04-19 00:00: 00 No 2{capsu les} QID Pentasa 500 MG Toprol XL 50 MG Toprol XL 50 MG No QD Toprol XL 50 MG Skyrizi 360 MG/2.4ML Skyrizi 360 MG/2.4ML No Skyrizi 360 MG/2.4ML Pantoprazol e Sodium 40 MG Pantoprazol e Sodium 40 MG No 1{table t} QD Pantoprazo le Sodium 40 MG traMADol HCl 50 MG traMADol HCl 50 MG No 1{table t_as_ne eded} QD traMADol HCl 50 MG Vital Signs Vital Name Observation Time Observation Value Comments S casie height 2024-04-19 10:00:00 58 [in_i] Commo n [facility] weight 2024-04-19 10:00:00 154 [lb_av] Comm on [facility] temperature 2024-04-19 10:00:00 98.3 [degF] Com [facility] bmi 2024-04-19 10:00:00 32.18 kg/m2 Comm on [facility] oximetry 2024-04-19 10:00:00 98 % Commo n [facility] respiratory rate 2024-04-19 10:00:00 18 /min [facility] blood pressure systolic 2024-04-19 10:00:00 134 mm[Hg] Common [facility] blood pressure diastolic 2024-04-19 10:00:00 80 mm[Hg] Common [facility] height 2024-02-28 13:00:00 58 [in_i] Commo n [facility] weight 2024-02-28 13:00:00 157.4 [lb_av] Co mmon [facility] temperature 2024-02-28 13:00:00 97.2 [degF] Com mon [facility] bmi 2024-02-28 13:00:00 32.89 kg/m2 Comm on [facility] oximetry 2024-02-28 13:00:00 97 % Commo n [facility] respiratory rate 2024-02-28 13:00:00 18 /min [facility] blood pressure systolic 2024-02-28 13:00:00 125 mm[Hg] [facility] blood pressure diastolic 2024-02-28 13:00:00 67 mm[Hg] [facility] height 2024-02-08 09:40:00 58 [in_i] Commo n [facility] weight 2024-02-08 09:40:00 159.0 [lb_av] Co [facility] temperature 2024-02-08 09:40:00 97.3 [degF] Com [facility] bmi 2024-02-08 09:40:00 33.23 kg/m2 Comm on [facility] oximetry 2024-02-08 09:40:00 96 % Commo n [facility] respiratory rate 2024-02-08 09:40:00 18 /min [facility] blood pressure systolic 2024-02-08 09:40:00 120 mm[Hg] [facility] blood pressure diastolic 2024-02-08 09:40:00 74 mm[Hg] Common [facility] height 2024-02-08 09:30:00 58 [in_i] Commo n [facility] weight 2024-02-08 09:30:00 159.0 [lb_av] Co [facility] temperature 2024-02-08 09:30:00 97.3 [degF] Com [facility] bmi 2024-02-08 09:30:00 33.23 kg/m2 Comm on [facility] oximetry 2024-02-08 09:30:00 96 % Commo n [facility] respiratory rate 2024-02-08 09:30:00 18 /min Common [facility] blood pressure systolic 2024-02-08 09:30:00 120 mm[Hg] [facility] blood pressure diastolic 2024-02-08 09:30:00 74 mm[Hg] [facility] height 2023-10-14 16:00:00 58 [in_i] Commo n [facility] weight 2023-10-14 16:00:00 161.6 [lb_av] Co on [facility] temperature 2023-10-14 16:00:00 97.4 [degF] Com [facility] bmi 2023-10-14 16:00:00 33.77 kg/m2 Comm on [facility] oximetry 2023-10-14 16:00:00 98 % Commo n [facility] blood pressure systolic 2023-10-14 16:00:00 138 mm[Hg] [facility] blood pressure diastolic 2023-10-14 16:00:00 80 mm[Hg] Common [facility] height 2023-08-10 08:50:00 58 [in_i] Commo n [facility] weight 2023-08-10 08:50:00 162.6 [lb_av] Co on [facility] temperature 2023-08-10 08:50:00 97.3 [degF] Com [facility] bmi 2023-08-10 08:50:00 33.98 kg/m2 Comm on [facility] oximetry 2023-08-10 08:50:00 97 % Commo n [facility] respiratory rate 2023-08-10 08:50:00 18 /min Common [facility] blood pressure systolic 2023-08-10 08:50:00 123 mm[Hg] [facility] blood pressure diastolic 2023-08-10 08:50:00 64 mm[Hg] Common [facility] height 2023-07-06 15:10:00 58 [in_i] Commo n [facility] weight 2023-07-06 15:10:00 160.0 [lb_av] Co [facility] temperature 2023-07-06 15:10:00 97.9 [degF] Com [facility] bmi 2023-07-06 15:10:00 33.44 kg/m2 Comm on [facility] oximetry 2023-07-06 15:10:00 97 % Commo n [facility] respiratory rate 2023-07-06 15:10:00 17 /min [facility] blood pressure systolic 2023-07-06 15:10:00 130 mm[Hg] Common [facility] blood pressure diastolic 2023-07-06 15:10:00 71 mm[Hg] [facility] height 2023-07-06 15:10:00 58 [in_i] Commo n [facility] weight 2023-07-06 15:10:00 160.0 [lb_av] Co [facility] temperature 2023-07-06 15:10:00 97.9 [degF] Com [facility] bmi 2023-07-06 15:10:00 33.44 kg/m2 Comm on [facility] oximetry 2023-07-06 15:10:00 97 % Commo n [facility] respiratory rate 2023-07-06 15:10:00 17 /min Common [facility] blood pressure systolic 2023-07-06 15:10:00 130 mm[Hg] [facility] blood pressure diastolic 2023-07-06 15:10:00 71 mm[Hg] Common [facility] height 2023-06-14 08:40:00 58 [in_i] Commo n [facility] weight 2023-06-14 08:40:00 161.8 [lb_av] Co mmon [facility] temperature 2023-06-14 08:40:00 97.9 [degF] Com mon [facility] bmi 2023-06-14 08:40:00 33.81 kg/m2 Comm on [facility] oximetry 2023-06-14 08:40:00 98 % Commo n [facility] respiratory rate 2023-06-14 08:40:00 18 /min Common [facility] blood pressure systolic 2023-06-14 08:40:00 135 mm[Hg] Common [facility] blood pressure diastolic 2023-06-14 08:40:00 63 mm[Hg] Common [facility] height 2023-05-25 15:10:00 58 [in_i] Commo n [facility] weight 2023-05-25 15:10:00 157 [lb_av] Comm on [facility] bmi 2023-05-25 15:10:00 32.81 kg/m2 Comm on [facility] height 2023-04-01 08:40:00 58 [in_i] Commo n [facility] weight 2023-04-01 08:40:00 156.8 [lb_av] Co mmon [facility] temperature 2023-04-01 08:40:00 97.5 [degF] Com [facility] bmi 2023-04-01 08:40:00 32.77 kg/m2 Comm on [facility] oximetry 2023-04-01 08:40:00 96 % Commo n [facility] respiratory rate 2023-04-01 08:40:00 17 /min Common [facility] blood pressure systolic 2023-04-01 08:40:00 118 mm[Hg] [facility] blood pressure diastolic 2023-04-01 08:40:00 65 mm[Hg] [facility] Encounters Start Date/Time End Date/Time Encounter Type Admission Type Attending Clinicians Care Facility Care Department Encounter ID Source 2024-04-18 16:11:00 Outpatient Kaylie Castrejon [facility] [id number] [facility] 2024-04-17 09:29:00 Outpatient Kayile Castrejon [facility] [id number] [facility] 2024-04-14 13:33:00 Outpatient Kaylie Castrejon [facility] [id number] [facility] 2024-04-07 11:20:00 Outpatient Parra, David [facility] [id number] [facility] 2024-02-24 15:58:00 Outpatient Parra, David [facility] [id number] [facility] 2024-02-07 08:29:00 Outpatient Parra, David [facility] [id number] [facility] 2023-08-06 08:55:00 Outpatient Parra, David [facility] [id number] [facility] 2023-07-02 10:11:00 Outpatient Parra, David [facility] [id number] [facility] 2023-06-29 16:22:00 Outpatient Parra, David [facility] [id number] [facility] 2023-04-01 07:38:00 Outpatient ChowWooe [facility]C ST[facility] [id number] [facility] 2023-03-09 13:55:00 Outpatient Chow Avnee [facility] [id number] [facility] 2023-02-11 15:48:00 Outpatient [facility] [id number] [facility] 2023-02-09 13:29:00 Outpatient [facility] [id number] [facility] 2023-01-19 11:47:00 Outpatient [facility] [id number] [facility] 2024-04-19 00:00:00 2024-04-19 00:00:00 OFFICE VISIT NEW PT LEVEL 4 [facility] ST[facility] [id number] [facility] 2024-04-19 00:00:00 2024-04-19 00:00:00 (TEL) [facility] ST[facility] [id number] [facility] 2024-04-14 00:00:00 2024-04-14 00:00:00 (TEL) STL[facility]C STL[facility]C [id number] [facility] 2024-04-07 00:00:00 2024-04-07 00:00:00 (TEL) [facility]C ST[facility] [id number] [facility] 2024-03-03 14:00:00 2024-03-03 14:30:00 Annual D2Me Basia Santillan [id number] [facility] 2024-02-29 00:00:00 2024-02-29 00:00:00 (TEL) STLMLC STL[facility]C [id number] [facility] 2024-02-28 00:00:00 2024-02-28 00:00:00 (TEL) STL[facility]C STL[facility]C [id number] [facility] 2024-02-28 00:00:00 2024-02-28 00:00:00 OFFICE VISIT ESTAB PT LEVEL 4 [facility] ST[facility] [id number] [facility] 2024-02-22 00:00:00 2024-02-22 00:00:00 (TEL) STLMLC STL[facility]C [id number] [facility] 2024-02-08 00:00:00 2024-02-08 00:00:00 SUB ANNUAL [facility] WELLNESS VISIT STL[facility] STL[facility]C [id number] [facility] 2024-02-08 00:00:00 2024-02-08 00:00:00 OFFICE VISIT ESTAB PT LEVEL 4 [facility] ST[facility] [id number] [facility] 2024-02-08 00:00:00 2024-02-08 00:00:00 (TEL) STLMLC STL[facility]C [id number] [facility] 2023-10-21 00:00:00 2023-10-21 00:00:00 (TEL) STL[facility]C STL[facility]C [id number] [facility] 2023-10-18 00:00:00 2023-10-18 00:00:00 (TEL) STLMLC STL[facility]C [id number] [facility] 2023-10-14 00:00:00 2023-10-14 00:00:00 OFFICE VISIT ESTAB PT LEVEL 3 [facility] ST[facility]C [id number] [facility] 2023-10-14 00:00:00 2023-10-14 00:00:00 (TEL) STLMLC STL[facility]C [id number] [facility] 2023-08-24 00:00:00 2023-08-24 00:00:00 (TEL) STLMLC ST[facility]C [id number] [facility] 2023-08-10 00:00:00 2023-08-10 00:00:00 OFFICE VISIT ESTAB PT LEVEL 4 [facility] STL[facility]C [id number] [facility] 2023-08-10 00:00:00 2023-08-10 00:00:00 (TEL) STLMLC STL[facility]C [id number] [facility] 2023-08-06 00:00:00 2023-08-06 00:00:00 (TEL) STLMLC STL[facility]C [id number] [facility] 2023-07-06 00:00:00 2023-07-06 00:00:00 SUB ANNUAL [facility] WELLNESS VISIT STLMLC STLMLC [id number] [facility] 2023-07-06 00:00:00 2023-07-06 00:00:00 OFFICE VISIT ESTAB PT LEVEL 4 [facility] ST[facility] [id number] [facility] 2023-06-14 00:00:00 2023-06-14 00:00:00 OFFICE VISIT ESTAB PT LEVEL 3 [facility] STL[facility]C [id number] [facility] 2023-06-09 00:00:00 2023-06-09 00:00:00 (TEL) STLMLC STL[facility]C [id number] [facility] 2023-05-28 00:00:00 2023-05-28 00:00:00 (TEL) STLMLC STLMLC [id number] [facility] 2023-05-25 00:00:00 2023-05-25 00:00:00 OFFICE VISIT ESTAB PT LEVEL 3 [facility] ST[facility] [id number] [facility] 2023-05-25 00:00:00 2023-05-25 00:00:00 (TEL) STLMLC STL[facility]C [id number] [facility] 2023-05-19 00:00:00 2023-05-19 00:00:00 (TEL) STLMLC STL[facility]C [id number] [facility] 2023-04-01 00:00:00 2023-04-01 00:00:00 OFFICE VISIT NEW PT LEVEL 3 [facility] STL[facility]C [id number] [facility] 2023-03-19 11:30:00 2023-03-19 12:00:00 Care Coordinati on Non Billable Jamil Johns 2.16.840. [id number] [facility] 2023-03-12 00:00:00 2023-03-12 00:00:00 Outpatient V_Valzulma [facility] [id number] [facility] 2023-02-12 20:00:00 2023-02-12 21:00:00 CAV Milagros Cintron [id number]. [id number] [id number] [facility] 2023-02-12 00:00:00 2023-02-12 00:00:00 Outpatient V_Abdulaziz [facility] [id number] [facility] 2022-12-31 00:00:00 2022-12-31 00:00:00 Outpatient [facility] [id number] [facility] 2019-04-25 14:30:00 2019-04-25 14:30:00 Outpatient [facility] [id number] [facility] Results Test Description Test Time Test Comments Results Result Co mments Source HEMOGLOBIN [id number] 00:00:00* Test Item Value Reference Range Interpretation Comme nts HEMOGLOBIN A1c (test code = 4548-4) 6.1 % See_Comment H [Automated [employer]] The system which generated this result transmitted reference range: 4.2-5.6 %. The reference range was not used to interpret this result as normal/abnormal. TSH REFLEX TO FREE [id number] 00:00:00* Test Item Value Reference Range Interpretation Comme nts TSH REFLEX TO FREE T4 (test code = 98178-0) 2.580 UIU/ML See_Comment [Automated [employer]] The system which generated this result transmitted [...] NEGATIVE NEGATIVE OCCULT BLOOD (test code = 87947-4) NEGATIVE NEGATIVE pH (test code = 5803-2) 5.0 5.0-9.0 PROTEIN (test code = 07819-5) NEGATIVE NEGATIVE SPECIFIC GRAVITY (test code = 5811-5) 1.030 1.005-1.035 UROBILINOGEN (test code = 09367-2) 0.2 MG/DL See_Comment [Automated messa ge] The system which generated this result transmitted reference range: <=2.0 MG/DL. The reference range was not used to interpret this result as normal/abnormal. LIPID PANEL WITH REFLEX DIRECT [id number] 00:00:00* Test Item Value Reference Range Interpretation Comme nts CALC LDL CHOL (test code = 45538-3) 77 MG/DL See_Comment [Automated messa ge] The [...] normal/abnormal. RISK RATIO LDL/HDL (test code = 40991-8) 1.35 RATIO See_Comment [Automated message] The system [...] interpret this result as normal/abnormal. COMPREHENSIVE METABOLIC [id number] 00:00:00* Test Item Value Reference Range Interpretation [...] result as normal/abnormal. CALCIUM (test code = 45705-3) 9.2 MG/DL See_Comment [Automated messa ge] The [...] as normal/abnormal. CALC GLOBULIN (test code = 45432-8) 1.9 G/DL See_Comment [Automated messa ge] The [...] normal/abnormal. eGFR (2020 CKD-EPI) (test code = 62778-3) 82 ML/MIN/1.73 See_Comment [Automated messa ge] The [...] code = 2951-2) 144 MEQ/L See_Comment [Automated [employer] ge] The system which generated this result transmitted reference range: 133-146 MEQ/L. The reference range was not used to interpret this result as normal/abnormal.
--- NOTE | 2024-04-21 17:41 | ER ---
Nurse's Notes [facility] Name: Andreina Brock Age: 73 yrs Sex: Female : 1950 Arrival Date: 04/21/2024 Time: 16:43 Bed 12 Private MD: David Parra Diagnosis: Encounter for adjustment and management of vascular access device-midline Presentation: 04/21 17:05 Chief complaint: Patient states: pt has a midline to left upper arm and is worried it's as6 not in the right place. Coronavirus screen: At this time, the client does not indicate any symptoms associated with coronavirus-19. Ebola Screen: No symptoms or risks identified at this time. Initial Sepsis Screen: Does the patient meet any 2 criteria? No. Patient's initial sepsis screen is negative. Does the patient have a suspected source of infection? No. Patient's initial sepsis screen is negative. Risk Assessment: Do you want to hurt yourself or someone else? Patient reports no desire to harm self or others. Onset of symptoms was April 21, 2024. 17:05 Acuity: SILVANA 4 as6 17:05 Method Of Arrival: Ambulatory as6 Historical: - Allergies: 16:46 Cipro; ll1 16:46 Codeine; ll1 16:46 Metoprolol Tartrate; ll1 16:46 PENICILLINS; ll1 - PMHx: 16:46 Arthritis; Crohn's Disease; Diverticulitis; ulcerative colitis (Diverticulitis); ll1 - PSHx: 16:46 Total abdominal hysterectomy; Lithotripsy; ll1 - Immunization history:: Adult Immunizations. - Infectious Disease History:: Denies. - Social history:: Smoking status: unknown. Screenin:44 [facility] ED Fall Risk Assessment (Adult) History of falling in the last 3 months, as6 including since admission No falls in past 3 months (0 pts) Confusion or Disorientation No (0 pts) Intoxicated or Sedated No (0 pts) Impaired Gait No (0 pts) Mobility Assist Device Used No (0 pt) Altered Elimination No (0 pt) Score/Fall Risk Level 0 - 2 = Low Risk Oriented to surroundings, Maintained a safe environment, Educated pt \T\ family on fall prevention, incl call for assistance when getting out of bed, Assessed \T\ reinforced patient's understanding of fall precautions. Abuse screen: Denies threats or abuse. Denies injuries from another. Nutritional screening: No deficits noted. Tuberculosis screening: No symptoms or risk factors identified. Assessment: 17:43 General: Appears in no apparent distress. Behavior is calm, cooperative. Pain: Denies as6 pain. Vital Signs: 17:05 BP 149 / 65; Pulse 71; Resp 18; Temp 98.4; Pulse Ox 99% ; Weight 68.95 kg; Height 4 ft. as6 11 in. ; Pain 0/10; 17:05 Body Mass Index 30.70 (68.95 kg, 149.86 cm) as6 17:05 Pain Scale: Adult as6 ED Course: 16:44 Patient arrived in ED. rg4 16:45 Jennifer Dash FNP-C is [facility]. kb 16:45 Yuniel Jean MD is Attending Physician. kb 16:45 David Parra DO is Private Physician. rg4 16:46 Billy Bosch, GILDARDO is Primary Nurse. as6 16:46 Arm band placed on Patient placed in an exam room, on a stretcher. ll1 17:07 Triage completed. as6 17:44 Bed in low position. Call light in reach. Provided Education on: follow up. as6 17:44 No provider procedures requiring assistance completed. Accessed peripheral vein via as6 ultrasound, utilizing dynamic ultrasound technique using per hospital protocol. Clean \T\ dry. Dressing intact. Good blood return. Flushes easily. 18g 10cm midline to right upper arm . IV discontinued, intact, bleeding controlled, No redness/swelling at site. Pressure dressing applied. Administered Medications: No medications were administered Medication: 17:44 VIS not applicable for this client. as6 Outcome: 17:40 Discharge ordered by . kb 17:45 Discharged to home ambulatory, with significant other, as6 17:45 Condition: stable 17:45 Discharge instructions given to patient, Instructed on discharge instructions, follow up and referral plans. Demonstrated understanding of instructions, follow-up care, 17:45 Patient left the ED. as6 Signatures: Jennifer Dash FNP-C FNP-Ckb Garcia, Rubi rg4 Juany Varner RN RN ll1 Billy Bosch RN RN as6
--- NOTE | 2024-04-21 17:41 | EDPHYS ---
Physician Documentation [facility] Name: Andreina Brock Age: 73 yrs Sex: Female : 1950 Arrival Date: 04/21/2024 Time: 16:43 Bed 12 Private MD: David Parra ED Physician Yuniel Jean HPI: 04/21 18:08 This 73 yrs old Female presents to ER via Ambulatory with complaints of Midline Problem.kb 18:08 Pt is a 73 year old female who presents to have her midline checked. States she is on kb day 5 of 13 of antibiotics. She accidentally pulled on the midline today and has had some discomfort since then. . Historical: - Allergies: 16:46 Cipro; ll1 16:46 Codeine; ll1 16:46 Metoprolol Tartrate; ll1 16:46 PENICILLINS; ll1 - PMHx: 16:46 Arthritis; Crohn's Disease; Diverticulitis; ulcerative colitis (Diverticulitis); ll1 - PSHx: 16:46 Total abdominal hysterectomy; Lithotripsy; ll1 - Immunization history:: Adult Immunizations. - Infectious Disease History:: Denies. - Social history:: Smoking status: unknown. ROS: 18:08 Constitutional: As per HPI kb Exam: 18:08 Constitutional: This is a well developed, well nourished patient who is awake, alert, kb and in no acute distress. Head/Face: Normocephalic, atraumatic. ENT: Moist Mucous membranes Cardiovascular: Regular rate Respiratory: Respirations even and unlabored. No increased work of breathing. Talking in full sentences Abdomen/GI: Soft, non-tender. No distention Skin: Warm, dry with normal turgor. Normal color. MS/ Extremity: Pulses equal, no cyanosis. Neurovascular intact. Full, normal range of motion. Neuro: Awake and alert, GCS 15, oriented to person, place, time, and situation. Moves all extremities. Normal gait. Vital Signs: 17:05 BP 149 / 65; Pulse 71; Resp 18; Temp 98.4; Pulse Ox 99% ; Weight 68.95 kg; Height 4 ft. as6 11 in. ; Pain 0/10; 17:05 Body Mass Index 30.70 (68.95 kg, 149.86 cm) as6 17:05 Pain Scale: Adult as6 MDM: 16:45 Patient medically screened. kb 17:08 Data reviewed: vital signs, nurses notes. kb 18:09 Differential diagnosis: midline displacement. Historians other than the Patient: danitza Spouse/Significant Other: spouse. Counseling: I had a detailed discussion with the patient and/or guardian regarding the historical points, exam findings, and any diagnostic results supporting the discharge/admit diagnosis, the need for outpatient follow up, a family practitioner, to return to the emergency department if symptoms worsen or persist or if there are any questions or concerns that arise at home. ED course: Midline flushes without resistance, but unable to aspirate blood. Discussed observing the current midline vs placing a new one. New midline placed.. 04/21 17:09 Order name: Melissa. Order: place new midline; Complete Time: 17:43 kb Administered Medications: No medications were administered Disposition Summary: 04/21/24 17:40 Discharge Ordered Notes: Location: Home kb Condition: Stable kb Diagnosis - Encounter for adjustment and management of vascular access device - midline kb Followup: kb - With: Emergency Department - When: As needed - Reason: Worsening of condition Followup: kb - With: Private Physician - When: 2 - 3 days - Reason: Recheck today's complaints, Continuance of care, Re-evaluation by your physician Discharge Instructions: - Discharge Summary Sheet kb - Midline Catheter kb Forms: - Medication Reconciliation Form kb - Antibiotic Education kb - Prescription Opioid Use kb - Patient Portal Instructions kb - Leadership Thank You Letter kb Signatures: Jennifer Dash FNP-C FNP-Juany Ordonez RN RN ll1 Billy Bosch RN RN as6
[2024-04-21 17:59] VITALS: BP 149/65; TEMP 98.4; O2SAT 99
== END 2024-04-21 17:45 | disposition home or self-care (01) ==
LOC: ER 16:43
DX: Z45.2 Encounter for adjustment and management of vascular access device (principal)
CPT/HCPCS: 99284

== ENCOUNTER 2024-11-30 18:18 | Emergency (ER) | payer MEDICARE, OTHER ==
--- NOTE | 2024-11-30 21:28 | RAD REPORT ---
EXAMINATION: ONE VIEW CHEST XR CLINICAL INDICATION: Female, 74 years old.,vomiting TECHNIQUE: Frontal chest projection is submitted. Examination is limited by patient positioning and t echnique. COMPARISON: 01/04/2022 FINDINGS: Streaky right infrahilar opacities are stable, may suggest atelectasis or scarring. The lungs are oth erwise grossly clear although suboptimal inspiratory effort somewhat limits evaluation. No pneumothorax or sizable effusion. The heart is normal in size. Mediastinal contours are unremarkable. IMPRESSION: No acute intrathoracic abnormalities. Stable findings as above.
[2024-11-30] MEDS ORDERED: FENTANYL CITR 100 MCG/2 ML ONE (23:42)
[2024-11-30] MEDS ORDERED: PROMETHAZINE INJ 25 MG/ML AMP ONE (23:42)
[2024-11-30] MEDS ORDERED: DICYCLOMINE HCL 20 MG/2 ML AMP IM ONE (23:42)
[2024-11-30] MEDS ORDERED: NA CHLORIDE 0.9% 500 ML ONE (23:56)
[2024-11-30] MEDS ORDERED: ONDANSETRON 4 MG/2 ML VIAL ONE (23:56)
[2024-12-01 00:25] LABS: Absolute Lymphocytes (CBC) 1.1 K/uL (0.7-4.9); Absolute Monocytes 0.5 K/uL (0.1-1.3); Basophils % 0.2 % (0-1.3); Eosinophils % 0.3 % (0-4.4); Hematocrit 41.9 % (36.0-45.0); Hemoglobin 14.2 g/dL (12.0-15.0); MCH 30.8 pg (27.0-35.0); MCHC 33.9 g/dL (32.0-36.0); MCV 90.8 fL (80-100); MPV 8.7 fL (7.6-11.3); Monocytes % 3.9 % (3.3-12.3); Neutrophils % 87.6 % (41.7-73.7); Platelets 567 thou/uL (152-406); RBC Red Blood Cell Count 4.62 M/uL (3.86-4.86); Red Cell Distribution Width 13.7 % (12.1-15.2)
--- NOTE | 2024-12-01 01:02 | RAD REPORT ---
EXAM: CT Abdomen and Pelvis Without Intravenous Contrast CLINICAL HISTORY: The patient is 74 years old and is Female; vomiting TECHNIQUE: Axial computed tomography images of the abdomen and pelvis without intravenous contrast. Sagittal and coronal reformatted images were created and reviewed. This CT exam was performed using one or more of the following dose reduction techniques: automated exposure control, adjustment of the m A and/or kV according to patient size, and/or use of iterative reconstruction technique. COMPARISON: CT April 10, 2024. FINDINGS: LUNG BASES: Unremarkable. No mass. No consolidation. ABDOMEN: LIVER: The liver is enlarged and fatty. GALLBLADDER AND BILE DUCTS: No calcified stones. No ductal dilation. PANCREAS: The pancreas is atrophic. No ductal dilation. SPLEEN: Unremarkable. ADRENALS: Unremarkable. No mass. KIDNEYS AND URETERS: No obstructing stones. No hydronephrosis. No perinephric fluid. STOMACH AND BOWEL: The stomach is distended with food contents. The majority of the small bowel i s fluid-filled and dilated. A right lower quadrant ileostomy is present. The small bowel leading to the ileostomy is mildly inflamed. Postsurgical change of the sigmoid colon is present. The majority colon is decompressed. A few scattered colonic diverticula are noted. PELVIS: APPENDIX: The appendix is fluid-filled measuring 1.1 cm. There is no surrounding inflammation or mucosal thickening. The appearance of the appendix is unchanged from prior exam. BLADDER: The bladder is decompressed. No stones. REPRODUCTIVE: The patient is status post hysterectomy. ABDOMEN and PELVIS: INTRAPERITONEAL SPACE: Trace free fluid is present within the pelvis. No free air. BONES/JOINTS: No acute fracture. SOFT TISSUES: Subcutaneous air is present within the soft tissues of the right abdominal wall. VASCULATURE: Calcified phleboliths are present within the pelvis. No abdominal aortic aneurysm. LYMPH NODES: Unremarkable. No enlarged lymph nodes. IMPRESSION: 1. Findings suggest small bowel ileus/developing obstruction secondary to inflamed distal small bow el leading to the right lower quadrant ileostomy. 2. Persistent fluid-filled and dilated appendix without surrounding stranding or mucosal thickening . 3. Subcutaneous air within the soft tissues of the right lateral abdominal wall may be postoperativ e. No drainable fluid collection. Electronically signed by: Jessa Douglass MD 12/01/2024 12:58 AM [facility] Due to temporary technical issues with the PACS/Powerscribe reporting system, reports are being ella d by the in-house radiologist without review as a courtesy to ensure prompt reporting the interpreting radiologist is fully responsible for the content of the report. Transcribed Date/Time: 12/01/2024 1:01 AM
--- NOTE | 2024-12-01 01:10 | ER ---
Nurse's Notes [facility] Name: Andreina Brock Age: 74 yrs Sex: Female : 1950 Arrival Date: 11/30/2024 Time: 18:18 Bed 2 Private MD: Diagnosis: Nausea with vomiting, unspecified;Ileus, unspecified Presentation: 11/30 18:54 Chief complaint: Patient states: Illeostomy placed 11/22. Vomiting began 1500 today, pt ld1 reports feeling clammy. Coronavirus screen: At this time, the client does not indicate any symptoms associated with coronavirus-19. Ebola Screen: No symptoms or risks identified at this time. Initial Sepsis Screen: Does the patient meet any 2 criteria? No. Patient's initial sepsis screen is negative. Does the patient have a suspected source of infection? No. Patient's initial sepsis screen is negative. Risk Assessment: Do you want to hurt yourself or someone else? Patient reports no desire to harm self or others. Onset of symptoms was November 30, 2024 at 18:56. 18:54 Method Of Arrival: Wheelchair ld1 18:54 Acuity: SILVANA 3 ld1 Triage Assessment: 18:56 General: Appears in no apparent distress. comfortable, Behavior is calm, cooperative, ld1 appropriate for age. Pain: Denies pain. EENT: No signs and/or symptoms were reported regarding the EENT system. Neuro: Level of Consciousness is awake, alert, obeys commands, Oriented to person, place, time, situation. Cardiovascular: Capillary refill < 3 seconds Patient's skin is warm and dry. Respiratory: Airway is patent Respiratory effort is even, unlabored. GI: Abdomen is round non-distended, Reports nausea, vomiting. : No signs and/or symptoms were reported regarding the genitourinary system. Derm: No signs and/or symptoms reported regarding the dermatologic system. Musculoskeletal: No signs and/or symptoms reported regarding the musculoskeletal system. Historical: - Allergies: 18:56 Cipro; ld1 18:56 Codeine; ld1 18:56 Metoprolol Tartrate; ld1 18:56 PENICILLINS; ld1 - PMHx: 18:56 Arthritis; Crohn's Disease; Diverticulitis; ulcerative colitis (Diverticulitis); ld1 - PSHx: 18:56 Lithotripsy; Total abdominal hysterectomy; Illeostomy (Total abdominal hysterectomy); ld1 - Immunization history:: Adult Immunizations up to date. - Infectious Disease History:: Denies. - Social history:: Smoking status: Patient denies any tobacco usage or history of. Screenin:[facility] ED Fall Risk Assessment (Adult) History of falling in the last 3 months, al5 including since admission No falls in past 3 months (0 pts) Confusion or Disorientation No (0 pts) Intoxicated or Sedated No (0 pts) Impaired Gait No (0 pts) Mobility Assist Device Used No (0 pt) Altered Elimination No (0 pt) Score/Fall Risk Level 0 - 2 = Low Risk Oriented to surroundings, Maintained a safe environment, Hourly rounding (assess needs \T\ fall precautionary measures) done. Abuse screen: Denies threats or abuse. Denies injuries from another. Nutritional screening: No deficits noted. Tuberculosis screening: No symptoms or risk factors identified. Assessment: 22:52 General: Appears in no apparent distress. uncomfortable, Behavior is calm, cooperative. al5 Pain: Complains of pain in abdomen. Neuro: Level of Consciousness is awake, alert, obeys commands, Oriented to person, place, time, situation. Cardiovascular: Capillary refill < 3 seconds Patient's skin is warm and dry. Respiratory: Airway is patent Respiratory effort is even, unlabored, Respiratory pattern is regular, symmetrical. GI: Ileostomy site is intact. Reports lower abdominal pain, upper abdominal pain, nausea, vomiting. : No signs and/or symptoms were reported regarding the genitourinary system. EENT: No signs and/or symptoms were reported regarding the EENT system. Derm: Skin is intact, is healthy with good turgor, Skin is pink, warm \T\ dry. normal. Musculoskeletal: No signs and/or symptoms reported regarding the musculoskeletal system. 12/01 00:00 Reassessment: Patient appears in no apparent distress at this time. No changes from al5 previously documented assessment. Patient and/or family updated on plan of care and expected duration. Pain level reassessed. Patient is alert, oriented x 3, equal unlabored respirations, skin warm/dry/pink. 01:07 Reassessment: Patient appears in no apparent distress at this time. No changes from al5 previously documented assessment. Patient and/or family updated on plan of care and expected duration. Pain level reassessed. Patient is alert, oriented x 3, equal unlabored respirations, skin warm/dry/pink. ileostomy bag and site cleaned and changed, patient tolerated well. 02:52 Reassessment: Patient appears in no apparent distress at this time. No changes from al5 previously documented assessment. Patient and/or family updated on plan of care and expected duration. Pain level reassessed. Patient is alert, oriented x 3, equal unlabored respirations, skin warm/dry/pink. Vital Signs: 11/30 18:54 BP 101 / 76; Pulse 83; Resp 18; Temp 98.3(O); Pulse Ox 98% on R/A; Weight 63.5 kg; ld1 Height 4 ft. 11 in. ; Pain 0/10; 12/01 00:49 BP 116 / 83; Pulse 70; Resp 18 S; Pulse Ox 100% on R/A; br2 02:00 BP 126 / 74; Pulse 66; Resp 18 S; Pulse Ox 97% on R/A; br2 02:00 BP 109 / 96; Pulse 78; Resp 18; Pulse Ox 98% ; br2 11/30 18:54 Body Mass Index 28.28 (63.50 kg, 149.86 cm) ld1 11/30 18:54 Pain Scale: Adult ld1 ED Course: 11/30 18:22 Patient arrived in ED. sj2 18:56 Triage completed. ld1 18:56 Arm band placed on right wrist. ld1 19:20 Yuniel Edmond PA is PHCP. cp 19:20 Doe Ren MD is Attending Physician. cp 21:15 XRAY Chest (1 view) In Process Unspecified. EDMS 21:24 EKG done, by ED staff. hw 22:49 Kiana Mcclure, GILDARDO is Primary Nurse. al5 22:51 No provider procedures requiring assistance completed. Missed attempt(s): 22 gauge in al5 left forearm. Bleeding controlled, band aid applied, catheter tip intact. 22:52 Patient has correct armband on for positive identification. Bed in low position. Call al5 light in reach. Side rails up X2. Provided Education on: plan of care. 23:54 Vijay Hills MD is Attending Physician. cp 12/01 00:05 Inserted saline lock: 24 gauge in left hand, using aseptic technique. Blood collected. kl Flushed with 10 mL NS. 00:19 CT Abd/Pelvis - Without Contrast In Process Unspecified. EDMS 01:14 initiated transfer spoke with Wan. vk 01:50 patient was accepted to [facility] ER to Dr. Cochran per Basia Farrell at transfer vk center. Administered Medications: 11/30 23:55 Not Given (Physician Discretion): fentanyl (pf)25 mcg IM once cp 23:55 Not Given (Physician Discretion): [id number] mg IM once cp 23:56 CANCELLED (Physician Discretion): ondansetron 4 mg IVP once; over 2 minutes cp 12/01 00:05 Drug: NS 0.9% IV 500 ml 500 ml IV at 1 bolus once; to be given as a bolus over 30 kl minutes Volume: 500 ml; Route: IV; Rate: 1 bolus; Site: left hand; 01:25 Follow up: Response: No adverse reaction; IV Status: Completed infusion; IV Intake: al5 500ml 00:06 Drug: fentaNYL (PF) IVP 25 mcg IVP once Route: IVP; Site: left hand; al5 01:25 Follow up: Response: No adverse reaction; Pain is decreased al5 00:07 Drug: Ondansetron IVP 4 mg IVP once; over 2 minutes Route: IVP; Site: left hand; al5 01:25 Follow up: Response: No adverse reaction; Nausea is decreased al5 00:07 Drug: Dicyclomine IM 20 mg IM once Route: IM; Site: left gluteus; al5 01:25 Follow up: Response: No adverse reaction al5 01:05 Not Given (Patient Refused): [id number] mg IVP once; over 1 to 2 minutes al5 01:05 Not Given (Patient Refused): [id number] mg IVP once; dilute with 10 mL 0.9% NaCl; al5 give over 2 minutes 01:28 Drug: metroNIDAZOLE IVPB 500 mg 100 ml IVPB once over 30 mins Volume: 100 ml; Route: br2 IVPB; Infused Over: 30 mins; Site: left hand; 02:31 Follow up: Response: No adverse reaction; IV Status: Completed infusion; IV Intake: al5 100ml 02:47 Drug: cefOXitin IVPB 1 grams IVPB once over 30 mins; (mix in 50 mL NS) Route: IVPB; al5 Infused Over: 30 mins; Site: left hand; 02:52 Follow up: Response: No adverse reaction; IV Status: Infusion continued upon transfer al5 Medication: 11/30 22:52 VIS not applicable for this client. al5 Intake: 12/01 01:25 IV: 500ml; Total: 500ml. al5 02:31 IV: 100ml; Total: 600ml. al5 Outcome: 01:10 ER care complete, transfer ordered by MD. turner 03:02 Patient left the ED. vc1 Signatures: Dispatcher [employer] EDMS Shira Varner RN RN Yuniel Guzman PA PA cp Sims, Lauren RN RN ld1 Milagros Aragon RN RN vc1 Blossom Fernández Amanda, RN RN al5 Chelo Thomas RN RN br2 Heather Santos [facility]
--- NOTE | 2024-12-01 01:10 | EDPHYS ---
Physician Documentation [facility] Name: Andreina Brock Age: 74 yrs Sex: Female : 1950 Arrival Date: 11/30/2024 Time: 18:18 Bed 2 Private MD: ED Physician Vijay Hills HPI: 11/30 19:30 This 74 yrs old Female presents to ER via Wheelchair with complaints of Vomiting - POST cp PROCEDURE. 19:30 The patient presents to the emergency department with nausea, that is severe, vomiting, cp that is continuous, abdominal pain. Onset: The symptoms/episode began/occurred today. Possible causes: recent abdominal surgery with ileostomy on 11-22-[address] at [facility]. 19:30 Associated signs and symptoms: Pertinent negatives: constipation, fever, GI bleeding. cp 19:30 Severity of symptoms: in the emergency department the symptoms are unchanged despite cp home interventions. Historical: - Allergies: 18:56 Cipro; ld1 18:56 Codeine; ld1 18:56 Metoprolol Tartrate; ld1 18:56 PENICILLINS; ld1 - PMHx: 18:56 Arthritis; Crohn's Disease; Diverticulitis; ulcerative colitis (Diverticulitis); ld1 - PSHx: 18:56 Lithotripsy; Total abdominal hysterectomy; Illeostomy (Total abdominal hysterectomy); ld1 - Immunization history:: Adult Immunizations up to date. - Infectious Disease History:: Denies. - Social history:: Smoking status: Patient denies any tobacco usage or history of. ROS: 19:35 Constitutional: Positive for poor PO intake, Negative for fever, cp 19:35 Eyes: Negative for injury, pain, redness, and discharge, cp 19:35 Cardiovascular: Negative for chest pain, 19:35 Respiratory: Negative for cough, shortness of breath, wheezing, 19:35 Abdomen/GI: Positive for abdominal pain, nausea and vomiting, Negative for constipation, hematemesis, black/tarry stool, 19:35 : Negative for urinary symptoms, 19:35 Neuro: Negative for altered mental status, 19:35 All other systems are negative, Exam: 19:40 Constitutional: The patient appears in no acute distress, alert, awake, cp non-diaphoretic, non-toxic, well developed, well nourished, uncomfortable, 19:40 Head/Face: Normocephalic, atraumatic. cp 19:40 Eyes: Periorbital structures: appear normal, Conjunctiva: normal, no exudate, no injection, Sclera: no appreciated abnormality, Lids and lashes: appear normal, bilaterally, 19:40 ENT: External ear(s): are unremarkable, Nose: is normal, Mouth: Lips: moist, Oral mucosa: moist, Posterior pharynx: Airway: no evidence of obstruction, patent, 19:40 Neck: ROM/movement: is normal, is supple, without pain, no range of motions limitations, no meningismus, no nuchal rigidity, 19:40 Chest/axilla: Inspection: normal, 19:40 Cardiovascular: Rate: normal, Rhythm: regular, 19:40 Respiratory: the patient does not display signs of respiratory distress, Respirations: normal, no use of accessory muscles, no retractions, labored breathing, is not present, Breath sounds: are clear throughout, no decreased breath sounds, no stridor, no wheezing, 19:40 Abdomen/GI: Inspection: distension, that is mild, rlq ileostomy, Bowel sounds: active, all quadrants, Palpation: soft, in all quadrants, mild abdominal tenderness, in all quadrants, rebound tenderness, is not appreciated, involuntary guarding, is not appreciated, 19:40 Back: pain, is absent, ROM is normal, 19:40 Neuro: Orientation: to person, place \T\ time. Mentation: is normal, Motor: moves all fours, no focal deficits, 21:27 ECG was reviewed by the Attending Physician. cp Vital Signs: 18:54 BP 101 / 76; Pulse 83; Resp 18; Temp 98.3(O); Pulse Ox 98% on R/A; Weight 63.5 kg; ld1 Height 4 ft. 11 in. ; Pain 0/10; 12/01 00:49 BP 116 / 83; Pulse 70; Resp 18 S; Pulse Ox 100% on R/A; br2 02:00 BP 126 / 74; Pulse 66; Resp 18 S; Pulse Ox 97% on R/A; br2 02:00 BP 109 / 96; Pulse 78; Resp 18; Pulse Ox 98% ; br2 11/30 18:54 Body Mass Index 28.28 (63.50 kg, 149.86 cm) ld1 11/30 18:54 Pain Scale: Adult ld1 MDM: 11/30 19:20 Medical Screening Exam initiated cp 21:00 Differential diagnosis: gastritis, viral gastroenteritis, gastroenteritis, bowel cp obstruction, ileus, dehydration, electrolyte abnormality. 12/01 01:00 Data reviewed: vital signs, nurses notes, lab test result(s), radiologic studies, CT cp scan, I have discussed the patient's presentation/case with the attending Emergency Department Physician; and as a result, I will administer antibiotics transfer patient. 01:00 I considered the following discharge prescriptions or medication management in the emergency department Medications were administered in the Emergency Department. See MAR. Independent interpretation of the following test(s) in the Emergency Department EKG: See my EKG interpretation above. Care significantly affected by the following chronic conditions: colitis. Counseling: I had a detailed discussion with the patient and/or guardian regarding the historical points, exam findings, and any diagnostic results supporting the discharge/admit diagnosis, lab results, radiology results, the need to transfer to another facility, continuity of care. Response to treatment: the patient's symptoms have mildly improved after treatment. 01:39 ED course: consult with DR Acevedo, colorectal surgeon, who will consult. Patient to be transferred to [facility] with accepting physician of DR Cochran. 11/30 20:33 Order name: CBC with Diff 12/01 00:50 Interpretation: Normal except: WBC 13.70; PLT 567; SHYLA% 87.6; LYM% 8.0; NEUT A 12.0. 12/01 00:30 Order name: Manual Differential EDMS 11/30 20:33 Order name: XRAY Chest (1 view); Complete Time: 21:32 12/01 00:51 Interpretation: Report review. 11/30 23:44 Order name: CT Abd/Pelvis - Without Contrast 11/30 20:33 Order name: IV Saline Lock; Complete Time: 01:05 11/30 20:33 Order name: Labs collected and sent; Complete Time: 01:05 11/30 20:33 Order name: EKG - Nurse/Tech; Complete Time: 21:25 EC/23 21:27 Rate is 72 beats/min. Rhythm is regular. MT interval is normal. QRS interval is normal. cp QT interval is normal. T waves are Inverted in leads III, aVR. Interpreted by me. Reviewed by me. Administered Medications: 23:55 Not Given (Physician Discretion): fentanyl (pf)25 mcg IM once cp 23:55 Not Given (Physician Discretion): fxogmmiludse65 mg IM once cp 23:56 CANCELLED (Physician Discretion): ondansetron 4 mg IVP once; over 2 minutes cp 12/01 00:05 Drug: NS 0.9% IV 500 ml 500 ml IV at 1 bolus once; to be given as a bolus over 30 kl minutes Volume: 500 ml; Route: IV; Rate: 1 bolus; Site: left hand; 01:25 Follow up: Response: No adverse reaction; IV Status: Completed infusion; IV Intake: al5 500ml 00:06 Drug: fentaNYL (PF) IVP 25 mcg IVP once Route: IVP; Site: left hand; al5 01:25 Follow up: Response: No adverse reaction; Pain is decreased al5 00:07 Drug: Ondansetron IVP 4 mg IVP once; over 2 minutes Route: IVP; Site: left hand; al5 01:25 Follow up: Response: No adverse reaction; Nausea is decreased al5 00:07 Drug: Dicyclomine IM 20 mg IM once Route: IM; Site: left gluteus; al5 01:25 Follow up: Response: No adverse reaction al5 01:05 Not Given (Patient Refused): nhjslyombckirr34 mg IVP once; over 1 to 2 minutes al5 01:05 Not Given (Patient Refused): gcdefczqga63 mg IVP once; dilute with 10 mL 0.9% NaCl; al5 give over 2 minutes 01:28 Drug: metroNIDAZOLE IVPB 500 mg 100 ml IVPB once over 30 mins Volume: 100 ml; Route: br2 IVPB; Infused Over: 30 mins; Site: left hand; 02:31 Follow up: Response: No adverse reaction; IV Status: Completed infusion; IV Intake: al5 100ml 02:47 Drug: cefOXitin IVPB 1 grams IVPB once over 30 mins; (mix in 50 mL NS) Route: IVPB; al5 Infused Over: 30 mins; Site: left hand; 02:52 Follow up: Response: No adverse reaction; IV Status: Infusion continued upon transfer al5 Disposition: 03:17 Co-signature as Attending Physician, Vijay Hills MD I reviewed the patient's care rn provided by the Advanced Practice Provider and agree with the diagnosis and treatment plan. Disposition Summary: 12/01/24 01:10 Transfer Ordered Notes: Transfer Location: [facility] cp Reason: Higher level of care cp Condition: Stable cp Problem: new cp Symptoms: have improved cp Accepting Physician: DR Cochran(12/01/24 03:02) vc1 Diagnosis - Nausea with vomiting, unspecified cp - Ileus, unspecified cp Forms: - Medication Reconciliation Form cp - SBAR form cp Signatures: Dispatcher [employer] EDMS Shira Varner, RN RN Vijay Owens MD MD rn Page, Corey, PA PA cp Giana Garcia RN RN ld1 Milagros Aragon RN RN vc1 Kiana Mcclure RN RN al5 Chelo Thomas RN RN br2 Corrections: (The following items were deleted from the chart) 11/30 20:33 20:33 Chest Single View+RAD.RAD.BRZ ordered. EDMS EDMS 23:45 23:45 Abdomen Pelvis Wo Con+CT.RAD.BRZ ordered. EDMS EDMS 23:49 21:33 Abdomen Pelvis W Con+CT.RAD.BRZ ordered. EDMS EDMS 23:56 23:56 Ondansetron IVP 4 mg IVP once; over 2 minutes ordered. cp cp 12/01 01:41 01:10 Doctor cp cp 03:02 01:41 DR Cochran cp vc1 12/02 01:07 11/30 19:30 Possible causes: recent abdominal surgery with ileostomy on 11-22-2024 cp cp
[2024-12-01] MEDS ORDERED: CEFOXITIN SODIUM 1 GM/VIAL ONE (01:21)
[2024-12-01] MEDS ORDERED: METRONIDAZOLE 500mg IVPB 500 MG/100 ML BAG IV ONE (01:22)
[2024-12-01] MEDS ORDERED: NA CHLORIDE 0.9% 50 ML ONE (01:22)
[2024-12-01 01:42] LABS: Band Neutrophils 4 % (0-1); Blood Morphology Comment NOT SEEN (NOT SEEN); Differential Total Cells Count 100; Lymphocytes 10 % (15-42); Monocytes 2 % (0-10); Platelet Estimate INCR; Reactive Lymphocytes 2 %; Segmented Neutrophils 82 % (40-80)
[2024-12-01 06:12] VITALS: TEMP 98.3
[2024-12-01 06:29] VITALS: BP 109/96; O2SAT 98
--- NOTE | 2024-12-06 12:49 | EKG ---
Test Date: 2024-11-30 Test Time: 21:21:56 Clinical Laboratory Service Teacher: ERIN MEASUREMENT RESULTS: Intervals: Rate: 72 OR: 148 QRSD: 82 QT: 386 QTc: 422 [place]: P: 5 OR: 148 QRS: 11 T: 0 INTERPRETIVE STATEMENTS: Normal sinus rhythm Normal ECG Compared to ECG 04/10/2024 06:43:48 No significant changes Electronically Signed On 12-06-24 12:38:06 POCKET BUILDER by Bonilla Hernandez
--- NOTE | 2024-12-06 12:49 | EKG ---
Test Date: 2024-11-30 Test Time: 21:55:16 Design Cell Engineer: ERIN MEASUREMENT RESULTS: Intervals: Rate: 85 AK: 166 QRSD: 96 QT: 384 QTc: 456 [place]: P: 72 AK: 166 QRS: 89 T: 74 INTERPRETIVE STATEMENTS: Normal sinus rhythm Indeterminate axis Borderline ECG Compared to ECG 04/10/2024 06:43:48 Indeterminate axis now present Electronically Signed On 12-06-24 12:38:04 HOP STRAINER by Bonilla Hernandez
== END 2024-12-01 03:02 | disposition short-term general hospital (02) ==
LOC: ER 18:18
DX: K91.30 Postprocedural intestinal obstruction, unspecified as to partial versus complete (principal); Z98.890 Other specified postprocedural states
CPT/HCPCS: 96365; 96361; 93005; 85025; 36415; 74176; 71045; 96375; 96372; 99284; J0500; J3010; J0694; J2405; J7040; J2550

== ENCOUNTER 2025-02-15 13:39 | Emergency (ER) | payer OTHER ==
[2025-02-15 14:51] LABS: Specific Gravity 1.018 (1.005-1.030); Sqamous Epithelial <5 /HPF (None Seen); Urine Bacteria <20 /HPF (<20); Urine Bilirubin NEGATIVE (Negative); Urine Blood Negative (Negative); Urine Clarity Clear (Clear); Urine Color Light-Yellow (Yellow); Urine Crystals Unidentified Few /HPF (None Seen); Urine Culture Reflex Order REFLEXED; Urine Glucose NEGATIVE (Negative); Urine Ketones NEGATIVE (Negative); Urine Micro Reflex YN NO BILL MICROSCOPIC; Urine Mucus Slight /HPF (None Seen); Urine Nitrite NEGATIVE (Negative); Urine Protein NEGATIVE (Negative); Urine RBC <5 /HPF (None Seen); Urine Urobilinogen Normal (Normal); Urine WBC 20-50 /HPF (<5)
--- NOTE | 2025-02-15 15:46 | RAD REPORT ---
EXAMINATION: ONE VIEW CHEST XR CLINICAL INDICATION: Female, 74 years old.,edema TECHNIQUE: Frontal chest projection is submitted. Examination is limited by patient positioning and t echnique. COMPARISON: 11/30/2024 FINDINGS: The lungs are well inflated and clear apart from streaky mild right infrahilar opacities, which may r eflect atelectasis or scarring. No pneumothorax or sizable effusion. The heart is normal in size. Mediastinal contours are unremarkable. IMPRESSION: No acute intrathoracic abnormalities. Stable findings.
[2025-02-15 15:48] LABS: PT Prothrombin Time 11.6 SECONDS (10-13.0); Protime INR 1.02
[2025-02-15 15:50] LABS: Absolute Eosinophils 0.2 K/uL (0-0.5); Absolute Lymphocytes (CBC) 1.1 K/uL (0.7-4.9); Absolute Monocytes 0.4 K/uL (0.1-1.3); Absolute Neutrophil 3.7 K/uL (1.8-8.0); Basophils % 0.8 % (0-1.3); Hematocrit 32.5 % (36.0-45.0); Hemoglobin 10.8 g/dL (12.0-15.0); Lymphocytes % 20.9 % (15.3-44.8); MCH 29.6 pg (27.0-35.0); MCHC 33.2 g/dL (32.0-36.0); MPV 9.8 fL (7.6-11.3); Monocytes % 7.6 % (3.3-12.3); Neutrophils % 67.7 % (41.7-73.7); Nucleated Red Blood Cells % 0.2 % (0-0); Platelets 289 thou/uL (152-406); RBC Red Blood Cell Count 3.66 M/uL (3.86-4.86); Red Cell Distribution Width 14.9 % (12.1-15.2)
[2025-02-15 15:51] LABS: ALT/SGPT 29 U/L (13-56); AST/SGOT 23 U/L (15-37); Albumin 3.5 g/dL (3.4-5.0); Alkaline Phosphatase 63 U/L (45-117); BUN Blood Urea Nitrogen 10 mg/dL (7-18); Bicarbonate 27 mEq/L (21-32); Bilirubin Total 0.5 mg/dL (0.2-1.0); Globulin 3.4 g/dL (2.3-3.5); Glomerular Filtration Rate 78 ml/min (=/>90); Glucose Level 95 mg/dL (74-106); Magnesium 1.9 mg/dL (1.6-2.4); NT PRO-BNP 330 pg/mL (<125); Protein, Total 6.9 g/dL (6.4-8.2); Sodium Level 141 mEq/L (136-145)
--- NOTE | 2025-02-15 15:54 | RAD REPORT ---
EXAMINATION: US Extrem Venous W Compress Gianluca CLINICAL INDICATION: [facility] MAIN SWELLING Bed Name: [id number] Y TECHNIQUE: Complete bilateral duplex sonography of the BILATERAL lower extremity veins was performed. The examination included compression for vein patency, color Doppler imaging and flow augmentation in response to distal compression of the distal external iliac, common femoral, femoral, popliteal, t ibial, and great and small saphenous veins. COMPARISON: No prior exam. FINDINGS: Duplex sonography testing of the veins of the BILATERAL lower extremity was performed. Color flow tori ging shows all veins to be compressible with ltsp-bi-yjei color filling. Pulsatile and phasic flow is present within all lower extremity deep and superficial veins examined. Medial left lower leg subc utaneous hypoattenuating 1.1 cm structure with edge shadowing, could reflect a small collection, possibly with demineralized margins, versus a thrombosed varicosity. IMPRESSION: There is no deep vein thrombosis bilaterally. Possible small subcutaneous superficial thrombophlebitis at the left lower leg as above.
[2025-02-15 15:55] LABS: Bilirubin Direct < 0.2 mg/dL (0-0.2); Bilirubin Indirect, Calculated 0.3 mg/dL (0.2-0.8)
[2025-02-15] MEDS ORDERED: ONDANSETRON 4 MG/2 ML VIAL ONE (17:09)
[2025-02-15] MEDS ORDERED: POTASSIUM 25 MEQ EFFERV TAB ONE (17:47)
[2025-02-15] MEDS ORDERED: NITROFURAN MACRO 100 MG CAP PO ONE (17:47)
--- NOTE | 2025-02-15 18:15 | ER ---
Nurse's Notes [facility] Name: Andreina Brock Age: 74 yrs Sex: Female : 1950 Arrival Date: 02/15/2025 Time: 13:39 Bed 12 Private MD: Diagnosis: UTI/ Urinary tract infection, site not specified;Edema, unspecified;Vomiting, unspecified Presentation: 02/15 13:52 Chief complaint: Patient states: I have E coli in my bladder and i vomited the iw antibiotic and they told me to come to the ER , was on Macrobid . Started having leg swelling yesterday. Coronavirus screen: At this time, the client does not indicate any symptoms associated with coronavirus-19. Ebola Screen: No symptoms or risks identified at this time. Initial Sepsis Screen: Does the patient meet any 2 criteria? No. Patient's initial sepsis screen is negative. Does the patient have a suspected source of infection? No. Patient's initial sepsis screen is negative. Risk Assessment: Do you want to hurt yourself or someone else?. 13:52 Method Of Arrival: Ambulatory iw 13:57 Onset of symptoms was February 15, 2025. iw 13:57 Acuity: SILVANA 3 iw Historical: - Allergies: 13:54 Cipro; iw 13:54 Codeine; iw 13:54 Metoprolol Tartrate; iw 13:54 PENICILLINS; iw - PMHx: 13:54 Crohn's Disease; Arthritis; Diverticulitis; ulcerative colitis (Diverticulitis); iw - PSHx: 13:54 Illeostomy; Lithotripsy; Total abdominal hysterectomy; iw 13:57 ileostomy reversal; iw Screenin:45 [facility] ED Fall Risk Assessment (Adult) History of falling in the last 3 months, aa5 including since admission No falls in past 3 months (0 pts) Confusion or Disorientation No (0 pts) Intoxicated or Sedated No (0 pts) Impaired Gait No (0 pts) Mobility Assist Device Used No (0 pt) Altered Elimination No (0 pt) Score/Fall Risk Level 0 - 2 = Low Risk Oriented to surroundings, Maintained a safe environment, Educated pt \T\ family on fall prevention, incl call for assistance when getting out of bed, Assessed \T\ reinforced patient's understanding of fall precautions. Abuse screen: Denies threats or abuse. Nutritional screening: No deficits noted. Tuberculosis screening: No symptoms or risk factors identified. Assessment: 15:45 General: Appears comfortable, Behavior is calm, cooperative. Pain: Denies pain. Neuro: aa5 Level of Consciousness is awake, alert, obeys commands, Oriented to person, place, time, situation. Cardiovascular: Patient's skin is warm and dry. Edema 1+ edema noted to right lower extremity and mild edema noted to left lower extremity. Respiratory: Airway is patent Respiratory effort is even, unlabored, Respiratory pattern is regular, symmetrical. GI: Abdomen is round non-distended, Bowel sounds present X 4 quads. Abd is soft and non tender X 4 quads. Reports nausea, vomiting. : Reports mild irritation with urination, recently dx UTI. EENT: No signs and/or symptoms were reported regarding the EENT system. Derm: Skin is pink, warm \T\ dry. Musculoskeletal: Range of motion: intact in all extremities. 16:00 Reassessment: Patient is alert, oriented x 3, equal unlabored respirations, skin aa5 warm/dry/pink. 17:21 Reassessment: Patient is alert, oriented x 3, equal unlabored respirations, skin aa5 warm/dry/pink. 18:00 Reassessment: Patient is alert, oriented x 3, equal unlabored respirations, skin aa5 warm/dry/pink. 18:30 Reassessment: Patient is alert, oriented x 3, equal unlabored respirations, skin aa5 warm/dry/pink. Vital Signs: 13:52 BP 168 / 81; Pulse 58; Resp 16; Temp 97.2; Pulse Ox 98% on R/A; iw 16:00 BP 139 / 89; Pulse 54; Resp 16 S; Pulse Ox 100% on R/A; aa5 17:21 BP 136 / 75; Pulse 57; Resp 15 S; Pulse Ox 100% on R/A; aa5 ED Course: 13:44 Patient arrived in ED. al6 13:48 Yuniel Edmond PA is PHCP. cp 13:48 Yuniel Jean MD is Attending Physician. cp 13:57 Triage completed. iw 13:58 Arm band placed on. iw 14:27 XRAY Chest (1 view) In Process Unspecified. EDMS 15:02 US Extremity Venous W Compression Gianluca In Process Unspecified. EDMS 15:38 Patient placed in an exam room, on a stretcher. aa5 15:44 Jennifer Latham, RN is Primary Nurse. aa5 15:45 Patient has correct armband on for positive identification. Bed in low position. Call aa5 light in reach. Side rails up X 1. Pulse ox on. NIBP on. 18:30 No provider procedures requiring assistance completed. IV discontinued, intact, aa5 bleeding controlled, No redness/swelling at site. Pressure dressing applied. Administered Medications: 16:20 Not Given (pt denies nausea ): ondansetron 4 mg IVP once; over 2 minutes aa5 16:20 CANCELLED (Physician Discretion): meropenem1 grams IV at calculated rate once; (mix in cp NS 100 mL) 17:25 Drug: Ondansetron IVP 4 mg IVP once; over 2 minutes Route: IVP; Site: left antecubital; aa5 18:00 Follow up: Response: No adverse reaction aa5 18:00 Drug: Macrobid PO 100 mg PO once; administer with food Route: PO; aa5 18:30 Follow up: Response: No adverse reaction aa5 18:00 Drug: Potassium PO Effervescent Tablet 50 mEq PO once; dissolve in 4 ounces of water or aa5 juice Route: PO; 18:30 Follow up: Response: No adverse reaction aa5 Medication: 18:00 VIS not applicable for this client. aa5 Outcome: 18:14 Discharge ordered by MD. cp 18:30 Discharged to home ambulatory, with family, aa5 18:30 Condition: stable 18:30 Discharge instructions given to patient, Instructed on discharge instructions, follow up and referral plans. medication usage, Demonstrated understanding of instructions, follow-up care, medications, Prescriptions given X 2, 18:31 Patient left the ED. aa5 Signatures: Dispatcher [employer] [facility] Leeanne Deras RN RN iw Jennifer Latham RN RN aa5 Yuniel Edmond PA PA cp Landin, Alissa al6 Corrections: (The following items were deleted from the chart) 13:58 13:52 Chief complaint: Patient states: I have E coli in my bladder and i vomited the iw antibiotic and they told me to come to the ER , 13:58 13:52 Chief complaint: Patient states: I have E coli in my bladder and i vomited the iw antibiotic and they told me to come to the ER , was on Macrobid iw 02/16 09:37 02/15 15:45 Cardiovascular: Patient's skin is warm and dry. aa5 aa5
--- NOTE | 2025-02-15 18:15 | EDPHYS ---
Physician Documentation [facility] Name: Andreina Brock Age: 74 yrs Sex: Female : 1950 Arrival Date: 02/15/2025 Time: 13:39 Bed 12 Private MD: ED Physician Yuniel Jean HPI: 02/15 14:15 This 74 yrs old Female presents to ER via Ambulatory with complaints of Urinary cp Problem, Leg Swelling. 14:15 The patient presents with swelling, tenderness. The complaints affect the left lower cp leg, right lower leg. Onset: The symptoms/episode began/occurred yesterday. Patient reports being diagnosed with uti and currently taking Nitrofurantoin but vomited the antibiotic after taking it. Historical: - Allergies: 13:54 Cipro; iw 13:54 Codeine; iw 13:54 Metoprolol Tartrate; iw 13:54 PENICILLINS; iw - PMHx: 13:54 Crohn's Disease; Arthritis; Diverticulitis; ulcerative colitis (Diverticulitis); iw - PSHx: 13:54 Illeostomy; Lithotripsy; Total abdominal hysterectomy; iw 13:57 ileostomy reversal; iw ROS: 14:20 Constitutional: Negative for body aches, chills, fever, poor PO intake, cp 14:20 Eyes: Negative for injury, pain, redness, and discharge, cp 14:20 Respiratory: Negative for cough, shortness of breath, wheezing, 14:20 Abdomen/GI: Positive for vomiting, Negative for abdominal pain, diarrhea, constipation, 14:20 MS/extremity: Positive for swelling, of the right lower leg and left lower leg, Negative for injury or acute deformity, decreased range of motion, 14:20 Neuro: Negative for altered mental status, dizziness, headache, numbness, syncope, weakness, 14:20 All other systems are negative, Exam: 14:25 Constitutional: The patient appears in no acute distress, alert, awake, cp non-diaphoretic, non-toxic, well developed, well nourished, 14:25 Head/Face: Normocephalic, atraumatic. cp 14:25 Eyes: Periorbital structures: appear normal, Conjunctiva: normal, no exudate, no injection, Sclera: no appreciated abnormality, Lids and lashes: appear normal, bilaterally, 14:25 ENT: External ear(s): are unremarkable, Nose: is normal, Mouth: Lips: moist, Oral mucosa: moist, Posterior pharynx: Airway: no evidence of obstruction, patent, 14:25 Chest/axilla: Inspection: normal, 14:25 Cardiovascular: Rate: bradycardic, Rhythm: regular, Edema: ankle edema, that is very mild, JVD: is not appreciated, 14:25 Respiratory: the patient does not display signs of respiratory distress, Respirations: normal, no use of accessory muscles, no retractions, labored breathing, is not present, Breath sounds: are clear throughout, no decreased breath sounds, no stridor, no wheezing, 14:25 Abdomen/GI: Inspection: abdomen appears normal, Palpation: abdomen is soft and non-tender, in all quadrants, 14:25 Back: pain, is absent, ROM is normal, 14:25 Neuro: Orientation: to person, place \T\ time. Mentation: is normal, Motor: moves all fours, strength is normal, Sensation: is normal, 15:24 ECG was reviewed by the Attending Physician. Vital Signs: 13:52 BP 168 / 81; Pulse 58; Resp 16; Temp 97.2; Pulse Ox 98% on R/A; iw 16:00 BP 139 / 89; Pulse 54; Resp 16 S; Pulse Ox 100% on R/A; aa5 17:21 BP 136 / 75; Pulse 57; Resp 15 S; Pulse Ox 100% on R/A; aa5 MDM: 14:01 Medical Screening Exam initiated 18:14 Data reviewed: vital signs, nurses notes, lab test result(s), EKG, radiologic studies, plain films, ultrasound, and as a result, I will discharge patient. 18:14 I considered the following discharge prescriptions or medication management in the emergency department Medications were administered in the Emergency Department. See MAR. Independent interpretation of the following test(s) in the Emergency Department EKG: See my EKG interpretation above. Counseling: I had a detailed discussion with the patient and/or guardian regarding the historical points, exam findings, and any diagnostic results supporting the discharge/admit diagnosis, lab results, radiology results, to return to the emergency department if symptoms worsen or persist or if there are any questions or concerns that arise at home. Response to treatment: the patient's symptoms have markedly improved after treatment, no vomiting observed by patient after taking oral antibiotic. will discharge to home for continued monitoring. 02/15 14:05 Order name: Basic Metabolic Panel; Complete Time: 16:14 cp 02/15 16:14 Interpretation: Normal except: K 3.0; CL 108; GFR 78. cp 02/15 14:05 Order name: CBC with Diff; Complete Time: 16:14 cp 02/15 16:14 Interpretation: Normal except: RBC 3.66; HGB 10.8; HCT 32.5. cp 02/15 14:05 Order name: LFT's; Complete Time: 16:14 cp 02/15 16:14 Interpretation: Normal except: A/G 1.0. cp 02/15 14:05 Order name: Magnesium; Complete Time: 16:14 cp 02/15 17:15 Interpretation: Reviewed. cp 02/15 14:05 Order name: NT PRO-BNP; Complete Time: 16:14 cp 02/15 16:15 Interpretation: Reviewed. 02/15 14:05 Order name: PT-INR; Complete Time: 16:14 cp 02/15 14:05 Order name: Troponin HS; Complete Time: 16:14 cp 02/15 17:16 Interpretation: Reviewed. 02/15 14:32 Order name: Urinalysis W/Microscopic; Complete Time: 15:48 cp 02/15 15:48 Interpretation: Normal except: UESTR 75; UWBC 20-50. 02/15 14:58 Order name: Urine Culture EDNC 02/15 14:05 Order name: US Extremity Venous W Compression Gianluca; Complete Time: 16:14 02/15 16:15 Interpretation: Report reviewed. 02/15 14:05 Order name: XRAY Chest (1 view); Complete Time: 15:48 cp 02/15 14:05 Order name: EKG; Complete Time: 14:06 cp 02/15 14:05 Order name: Cardiac monitoring; Complete Time: 15:58 cp 02/15 14:05 Order name: EKG - Nurse/Tech; Complete Time: 15:58 cp 02/15 14:05 Order name: IV Saline Lock; Complete Time: 15:58 cp 02/15 14:05 Order name: Labs collected and sent; Complete Time: 15:58 cp 02/15 14:05 Order name: O2 Per Protocol; Complete Time: 15:58 cp 02/15 14:05 Order name: O2 Sat Monitoring; Complete Time: 15:58 cp EC:24 Rate is 51 beats/min. Rhythm is regular. MT interval is normal. QRS interval is normal. cp QT interval is normal. T waves are Inverted in lead aVR. Interpreted by me. Reviewed by me. Administered Medications: 16:20 Not Given (pt denies nausea ): ondansetron 4 mg IVP once; over 2 minutes aa5 16:20 CANCELLED (Physician Discretion): meropenem1 grams IV at calculated rate once; (mix in cp NS 100 mL) 17:25 Drug: Ondansetron IVP 4 mg IVP once; over 2 minutes Route: IVP; Site: left antecubital; aa5 18:00 Follow up: Response: No adverse reaction aa5 18:00 Drug: Macrobid PO 100 mg PO once; administer with food Route: PO; aa5 18:30 Follow up: Response: No adverse reaction aa5 18:00 Drug: Potassium PO Effervescent Tablet 50 mEq PO once; dissolve in 4 ounces of water or aa5 juice Route: PO; 18:30 Follow up: Response: No adverse reaction aa5 Disposition Summary: 02/15/25 18:14 Discharge Ordered Notes: Location: Home cp Problem: new cp Symptoms: have improved cp Condition: Stable cp Diagnosis - UTI/ Urinary tract infection, site not specified cp - Edema, unspecified cp - Vomiting, unspecified cp Followup: cp - With: Private Physician - When: 2 - 3 days - Reason: Recheck today's complaints Discharge Instructions: - Discharge Summary Sheet cp - Urinary Tract Infection, Adult cp - Vomiting, Adult cp - Peripheral Edema cp - How to Use Compression Stockings cp Forms: - Medication Reconciliation Form cp - Antibiotic Education cp - Prescription Opioid Use cp - Patient Portal Instructions cp - Leadership Thank You Letter cp Prescriptions: - Macrobid 100 mg Oral Capsule - take 1 capsule ORAL route every 12 hours for 7 days; 14 capsule; Refills: 0, cp Product Selection Permitted - ondansetron 8 mg Oral Tablet,disintegrating - take 1 tablet ORAL route every 12 hours; 20 tablet; Refills: 0, Product cp Selection Permitted Signatures: Dispatcher [employer] Leeanne Padilla RN RN iw Jennifer Latham RN RN aa5 Yuniel Edmond PA PA cp Corrections: (The following items were deleted from the chart) 16:20 16:20 Meropenem IV 1 grams IV at calculated rate once; (mix in NS 100 mL) ordered. cp cp
[2025-02-15 18:35] VITALS: TEMP 97.2
[2025-02-15 18:36] VITALS: O2SAT 100
[2025-02-15 18:38] VITALS: BP 136/75
--- NOTE | 2025-02-16 14:16 | EKG ---
Test Date: 2025-02-15 Test Time: 15:15:54 Manager [employer]: ONDINA MEASUREMENT RESULTS: Intervals: Rate: 55 MA: 164 QRSD: 78 QT: 452 QTc: 432 [place]: P: 55 MA: 164 QRS: 28 T: 39 INTERPRETIVE STATEMENTS: Sinus bradycardia Possible Anterior infarct, age undetermined Abnormal ECG Compared to ECG 11/30/2024 21:55:16 Myocardial infarct finding now present Sinus rhythm no longer present Indeterminate axis no longer present Electronically Signed On 02-16-25 14:13:01 CDT by Bonilla Hernandez
== END 2025-02-15 18:31 | disposition home or self-care (01) ==
LOC: ER 13:39
DX: N39.0 Urinary tract infection, site not specified (principal); R60.9 Edema, unspecified
CPT/HCPCS: 93005; 87088; 85025; 81001; 87086; 80048; 36415; 83735; 85610; 80076; 84484; 83880; 71045; 93970; 96374; 99284; J2405; 87077; 87186

== ENCOUNTER 2025-02-21 17:39 | Emergency (ER) | payer OTHER ==
[2025-02-21 19:44] LABS: Specific Gravity 1.021 (1.005-1.030); Sqamous Epithelial <5 /HPF (None Seen); Urine Bacteria None Seen /HPF (<20); Urine Bilirubin NEGATIVE (Negative); Urine Blood Negative (Negative); Urine Clarity Clear (Clear); Urine Color Light-Yellow (Yellow); Urine Glucose NEGATIVE (Negative); Urine Ketones NEGATIVE (Negative); Urine Micro Reflex YN NO BILL MICROSCOPIC; Urine Mucus Slight /HPF (None Seen); Urine Nitrite NEGATIVE (Negative); Urine Protein NEGATIVE (Negative); Urine RBC <5 /HPF (None Seen); Urine Urobilinogen Normal (Normal); Urine WBC <5 /HPF (<5)
--- NOTE | 2025-02-21 19:54 | EDPHYS ---
Physician Documentation [facility] Name: Andreina Brock Age: 74 yrs Sex: Female : 1950 Arrival Date: 02/21/2025 Time: 17:39 Bed 27 Private MD: ED Physician Jose Sanchez HPI: 02/21 19:56 This 74 yrs old Female presents to ER via Ambulatory with complaints of Lab Recheck. sb4 19:56 Patient was diagnosed with a UTI here 6 days ago, has been taking Macrobid. States she sb4 does feel fatigued and nauseous, but is not sure if that is secondary to her recently ostomy. No fever, chills, burning with urination. Was called today and told her urine culture was positive for ESBL and that she needed IV antibiotics. Historical: - Allergies: 18:11 Cipro; db 18:11 Metoprolol Tartrate; db 18:11 PENICILLINS; db 18:11 Codeine; db - PMHx: 18:11 Arthritis; Diverticulitis; Crohn's Disease; ulcerative colitis (Diverticulitis); db - PSHx: 18:11 Illeostomy; Total abdominal hysterectomy; Lithotripsy; ileostomy reversal; db - Immunization history:: Adult Immunizations unknown. - Infectious Disease History:: Denies. - Social history:: Smoking status: Patient denies any tobacco usage or history of. ROS: 19:56 Constitutional: Negative for fever, chills, and weight loss, sb4 19:56 All other systems are negative, 19:56 Abdomen/GI: Positive for nausea, sb4 Exam: 19:56 Constitutional: This is a well developed, well nourished patient who is awake, alert, sb4 and in no acute distress. Head/Face: Normocephalic, atraumatic. Eyes: Extra-ocular motions intact. Periorbital areas with no swelling, redness, or edema. ENT: Mucous membranes moist. Respiratory: No increased work of breathing, no retractions or nasal flaring. Skin: Warm, dry with normal turgor. Normal color with no rashes, no lesions, and no evidence of cellulitis. Vital Signs: 18:10 BP 154 / 78; Pulse 58; Resp 16; Temp 98.7; Pulse Ox 100% ; Height 4 ft. 8 in. ; db 20:10 BP 136 / 66; Pulse 56; Resp 18; Pulse Ox 99% ; cm10 MDM: 18:02 Medical Screening Exam initiated sb4 19:57 Data reviewed: vital signs, nurses notes, lab test result(s), I have discussed the sb4 patient's presentation/case with the attending Emergency Department Physician; and as a result, I will discharge patient. Counseling: I had a detailed discussion with the patient and/or guardian regarding the historical points, exam findings, and any diagnostic results supporting the discharge/admit diagnosis, lab results, the need for outpatient follow up, for definitive care, to return to the emergency department if symptoms worsen or persist or if there are any questions or concerns that arise at home. ED course: Urine shows no sign of infection today. She has been taking Macrobid. Her urine culture grew E. coli ESBL with sensitivity to Macrobid. Have instructed her to continue taking her full course of antibiotics and to return if any new or worsening symptoms. 02/21 18:02 Order name: MONIKA; Complete Time: 19:44 sb4 Administered Medications: No medications were administered Disposition: 20:12 Co-signature as Attending Physician, Jose Sanchez MD I agree with the assessment and jr11 plan of care. Disposition Summary: 02/21/25 19:53 Discharge Ordered Notes: Location: Home sb4 Problem: new sb4 Symptoms: are unchanged sb4 Condition: Stable sb4 Diagnosis - UTI/ Urinary tract infection, site not specified - resolving sb4 Followup: sb4 - With: Private Physician - When: 1 week - Reason: Recheck today's complaints, Re-evaluation by your physician Discharge Instructions: - Discharge Summary Sheet sb4 - Urinary Tract Infection, Adult, [id number] sb4 Forms: - Antibiotic Education sb4 - Patient Portal Instructions sb4 - Leadership Thank You Letter sb4 Signatures: Dispatcher [employer] Jose Baeza MD MD jr11 Lucy Adkins RN RN Marian Cardoso PA-C PA-C sb4
--- NOTE | 2025-02-21 19:54 | ER ---
Nurse's Notes [facility] Name: Andreina Brock Age: 74 yrs Sex: Female : 1950 Arrival Date: 02/21/2025 Time: 17:39 Bed 27 Private MD: Diagnosis: UTI/ Urinary tract infection, site not specified-resolving Presentation: 02/21 18:10 Chief complaint: Patient states: URINE INFECTION. RECEIVED A CALL FROM THIS ER TODAY db AND WAS TOLD TO COME IN. HAD ILEOSTOMY REVERSAL IN JANUARY. Coronavirus screen: Client denies travel out of the [place] in the last 14 days. At this time, the client does not indicate any symptoms associated with coronavirus-19. Ebola Screen: Patient negative for fever greater than or equal to 101.5 degrees Fahrenheit, and additional compatible Ebola Virus Disease symptoms Patient denies exposure to infectious person. Patient denies travel to an Ebola-affected area in the 21 days before illness onset. No symptoms or risks identified at this time. Initial Sepsis Screen: Does the patient meet any 2 criteria? No. Patient's initial sepsis screen is negative. Does the patient have a suspected source of infection? No. Patient's initial sepsis screen is negative. Risk Assessment: Do you want to hurt yourself or someone else? Patient reports no desire to harm self or others. Onset of symptoms was February 21, 2025. 18:10 Method Of Arrival: Ambulatory db 18:10 Acuity: SILVANA 3 db Triage Assessment: 18:11 General: Appears in no apparent distress. comfortable, Behavior is calm, cooperative. db Pain:. Neuro: Level of Consciousness is awake, alert, obeys commands, Oriented to person, place, time, situation. GI: Reports nausea. Historical: - Allergies: 18:11 Cipro; db 18:11 Metoprolol Tartrate; db 18:11 PENICILLINS; db 18:11 Codeine; db - PMHx: 18:11 Arthritis; Diverticulitis; Crohn's Disease; ulcerative colitis (Diverticulitis); db - PSHx: 18:11 Illeostomy; Total abdominal hysterectomy; Lithotripsy; ileostomy reversal; db - Immunization history:: Adult Immunizations unknown. - Infectious Disease History:: Denies. - Social history:: Smoking status: Patient denies any tobacco usage or history of. Screenin:24 [facility] ED Fall Risk Assessment (Adult) History of falling in the last 3 months, cm10 including since admission No falls in past 3 months (0 pts) Confusion or Disorientation No (0 pts) Intoxicated or Sedated No (0 pts) Impaired Gait No (0 pts) Mobility Assist Device Used No (0 pt) Altered Elimination No (0 pt) Score/Fall Risk Level 0 - 2 = Low Risk Oriented to surroundings, Maintained a safe environment, Hourly rounding (assess needs \T\ fall precautionary measures) done. Abuse screen: Denies threats or abuse. Denies injuries from another. Nutritional screening: No deficits noted. Tuberculosis screening: No symptoms or risk factors identified. Assessment: 19:20 General: Appears in no apparent distress. comfortable, Behavior is calm, cooperative, cm10 appropriate for age. Pain: Denies pain. Neuro: No deficits noted. Level of Consciousness is awake, alert, obeys commands, Oriented to person, place, time, situation, Appropriate for age. GI: No deficits noted. No signs and/or symptoms were reported involving the gastrointestinal system. 20:10 Reassessment: Patient appears in no apparent distress at this time. Patient and/or cm10 family updated on plan of care and expected duration. Pain level reassessed. Patient is alert, oriented x 3, equal unlabored respirations, skin warm/dry/pink. Vital Signs: 18:10 BP 154 / 78; Pulse 58; Resp 16; Temp 98.7; Pulse Ox 100% ; Height 4 ft. 8 in. ; db 20:10 BP 136 / 66; Pulse 56; Resp 18; Pulse Ox 99% ; cm10 ED Course: 17:42 Patient arrived in ED. cj3 17:55 Marian Sheldon PA-C is PHCP. sb4 17:55 Jose Sanchez MD is Attending Physician. sb4 18:11 Triage completed. db 18:11 Arm band placed on right wrist. db 18:42 Krysta Marquez, GILDARDO is Primary Nurse. cm10 19:24 [facility] Sent. cm10 19:25 Patient has correct armband on for positive identification. Bed in low position. Call cm10 light in reach. Provided Education on: ER process and procedures.. 19:26 No provider procedures requiring assistance completed. cm10 20:11 Patient did not have IV access during this emergency room visit. cm10 Administered Medications: No medications were administered Medication: 19:24 VIS not applicable for this client. cm10 Outcome: 19:53 Discharge ordered by MD. christian 20:11 Discharged to home ambulatory, with significant other, cm10 20:11 Condition: good 20:11 Discharge instructions given to patient, Instructed on discharge instructions, follow up and referral plans. Demonstrated understanding of instructions, follow-up care, 20:11 Patient left the ED. cm10 Signatures: Lucy Adkins RN RN Marian Cardoso PA-C PAKrysta Sotelo RN RN cm10 Eliza Nunes 3
[2025-02-21 20:17] VITALS: TEMP 98.7
[2025-02-21 20:18] VITALS: BP 136/66; O2SAT 99
== END 2025-02-21 20:11 | disposition home or self-care (01) ==
LOC: ER 17:39
DX: N39.0 Urinary tract infection, site not specified (principal)
CPT/HCPCS: 81001